=== PATIENT | female | born 1940 | race Caucasian/White ===

== ENCOUNTER 2019-02-01 09:09 | Day surgery (SDC) | payer MEDICARE, BC, SELFPAY ==
[2019-01-30 08:48] VITALS: BMI 28.7
[2019-02-01] VITALS (17 sets, daily range): BP systolic 138–174; BP diastolic 73–98; PULSE 65–100; RESP 14–25; TEMP 35.9–36.7; O2SAT 91–97; BMI 28.7
--- NOTE | 2019-02-01 | DI.RAD.S_ITS ---
PROCEDURE: XR CERVICAL SPINE 2V OR 3V INDICATIONS: C3-4, C4-5 ACDF TECHNIQUE: 2 view(s) of the cervical spine were acquired. COMPARISON: None. FINDINGS: Spot fluoroscopic intraoperative views demonstrating C3-C4 and C4-C5 interbody cage grafts with anterior retaining pins Expected intraoperative alignment Dictated by: Gil Meredith M.D. on 02/01/2019 at 12:54 Approved by: Gil Meredith M.D. on 02/01/2019 at 12:58
--- NOTE | 2019-02-01 10:26 | PM.PREOP ---
Pre-operative Note Interval Note History & Physical reviewed/Exam performed by Physician: Yes Changes to H&P: No
--- NOTE | 2019-02-01 10:26 | PM.OP.1 ---
Operative Date/Time/Diagnoses Date of procedure: 02/01/19 Time of procedure: 12:57 Pre-op diagnosis: Cervical stenosis with myelopathy Post-op diagnosis: same Procedure & Clinicians Procedure: C3-4, C4-5 anterior cervical diskectomy and fusion with cages Iliac crest bone graft aspirate Use of microscope Same procedure as scheduled: Yes Indications: [age] year old female with cervical myelopathy. They had failed conservative management and requested operative intervention. Risks and benefits of surgery were discussed and appropriate consents were obtained. Surgeon: Braxton Artis Still Runner: Raymundo Contreras Anesthesia Type: General Operative Notes Findings: None Closure Type: primary Specimen(s): none sent Prosthetic devices, grafts, tissues, transplants, or devices: Tod DELVIN-C Estimated Blood Loss (mL): 5 Blood products transfused: none Procedure in detail: Patient was brought to the operating room and intubated on the table. A time-out was performed. Preoperative antibiotics were given. The neck was prepped and draped in the standard sterile fashion. Using a skin fold, we made a 3 cm oblique incision on the left side. We used Bovie to go through the platysma and then did a standard anterolateral blunt dissection down to the precervical fascia. Fascia was nicked and elevated up. A marker was placed and x-ray was taken for localization. We then subperiosteally elevated up the longus colli muscles. Self-retaining retractors were placed. Highmore pins were placed. We then brought in the microscope. A scalpel used to perform an annulotomy. We then used a combination of pituitaries and curettes and Kerrison to perform a complete anterior diskectomy at C3-4. We used the bur to take down the posterior osteophytes. We took down the PLL and used Kerrison to remove any posterior disc material and osteophytes. At the end we could from the nerve hook cephalad caudally and out the foramen and everything was opened. A small stab incision was made over the left anterior iliac crest. A Jamshidi needle was advanced down the pedicle and 2 mL of bone marrow was aspirated. We then used the trials. We then packed a 14 x 17 x 6mm DELVIN-C cage with Primagen bone graft and the iliac crest harvest. The cage was placed under fluoroscopic guidance. We then placed our two locking plates. X-ray confirmed positioning. We then went down to C4-5. Again a complete anterior diskectomy was performed including taking down the PLL and removing the posterior osteophytes. At the end a nerve hook could be swept throughout and everything was open. We then used the trials. We then packed another 14 x 17 x6mm DELVIN-C cage with Primagen bone graft and the iliac crest harvest. The cage was placed under fluoroscopic guidance. We then placed our two locking plates. The self-retaining retractors and Highmore pins were removed and final x-rays taken. The wound was irrigated. The carotid was beating nicely. She was having some bony oozing. We used FloSeal which slow this down with the wrist a little bit of oozing left. I then placed a Mo drain in the neck to collect any further drainage. The platysma was closed. The superficial was closed. The skin was closed. A sterile dressing was placed. They were then extubated and brought to recovery room with no complications. Complications: none Post-operative Condition: stable Disposition: PACU Plan for aftercare: Inpatient. Up with therapy in the morning.
[2019-02-01] MEDS: LACTATED RINGERS 1,000 ML 42 ML IV ×2 (10:59→12:43)
[2019-02-01] MEDS: CEFAZOLIN 2 GM/100 ML FROZ.PIGGY IV ×2 (11:02→18:33)
--- NOTE | 2019-02-01 11:28 | SUR.OPER ---
Supine, head on gel donut. Arms padded with gel pads, tucked at sides, towel roll under shoulders. Safety belt at thigh. Legs uncrossed.
[2019-02-01] MEDS: SODIUM CHLORIDE 0.9% 1,000 ML, GENTAMICIN 80 MG IRR (11:40)
[2019-02-01] MEDS: THROMBIN (RECOMBINANT) 5,000 UNIT VIAL 5000 UNIT TOP (11:40)
[2019-02-01] MEDS: BUPIVACAINE 0.5% W/ EPI (PF) 10 ML VIAL INJ (11:42)
[2019-02-01] MEDS: fentaNYL 100 MCG/2 ML INJ IV ×2 (13:04→13:16)
[2019-02-01] MEDS: HYDROMORPHONE 2 MG INJ IV ×4 (13:05→13:41)
--- NOTE | 2019-02-01 14:32 | SUR.PHASEI ---
patient taken to floor in stable condition. Report given to receiving RN Irena. All belongings placed patient's room
--- NOTE | 2019-02-01 15:21 | PC.NURSE ---
Pt to floor at 1430. Dressing to anterior neck CDI. Soft collar in place. Pt states that she is having some pain but she is groggy at this time. RR are 14 but she is somulent. SAEED Yancey is floating and will be hanging pts ivf and doing her admission.. Pts spouse Hayley is in the room visiting now. Float RN to give patient some pain medication soon.
[2019-02-01] MEDS: LACTATED RINGERS 1,000 ML 125 ML IV (15:49)
[2019-02-01] MEDS: HYDROCODONE/ACET 5/325 TABLET 1 TAB PO ×2 (15:50→20:56)
[2019-02-01] MEDS: CELECOXIB 200 MG CAPSULE 400 MG PO (15:50)
--- NOTE | 2019-02-01 17:20 | PT-IP ANOTE ---
Attempt to eval pt with pt's spouse Hayley at bedside. Pt is very groggy but able to answer simple questions. She initially agreed to mobilize with PT but she then was not able to maintain conversation and alert. Pt's spouse answer questions for social hx. Will reattempt PT eval tomorrow morning.
[2019-02-01] MEDS: PANTOPRAZOLE 40 MG TABLET PO (20:56)
[2019-02-01] MEDS: GABAPENTIN 300 MG CAPSULE PO (20:56)
[2019-02-01] MEDS: CELECOXIB 200 MG CAPSULE PO (20:56)
[2019-02-01] MEDS: SENNOSIDES 8.6 MG TABLET 17.2 MG PO (20:57)
[2019-02-01] MEDS: DOCUSATE 100 MG CAPSULE PO (20:57)
[2019-02-01] MEDS: SERTRALINE 50 MG TABLET 150 MG PO (20:57)
[2019-02-01] MEDS: SIMVASTATIN 40 MG TABLET PO (20:57)
[2019-02-01] MEDS: BETAMETH DIP AUGM 0.05% OINT 15 GM 1 APPLIC TOP (20:58)
[2019-02-01] MEDS: BUSPIRONE 15 MG TABLET 30 MG PO (20:58)
[2019-02-02] MEDS: LACTATED RINGERS 1,000 ML 125 ML IV (00:05)
[2019-02-02] MEDS: CEFAZOLIN 2 GM/100 ML FROZ.PIGGY IV (03:33)
[2019-02-02] MEDS: HYDROCODONE/ACET 5/325 TABLET 1 TAB PO ×2 (03:38→08:49)
[2019-02-02 04:47] VITALS: BP 142/64; PULSE 65; RESP 16; TEMP 36.7; O2SAT 95
[2019-02-02] MEDS: LEVOTHYROXINE 88 MCG TABLET PO (06:06)
--- NOTE | 2019-02-02 07:11 | PM.PNPO.1 ---
Subjective Subjective Date Patient Seen: 02/02/19 Time Patient Seen: 07:11 Interval history: Pain under good control. She still wobbly with her balance but no different than she was coming into surgery. Exam Vital Signs (past 8 hours): - 02/01/19 23:50 02/02/19 04:47 Temperature 98.0 F 98.1 F Pulse Rate 95 H 65 Respiratory Rate 15 16 Blood Pressure 149/80 H 142/64 H Pulse Oximetry 95 95 Oxygen Delivery Method Nasal Cannula Oxygen Flow Rate 1 Const Orientation: alert and oriented x3 Back/Spine/Pelvis Other: CDI. 5/5 motor both upper extremities. Drain output 70/20 Assessment & Plan Post-op Postoperative Procedures: Procedures Operation Date: 02/01/19 11:15 Actual Procedures Side Surgeon p C34 & C45 anterior cervical discectomy and fusion w/ bone graft and hardware Not Applicable Braxton Artis MD She is doing well. I removed her drain. Plan to discharge her home today.
[2019-02-02 08:00] VITALS: BP 109/55; PULSE 64; RESP 16; TEMP 36.7; O2SAT 93
[2019-02-02] MEDS: DOCUSATE 100 MG CAPSULE PO (08:49)
[2019-02-02] MEDS: CELECOXIB 200 MG CAPSULE PO (08:49)
[2019-02-02] MEDS: BETAMETH DIP AUGM 0.05% OINT 15 GM 1 APPLIC TOP (08:50)
--- NOTE | 2019-02-02 09:02 | PT.IIE ---
Current Diagnoses Other spondylosis with myelopathy, cervical region (02/01/19) Spinal stenosis, cervical region (02/01/19) Cervicalgia (02/01/19) Surgery Performed Operation Date: 02/01/19 11:15 Actual Procedures p C34 & C45 anterior cervical discectomy and fusion w/ bone graft and hardware(Not Applicable) - Braxton Artis MD Surgical History (Last Updated 01/30/19 @ 09:45 by Sarah Duff RN) History of arthroplasty of right knee (Acute) History of carpal tunnel release (Acute) Hx of abdominal surgery (Acute) Hx of appendectomy (Acute) Hx of bilateral cataract extraction (Acute) Hx of hemorrhoidectomy (Acute) Hx of knee surgery (Acute) Hx of shoulder surgery (Acute) S/P left unicompartmental knee replacement (Acute 05/22/17) Medical History (Last Updated 01/30/19 @ 09:45 by Sarah Duff RN) ADHD (Acute) Anxiety (Acute) Asthma (Acute) BCC (basal cell carcinoma) (Acute) Bradycardia (Acute) Chronic back pain (Acute) Chronic neck pain (Acute) CKD (chronic kidney disease), stage III (Acute) Depression (Acute) Dermatitis (Acute) Ectopic beats (Acute) Fragile skin (Acute) GERD (gastroesophageal reflux disease) (Acute) Hearing loss (Acute) Hemorrhoids (Acute) Hepatitis C (Acute) HLD (hyperlipidemia) (Acute) Hypothyroidism (Acute) Osteoarthritis (Acute) Rheumatic fever (Acute ~194) RLS (restless legs syndrome) (Acute) SCC (squamous cell carcinoma) (Acute ~10/2018) Spinal stenosis (Acute) Vertigo (Acute) Physical Therapy Inpatient Evaluation/Re-Eval M1 PT/OT-IP Prior Functional Status Start: 02/01/19 16:34 Freq: NEEDED Status: Discharge Protocol: Document 02/02/19 09:02 AB (Rec: 02/02/19 13:32 AB [id number]) Medical Review Prior Functional Status Medical History Reviewed Yes Diet/Fluid Consistency Regular Communication Able to make needs known Mobility and Gait pt stated that she is modified independent with all mobilities and ambulation using SPC indoors but uses her ski poles for outdoor mobility. stated that she has dizziness for a while that is the reason why she had her cervical sx. Social History Household Members spouse Living Arrangements House Number of Floors (Floors) Two Floors Number of Stairs To Enter/Railing? 3 ELISE without rail. 13 steps to bottom floor (R rail down and L sided wall for support) Bathroom with walk in shower on the bottom floor bathroom with tub on the main floor. Home Environment Standard Height Toilet,Walk in Shower,Tub/Shower,Built-In Shower Seat Home Equipment Front Wheel Walker,Straight Cane,Shower Seat with Backrest Employment Status Retired M2 PT-IP Current Condition Start: 02/01/19 16:34 Freq: NEEDED Status: Discharge Protocol: Document 02/02/19 09:02 AB (Rec: 02/02/19 13:32 AB [id number]) Physical Therapy Current Condition Current Condition Evaluation Date 02/02/19 Treatment Diagnosis C3-4, C4-5 ACDF; difficulty in walking Onset Date 02/01/19 Precautions Cervical Spine Precautions Soft Collar for Comfort,No Heavy Lifting,Log Roll M3 PT-IP Subjective Start: 02/01/19 16:34 Freq: NEEDED Status: Discharge Protocol: Document 02/02/19 09:02 AB (Rec: 02/02/19 13:32 AB [id number]) Subjective Physical Therapy Visit Type Type Initial Evaluation Visit Start Time 09:02 Visit Stop Time 09:57 Total Visit Minutes 55 Number of SQL SERVER ARCHITECT Visits 0 Physical Therapy Visit Comments Patient Comments pt agreeable to do PT; [place] Therapy Pain Assessment Pain When Pain Assessed At Rest Pain Present Pain Present Pain Reported Location Neck Intensity 3 Scale Used Numeric (1 - 10) Pain Management Techniques Re-positioning,Timing of Activity with Medications M4 PT-IP Mobility and Gait Start: 02/01/19 16:34 Freq: NEEDED Status: Discharge Protocol: Document 02/02/19 09:02 AB (Rec: 02/02/19 13:32 AB [id number]) PT-Bed Mobility Assessment Supine to Sit Supine to Sit Standby Assistance Sit to Supine Sit to Supine Standby Assistance PT-Transfer Assessment Sit to and From Stand Sit to and from Stand Contact Guard Assistance Equipment Transfer Assistive Device Gait Belt,Front Wheeled Walker Orthotic/Prosthetic Devices or Brace: No Transfers Transfer Destination Chair Transfer Technique ambulated using FWW Transfer Ability Level of Assist Contact Guard Assistance Comments Mobility Comments bed mobility training x 3 sets : required initial cues but able to complete without cues on last set caregiver training conducted with spouse. educated on use of safety belt on how to assist pt. spouse was able to assist pt with transfers, ambulation using SPC safely. Gait Assessment Gait Gait Assistance Required: Contact Guard Assist,Minimum Assistance Distance (Feet) 40 Able to Maintain Weight Bearing Status Yes During Gait Assistive Devices Assistive Device Gait Belt,Straight Cane,Front Wheeled Walker Orthotic/Prosthetic Devices or Brace: No Gait Deviations General Gait Pattern Antalgic,Decreased Stride Length,Decreased Feet Clearance,Step-to Gait Factors Limiting Gait Function Factors Limiting Gait Function Decreased Activity Tolerance, Decreased Strength,Difficulty Following Directions,Limited Range of Motion,Pain,Poor Balance,Poor Safety Awareness Comments Gait Comments pt completed ambulation using FWW CGA ~ 30 ft. completed ambulation using SPC 40 ft CGA to min A and cues. educated pt on safety and use of FWW for safety. pt and spouse agreed. Stair Climbing Assessment Evaluation Level of Assist On Stairs Minimal Assistance,1 Person Assistance Devices Stair Climbing Assistive Devices Straight Cane Technique/Endurance Stair Climbing Direction Ascend and Descend Stair Climbing Technique Step to Step Number of Steps Climbed 1 Query Text: Stair Climbing Set # Repetitions (reps) 3 Comments Stair Climbing Comments completed up/down step stool using SPC and BASEBALL GLOVE SHAPER and pt completed with PT assisting initially min A. educated spouse on how to assist pt and completed up/down step with pt and spouse was able to assist pt safely. PT-Balance Assessment Sitting Balance and Reactions Static Sitting Balance Ability Normal Dynamic Sitting Balance Ability Good Standing Balance and Reactions Static Standing Balance Ability Fair Dynamic Standing Balance Ability Fair Device Used SPC M5 PT-IP Objective Assessments Start: 02/01/19 16:34 Freq: NEEDED Status: Discharge Protocol: Document 02/02/19 09:02 AB (Rec: 02/02/19 13:32 AB [id number]) Orientation Orientation/Cognition Level of Alertness Alert Orientation Name,Place,Situation Safety Awareness Decreased Safety Awareness Gross Range of Motion Lower Extremity ROM Assessment Within Functional Limits Strength Lower Extremity Strength Assessment Within Functional Limits Muscle Tone Muscle Tone WNL Yes M6 PT-IP Treatment Start: 02/01/19 16:34 Freq: NEEDED Status: Discharge Protocol: Document 02/02/19 09:02 AB (Rec: 02/02/19 13:32 AB [id number]) Physical Therapy Treatment Education Education Provided Precautions,Weight Bearing Status,Post-Op Packet,Safety M7 PT-IP Assessment and Plan Start: 02/01/19 16:34 Freq: NEEDED Status: Discharge Protocol: Document 02/02/19 09:02 AB (Rec: 02/02/19 13:32 AB [id number]) PT Summary Assessment and Plan Potential Rehabilitation Potential Good Status of Condition at Evaluation Stable Summary Impairments Pain,ROM,Strength,Balance, Coordination,Sensation,Bed Mobility,Transfers,Gait, Activity Tolerance Assessment Summary pt doing well with mobility but requires assistance for safety. caregiver training conducted and spouse was able to assist pt safely. pt plans to go home today. Goals Bed Mobility Goal Independent Transfer Goal Independent,Cane,Front Wheeled Walker Gait Goal Independent,Cane,Front Wheel Walker Gait Distance 200 Other Goals up/down 3 steps without rails SBA Days to Meet Goals 3 Frequency of Treatment Frequency Of Treatment Twice a Day Treatment Plan Physical Therapy Treatment Plan Bed Mobility Training,Transfer Training,Gait Training, Therapeutic Exercise,Balance Retraining,Post Op Education, Discharge Planning,Hot or Cold Pack,Neuromuscular Re-ed, Coordination Retraining,Manual Therapy Recommendations To Nursing Amount of Assist Needed 1 Person Assist Discharge Recommendations PT Discharge Recommendations Home with Assistance, Outpatient PT
--- NOTE | 2019-02-02 10:55 | OT.IP.EVAL ---
Current Diagnoses Other spondylosis with myelopathy, cervical region (02/01/19) Spinal stenosis, cervical region (02/01/19) Cervicalgia (02/01/19) Surgery Performed Operation Date: 02/01/19 11:15 Actual Procedures p C34 & C45 anterior cervical discectomy and fusion w/ bone graft and hardware(Not Applicable) - Braxton Artis MD Past Medical History (Last Updated 01/30/19 @ 09:45 by Sarah Duff RN) ADHD (Acute) Anxiety (Acute) Asthma (Acute) BCC (basal cell carcinoma) (Acute) Bradycardia (Acute) Chronic back pain (Acute) Chronic neck pain (Acute) CKD (chronic kidney disease), stage III (Acute) Depression (Acute) Dermatitis (Acute) Ectopic beats (Acute) Fragile skin (Acute) GERD (gastroesophageal reflux disease) (Acute) Hearing loss (Acute) Hemorrhoids (Acute) Hepatitis C (Acute) HLD (hyperlipidemia) (Acute) Hypothyroidism (Acute) Osteoarthritis (Acute) Rheumatic fever (Acute ~1943) RLS (restless legs syndrome) (Acute) SCC (squamous cell carcinoma) (Acute ~10/2018) Spinal stenosis (Acute) Vertigo (Acute) Surgical History (Last Updated 01/30/19 @ 09:45 by Sarah Duff RN) History of arthroplasty of right knee (Acute) History of carpal tunnel release (Acute) Hx of abdominal surgery (Acute) Hx of appendectomy (Acute) Hx of bilateral cataract extraction (Acute) Hx of hemorrhoidectomy (Acute) Hx of knee surgery (Acute) Hx of shoulder surgery (Acute) S/P left unicompartmental knee replacement (Acute 05/22/17) Occupational Therapy Inpatient Evaluation/Re-Eval M1 PT/OT-IP Prior Functional Status Start: 02/01/19 16:34 Freq: NEEDED Status: Active Protocol: Document 02/02/19 13:57 CGR (Rec: 02/02/19 14:10 CGR [id number]) Medical Review Prior Functional Status Medical History Reviewed Yes Diet/Fluid Consistency Regular Communication Able to make needs known Mobility and Gait pt stated that she is modified independent with all mobilities and ambulation using SPC indoors but uses her ski poles for outdoor mobility. stated that she has dizziness for a while that is the reason why she had her cervical sx. Activities of Daily Living and IADL's Pt was IND for all ADLs Social History Household Members spouse Living Arrangements House Number of Floors (Floors) Two Floors Number of Stairs To Enter/Railing? 3 ELISE without rail. 13 steps to bottom floor (R rail down and L sided wall for support) Bathroom with walk in shower on the bottom floor bathroom with tub on the main floor Pt states they typically stay on the main floor. 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 M2 OT-IP Current Condition Start: 02/02/19 13:57 Freq: Status: Active Protocol: Document 02/02/19 13:57 CGR (Rec: 02/02/19 14:10 CGR [id number]) Occupational Therapy Current Condition Current Condition Evaluation Date 02/02/19 Treatment Diagnosis c3-5 anterior cervical discectomy and fusion. Post Operative Precautions Cervical Spine Precautions Soft Collar for Comfort,No Heavy Lifting,Log Roll M3 OT- IP Subjective and Pain Start: 02/02/19 13:57 Freq: Status: Active Protocol: Document 02/02/19 13:57 CGR (Rec: 02/02/19 14:10 CGR [id number]) OT- Subjective Occupational Therapy Visit Type Type Initial Evaluation Visit Start Time 09:55 Visit Stop Time 10:55 Total Visit Minutes 60 Notes Pt provided with hip kit and educated on LB dressing using hip kit. OT Pain Assessment Pain When Pain Assessed At Rest Pain Present Pain Present Pain Reported Location Neck Intensity 2 Scale Used Numeric (1 - 10) Management Techniques Timing of Activity with Medications M4 OT- IP ADL's Start: 02/02/19 13:57 Freq: Status: Active Protocol: Document 02/02/19 13:57 CGR (Rec: 02/02/19 14:10 CGR [id number]) OT [id number] Comments OT Self-Feeding Comments not meal time OT ADL-Grooming General Evaluation Grooming Ability Independent Areas Needing Assistance Retrieving/Set-up of Grooming Items,Face Washing Comments OT Grooming Comments standing at sink OT ADL-Oral Care General Eval Oral Care Ability Independent Comments Oral Care Comments standing at sink OT ADL-Dressing General Eval Upper Body Dressing Ability Independent Lower Body Dressing Ability Standby Assistance Areas Needing Assistance Underpants/Brief,Socks,Shoes Assistive Devices Dressing Assistive Devices Traffic Operations Engineer,Sock Aid Comments OT Dressing Comments Pt educated on use of hip kit and provided with hip kit for home use. OT ADL-Toileting General Evaluation Toileting Ability Independent OT ADL-Bathing Comments OT Bathing Comments not performed in this session. M5 OT- IP IADL's Start: 02/02/19 13:57 Freq: Status: Active Protocol: Document 02/02/19 13:57 CGR (Rec: 02/02/19 14:10 CGR [id number]) OT-Instrumental Activities of Daily Living Deficits IADL Deficits Identified Deficits Home Safety Awareness Awareness of Need for Assistance at Home Good Awareness Ability to Problem Solve Emergency Able to Problem Solve Situations Medication Management Medication Management No Deficits Identified Money Management Money Management No Deficits Identified Meal Preparation Meal Preparation Caregiver Provides Assist Heel Packer Heel Packer Caregiver Provides Assist Driving Driving Caregiver Provides Assist M6 OT- IP Functional Cognition Start: 02/02/19 13:57 Freq: Status: Active Protocol: Document 02/02/19 13:57 CGR (Rec: 02/02/19 14:10 CGR [id number]) Cognitive Factors Limiting Selfcare Function Cognitive Ability Level of Alertness Alert Patient Orientation Name,Age,Birthday,Month,Date, Year,Day of Week,Place, Situation Attention Span Ability Capable of Focused Attention, Capable of Sustained Attention Ability to Follow Commands Able to Follow Multi-Step Commands Memory Description No Deficits Noted Safety Awareness No Deficits Noted Problem Solving Ability No deficits Noted Executive Function Ability No Deficits Noted Abstract Thinking Ability No Deficits Noted OT- Vision and Hearing OT- Hearing Assessment OT- Hearing Assessment Use of Hearing Aids OT- Vision Assessment Vision History Cataracts Visual Acuity WFL,Glasses For Reading Visual Attentiveness WFL Occular Pursuits WFL Visual Convergence WFL Visual Moore WFL Vision Assessment Comments Pt has a hx of cateract sx. M7 OT- IP Mobility and Balance Start: 02/02/19 13:57 Freq: Status: Active Protocol: Document 02/02/19 13:57 CGR (Rec: 02/02/19 14:10 CGR [id number]) OT-Transfer Assessment Sit to and From Stand Sit to and from Stand Contact Guard Assistance Transfers Transfer Ability Contact Guard Assistance Technique Transfer Destination Chair,Toilet Transfer Technique Stand Step Pivot Devices Transfer Assistive Devices Gait Belt,Front Wheeled Walker Comments Mobility Comments mobility around the room. OT- Gait Assessment Gait Gait Assistance Required: Contact Guard Assist Assistive Devices Assistive Device Gait Belt,Front Wheeled Walker Comments Gait Ability Comments mobility around the room. OT- Balance Assessment Sitting Balance and Reactions Static Sitting Balance Ability Good Dynamic Sitting Balance Ability Fair M8 OT- IP Objective Assessments Start: 02/02/19 13:57 Freq: Status: Active Protocol: Document 02/02/19 13:57 CGR (Rec: 02/02/19 14:10 CGR [id number]) OT Gross Range of Motion Upper Extremity Range of Motion Assessment Within Functional Limits OT Strength Upper Extremity Strength Assessment Within Functional Limits Comments Strength Comments noted weakness to the R hand which pt states was there prior to sx. Pt is right handed. OT- Coordination Assessment Upper Extremity Finger to Nose Test Within Functional Limits Finger Tapping Test Within Functional Limits OT-Muscle Tone Assessment Muscle Tone WNL Yes OT Sensation Assessment Edema Edema Absent M9 OT- IP Assessment and Plan Start: 02/02/19 13:57 Freq: Status: Active Protocol: Document 02/02/19 13:57 CGR (Rec: 02/02/19 14:10 CGR [id number]) OT Summary Assessment and Plan Potential Rehabilitation Potential Excellent Analytic Complexity at Evaluation Low Summary OT Impairments Pain,Strength,Balance,Grooming ,Dressing,Toileting,Bathing, Toilet Transfers,Shower Transfers Progress Towards Goals Progressing Toward Goals Assessment Summary Pt presents as a low complexity evaluation. Pt is s /p C3-5 anterior discectomy and fusion and is reporting some pain with activity. Pt is progressing well and likely is ready for discharge home with spouse who appears very supportive. Pt educated on cervical precautions and home safety. Pt demonstrated ability to use hip kit for LB dressing. No further OT needs at this time. Frequency of Treatment Frequency Of Treatment Discharge Discharge Recommendations OT Discharge Recommendations Home with Assistance
--- NOTE | 2019-02-02 11:14 | PC.NURSE ---
Pts dressing to anterior neck changed by Dr. Artis this morning. JOYCELYN drain taken out.. Soft collar in place. Pt worked with physical therapy and occupational therapy and is now going to be discharged. She does have some balance issues but her significant other is home with patient and attentive to needs.
== END 2019-02-02 11:35 | disposition home or self-care (01) ==
LOC: AC 02-02 11:16 → OR 02-03 11:09
PROVIDERS: PCP Family Medicine; Visit Provider Orthopaedic Surgery
PROC: (CPT 22551; principal; 2019-02-01 11:15)
DX: M48.02 Spinal stenosis, cervical region (principal); M47.12 Other spondylosis with myelopathy, cervical region; M25.78 Osteophyte, vertebrae
CPT/HCPCS: 22551; 22552; 22853 ×2; 20939; 72040; 76000; 97161; 97165; 97530; 97535; C1776; J0330; J0690; J1100; J1170; J2405; J2704; J3010

== ENCOUNTER → 2020-01-21 12:44 | Outpatient (CLI) | payer MEDICARE, BC, SELFPAY ==
[2019-02-01 15:59] VITALS: BMI 28.7
--- NOTE | 2020-01-21 | DI.MRI.S_ITS ---
PROCEDURE: MR LUMBAR SPINE WO CON INDICATIONS: Low back pain TECHNIQUE: Noncontrast sagittal T1 spin echo and T2 fast echo, sagittal STIR, axial T1 and T2 fast spin echo through the lumbar spine. In cases with scoliosis, additional coronal T2 fast spin echo may be performed. COMPARISON: [facility], MR, MR LUMBAR SPINE WITHOUT CONTRAST, 12/24/2018, 18:50. [facility] [place], CR, XR LUMBAR SPINE 2 OR 3 VIEWS, 01/13/2020, 10:21. FINDINGS: Image quality: Excellent. Alignment and Curvature: There is trace retrolisthesis of L1 on L2, L2 on L3, L3 on L4, trace anterolisthesis of L4 on L5. Bone Marrow: Marrow is of normal overall signal. However, there is increased signal identified along the superior endplate of L3 with linear hypointensity on T1 sequence. Prominent Schmorl's nodes are noted along superior endplates of L2, L4 and L5 as well as inferior endplates of L1, L2, L3 and L4. No acute vertebral body compression fractures. Spinal Cord: Conus medullaris terminates at the L1-L2 level. Visualized cord demonstrates normal signal and size. Paraspinous Soft Tissues: No paravertebral masses. Discs: Moderate to severe desiccation is present throughout the lumbar spine. L1-L2: Mild disc bulge with mild spinal stenosis. Moderate to severe left and mild right foraminal narrowing with facet and ligamentum flavum hypertrophy. Slight interval progression on the left is noted. L2-L3: Mild disc bulge with moderate spinal stenosis. Mild right and ngwc-ee-cznywpay left foraminal narrowing with facet and ligamentum flavum hypertrophy. No interval change. L3-L4: Mild disc bulge with moderate spinal stenosis. Dtio-pu-nkdwfjuz bilateral foraminal narrowing with slight interval progression on the right compared to prior exam. Facet and ligamentum flavum hypertrophy are present. L4-L5: Mild disc bulge with moderate to severe spinal stenosis with slight flattening of the anterior canal. Severe right and moderate left foraminal narrowing with facet and ligamentum flavum hypertrophy. There is slight compression of the exiting L4 nerve root, unchanged. L5-S1: Mild disc bulge with mild spinal stenosis. Moderate to severe bilateral foraminal narrowing with facet hypertrophy, minimally progressive. IMPRESSION: 1. Multilevel degenerative changes with areas of slight interval progression as noted above. 2. Multilevel foraminal narrowing most severe at L4-5 secondary to facet arthropathy. 3. Increased marrow signal at L3 with linear hypointensity along the superior endplate suggestive of subacute fracture. Dictated by: Gerri Carlson M.D. on 01/21/2020 at 16:47 Approved by: Gerri Carlson M.D. on 01/21/2020 at 16:55
== END ==
PROVIDERS: PCP Family Medicine; Referring Provider Family Medicine; Visit Provider Orthopaedic Surgery
DX: M54.5 Low back pain (principal); M47.816 Spondylosis without myelopathy or radiculopathy, lumbar region; M48.061 Spinal stenosis, lumbar region without neurogenic claudication
CPT/HCPCS: 72148

== ENCOUNTER → 2020-01-27 14:00 | Outpatient (CLI) | payer MEDICARE, BC, SELFPAY ==
[2019-02-01 15:59] VITALS: BMI 28.7
[2020-01-27 15:49] LABS: COVID19 -Nasal RAPID Negative (Negative)
== END ==
PROVIDERS: PCP Family Medicine; Visit Provider Physician Assistant
DX: Z11.59 Encounter for screening for other viral diseases (principal)
CPT/HCPCS: 87635

== ENCOUNTER → 2020-01-29 11:45 | Outpatient (CLI) | payer MEDICARE, BC, SELFPAY ==
[2019-02-01 15:59] VITALS: BMI 28.7
[2020-01-29 12:31] LABS: Add Manual Diff / Slide Review NO; Basophils Absolute Auto 100 /uL (0-100); Basophils Percent Auto 0.7 % (0-2); Eosinophils Absolute Auto 200 /uL (0-450); Eosinophils Percent Auto 2.3 % (2-4); Hematocrit 35.7 % (36-46); Lymphocytes Absolute Auto 1500 /uL (1100-4500); Lymphocytes Percent Auto 18.5 % (25-40); Mean Corpuscular HGB Conc 33.7 % (30-36); Mean Corpuscular Hemoglobin 33.1 PG (26-34); Mean Corpuscular Volume 98.2 fL (80-100); Monocytes Absolute Auto 300 /uL (0-900); Monocytes Percent Auto 4.2 % (3-14); Neutrophils Absolute Auto 5900 /uL (1500-7000); Neutrophils Percent Auto 74.3 % (50-75); Platelet Count 199 X10^3/uL (150-400); Red Blood Cell Count 3.64 X10^6/uL (4.0-5.2); Red Cell Distribution Width 13.6 % (11.6-14.8); White Blood Cell Count 7.9 X10^3/uL (4.5-11.0)
== END ==
PROVIDERS: PCP Family Medicine; Referring Provider Orthopaedic Surgery; Visit Provider Orthopaedic Surgery
DX: Z01.812 Encounter for preprocedural laboratory examination (principal); Z01.818 Encounter for other preprocedural examination
CPT/HCPCS: 36415; 85025; 93005

== ENCOUNTER 2020-01-29 12:28 | Day surgery (SDC) | payer MEDICARE, BC, SELFPAY ==
[2019-02-01 15:59] VITALS: BMI 28.7
[2020-01-27 12:05] VITALS: BMI 29.8
[2020-01-29] VITALS (27 sets, daily range): BP systolic 104–163; BP diastolic 60–91; PULSE 64–129; RESP 12–16; TEMP 36.2–36.9; O2SAT 91–99; BMI 29.8
--- NOTE | 2020-01-29 | DI.RAD.S_ITS ---
PROCEDURE: XR LUMBAR SPINE MIN 4V INDICATIONS: KYPHOPLASTY L3 TECHNIQUE: To views of the lumbar spine acquired. COMPARISON: None. FINDINGS: Postprocedural changes compatible with L3 kyphoplasty. Contrasted methylmethacrylate contained within the L3 vertebral body. IMPRESSION: Expected postprocedural change for L3 kyphoplasty. Dictated by: Barbara Ribeiro MD, PhD on 01/29/2020 at 17:36 Approved by: Barbara Ribeiro MD, PhD on 01/29/2020 at 17:37
--- NOTE | 2020-01-29 | PATH_ITS ---
[facility] Accession Number: [id number] . 01 Material submitted: . back - BONE LUMBAR SPINE, L-3 . 01 Clinical history: . SDC . 01 Diagnosis: Bone, Lumbar Spine, Biopsy: Fragments of marrow with trilineage hematopoiesis and focal fibrosis and minimal fragments of bone. No evidence of malignancy identified in sections examined. MRV 01/31/2020 1651 Local . 01 Electronically signed: . Jayden Lee MD, Dermatopathologist NPI- [id number] . 01 Gross description: . BONE LUMBAR SPINE, L-3: Received in formalin are minute fragments of bone and hemorrhagic material measuring 1.7 x 0.7 x 0.2 cm in aggregate. Submitted in toto in 1 cassette. /QBJ 01/30/2020 0936 Local . 01 Pathologist provided ICD-10: S32.030A . 01 CPT . 904306 Performed at: [address] [facility] [address], [place], [place] [id number] MD Benitez Jacobs MD Phone: [phone]
[2020-01-29] MEDS: LACTATED RINGERS 1,000 ML 42 ML IV (13:46)
--- NOTE | 2020-01-29 15:32 | PM.HP.1 ---
History of Present Illness History of Present Illness Date Patient Seen: 01/29/20 Time Patient Seen: 15:32 Chief complaint: SDC Narrative: 79-year-old female with back pain. She fell down going down the stairs a few weeks ago and has had severe increasing pain since. She denies pain numbness or weakness in the legs although they feel wobbly. She has been basically bedridden. Vicodin as help with pain but it still severe. Patient History Medical History ADHD Anxiety Asthma BCC (basal cell carcinoma) Bradycardia Chronic back pain Chronic neck pain CKD (chronic kidney disease), stage III Depression Dermatitis Ectopic beats Fragile skin GERD (gastroesophageal reflux disease) Hearing loss Hemorrhoids Hepatitis C HLD (hyperlipidemia) Hypothyroidism Osteoarthritis Rheumatic fever (~194) RLS (restless legs syndrome) SCC (squamous cell carcinoma) (~10/2018) Spinal stenosis Vertigo Surgical History History of arthroplasty of right knee History of carpal tunnel release Hx of abdominal surgery Hx of appendectomy Hx of bilateral cataract extraction Hx of fusion of cervical spine (02/01/19) Hx of hemorrhoidectomy Hx of knee surgery Hx of shoulder surgery 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) Family & Social History Social History: household members spouse Prior Living Arrangements House Safety & Behavioral: Feels Safe in Current Yes Environment Been Physically Hurt or No Threatened By a Person Suicidal Ideation Description None Suicide Plan Description No Plan Tobacco & Substance use: Smoking Status Never smoker alcohol intake current alcohol intake frequency holiday/special occasion Substance Use Type does not use Meds Home Medications and Allergies Home Medications Medication Instructions Recorded Confirmed Type levothyroxine 0.088 mg PO QAM #90 tab 08/02/16 01/29/20 Rx albuterol sulfate 90 mcg/actuation 2 puff INHALATION Q4-6H PRN 09/17/18 01/27/20 History aerosol inhaler lorazepam 0.5 mg tablet 0.25 mg PO BID-TID PRN #30 tab 09/17/18 01/29/20 Rx simvastatin 40 mg tablet 40 mg PO BEDTIME 09/17/18 01/29/20 History betamethasone valerate 1 applic TOPICAL BID 01/30/19 01/27/20 History esomeprazole magnesium [Nexium] 40 mg PO BEDTIME 01/30/19 01/29/20 History hydrocodone-acetaminophen 1 tab PO Q4HR PRN #20 tab 02/02/19 01/29/20 Rx sertraline 100 mg tablet 150 mg PO BEDTIME #45 tab 06/07/19 01/29/20 Rx buspirone 30 mg tablet 30 mg PO BEDTIME tab 07/22/19 01/29/20 History Allergies Allergy/AdvReac Type Severity Reaction Status Date / Time atorvastatin [ATORVASTATIN] AdvReac Intermediate stomach Verified 07/22/19 15:08 cramps GENERAL ANESTHESIA AdvReac Severe SOMNOLENCE Uncoded 07/22/19 15:08 Exam Vital Signs (past 8 hours): - 01/29/20 13:11 Temperature 98.4 F Pulse Rate 64 Respiratory Rate 16 Blood Pressure 141/69 H Pulse Oximetry 99 Oxygen Delivery Method Room Air Const Orientation: alert and oriented x3 Resp Auscultation: clear to auscultation bilaterally Cardio Rate: regular rate Rhythm: regular rhythm Back/Spine/Pelvis Other: Tender in the midline across the mid lumbar spine as well as the lower bilateral paraspinals. 5/5 motor negative straight leg raising both lower extremities. Objective Imaging Lumbar MRI: My impression: From 01/21/2020 shows an acute L3 compression fracture. No retropulsion. Moderate stenosis at L3-4 moderate to severe central stenosis at L4-5. Assessment & Plan Assessment & Plan narrative: Acute L3 compression fracture with intractable back pain. She has failed conservative management and the pain is intractable. We are planning to go ahead with an L3 kyphoplasty for this. We may need to address the stenosis in the future before now we need to stabilize the compression fracture. COVID-19 COVID-19 status: Negative Result date/Date tested (Pos, Neg/Pending): 01/27/20
--- NOTE | 2020-01-29 15:37 | P.OP_ITS ---
Operative Date/Time/Diagnoses Date of procedure: 01/29/20 Time of procedure: 17:00 Pre-op diagnosis: Acute L3 compression fracture Osteoporosis with current pathologic fracture Back pain Post-op diagnosis: same Procedure & Clinicians Procedure: L3 kyphoplasty Same procedure as scheduled: Yes Indications: [age] year old female with intractable pain from an acute L3 compression fracture. They had failed conservative management and requested operative intervention. Risks and benefits of surgery were discussed and appropriate consents were obtained. Surgeon: Braxton Artis Click Yes if Unassisted: Yes Operative Notes Findings: None Closure Type: primary Specimen(s): other (L3 vertebral biopsy) Estimated Blood Loss (mL): 2 Procedure in detail: The patient was brought to the operating room and intubated on the table. They were then rolled over to the well-padded prone position. Time -out was performed. We confirmed positioning with two fluoroscopy views. The back was prepped and draped in the standard sterile fashion. Preoperative antibiotics were given. Using fluoroscopic guidance, the planned incision site was infiltrated with Marcaine with epinephrine and injected down to the entry site of the left pedicle of L3. A small stab incision was made and we advanced a Jamshiedi needle down to the the left pedicle. However, due to the angle I had need to make a 2nd incision lower to be able to adequately cannulate the pedicle and we went down the left pedicle of L3 into the vertebral body. We made multiple passes and attempts to get bone biopsy material from the L3 vertebral body. We had several small pieces that were sent off to pathology. We then passed the DFine osteotome and opened it up to create a void inside the vertebral body. We then began injecting the cement. This was done with frequent fluoroscopy imaging. There was no extravasation. Once we had good fill of the L3 vertebral body the injection was stopped and the trocars were removed. Final x-rays were taken. The wound was cleaned. Steri-Strips and sterile dressing were placed. Patient was rolled over, extubated, and brought to recovery without complications. Complications: none Post-operative Condition: stable Disposition: PACU Plan for aftercare: Outpatient. Activity as tolerated.
[2020-01-29] MEDS: CEFAZOLIN 2 GM/100 ML FROZ.PIGGY IV (16:25)
--- NOTE | 2020-01-29 16:36 | SUR.OPER ---
Prone on spine table, head in foam head support, padded chest and pelvic supports, gel pad at knees, lower legs supported by pillows; nipples, genitalia and toes free of pressure, arms secured on foam padded arm boards at <90 degrees abduction. Tape over blanket at thigh secured to table.
[2020-01-29] MEDS: BUPIVACAINE 0.25% W/ EPI (PF) 10 ML VIAL 20 ML INJ (16:43)
[2020-01-29] MEDS: fentaNYL 100 MCG/2 ML INJ IV ×2 (17:15→17:20)
[2020-01-29] MEDS: HYDROMORPHONE 2 MG INJ IV ×4 (17:26→17:50)
[2020-01-29] MEDS: OXYCODONE/ACETAMINOPHEN 5/325 TABLET 1 TAB PO ×2 (17:34→18:04)
--- NOTE | 2020-01-29 18:29 | SUR.PHASEI ---
Report to [facility], pt in stable condition pain tolerable at 6/10 attempted to wean off 2L oxygen but dips down to 89 when she falls asleep. 2L O2 kept on.
--- NOTE | 2020-01-29 18:49 | SUR.PHASEI ---
pt. is not able to sit up without having a lot of px, is unable to verbalizes px number but just whispers moderate, however she doesn't want to move. wanted ice chips but is just holding the cup and not taking them. she appears very tired and unable tolerate the back px. she states she feels very weak and now dizzy. ongoing monitoring. dr. valle texted to have pt. admitted and he stated he will work on it. currently holding o2 sats at 92% on ra.
--- NOTE | 2020-01-29 19:00 | SUR.PHASEI ---
raman bergeron'anabel S.O at beside.
[2020-01-29] MEDS: ONDANSETRON 4 MG/2 ML INJ IV (19:09)
[2020-01-29] MEDS: LACTATED RINGERS 1,000 ML 125 ML IV (19:20)
--- NOTE | 2020-01-29 19:25 | PC.NURSE ---
[facility]drowsey IVF LR@ 125cc/hr infusing via pump into RFA Small dsg on back w/ shadow drainage noted. Pt oriented to room & call system. Call light w/in reach, bed alarm on for pt safety.
[2020-01-29] MEDS: DOCUSATE 100 MG CAPSULE PO (20:45)
[2020-01-29] MEDS: SIMVASTATIN 40 MG TABLET PO (20:45)
[2020-01-29] MEDS: SENNOSIDES 8.6 MG TABLET 17.2 MG PO (20:45)
[2020-01-29] MEDS: PANTOPRAZOLE 40 MG TABLET PO (20:45)
[2020-01-29] MEDS: SERTRALINE 50 MG TABLET 150 MG PO (20:45)
[2020-01-29] MEDS: BUSPIRONE 15 MG TABLET 30 MG PO (20:45)
--- NOTE | 2020-01-29 22:49 | PC.NURSE ---
no complaints of pain. pt has been sleepy most of the night. pt will call for pain meds. IVF. CMS+. not oob.
[2020-01-30 00:20] VITALS: BP 118/73; PULSE 82; RESP 14; TEMP 36.4; O2SAT 96
[2020-01-30] MEDS: LACTATED RINGERS 1,000 ML 125 ML IV (03:08)
[2020-01-30] MEDS: HYDROCODONE/ACET 5/325 TABLET 2 TAB PO (03:33)
[2020-01-30 03:40] VITALS: BP 103/72; PULSE 72; RESP 18; TEMP 36.6; O2SAT 94
[2020-01-30] MEDS: LEVOTHYROXINE 88 MCG TABLET PO (06:00)
[2020-01-30 06:45] LABS: Hematocrit 32.5 % (36-46)
[2020-01-30 07:00] VITALS: BP 112/71; PULSE 75; RESP 16; TEMP 37.1; O2SAT 90
--- NOTE | 2020-01-30 07:32 | PM.PNPO.1 ---
Subjective Subjective Date Patient Seen: 01/30/20 Time Patient Seen: 07:32 Interval history: She was admitted last night as we were unable to maintain her oxygen saturation in the recovery room. She is doing much better today. Good pain control. Exam Vital Signs (past 8 hours): - 01/30/20 00:20 01/30/20 03:40 Temperature 97.5 F L 97.9 F Pulse Rate 82 72 Respiratory Rate 14 18 Blood Pressure 118/73 103/72 Pulse Oximetry 96 94 Oxygen Delivery Method Room Air Oxygen Flow Rate 2 Const Orientation: alert and oriented x3 Back/Spine/Pelvis Other: Moderate dry drainage. 5/5 motor both lower extremities. Objective Labs Result Diagrams: 01/30/20 06:15 Labs: Laboratory Results - last 24 hr 01/30/20 06:15 Hgb 11.0 L Hct 32.5 L PFSH Medical History ADHD Anxiety Asthma BCC (basal cell carcinoma) Bradycardia Chronic back pain Chronic neck pain CKD (chronic kidney disease), stage III Depression Dermatitis Ectopic beats Fragile skin GERD (gastroesophageal reflux disease) Hearing loss Hemorrhoids Hepatitis C HLD (hyperlipidemia) Hypothyroidism Osteoarthritis Rheumatic fever (~194) RLS (restless legs syndrome) SCC (squamous cell carcinoma) (~10/2018) Spinal stenosis Vertigo Surgical History History of arthroplasty of right knee History of carpal tunnel release Hx of abdominal surgery Hx of appendectomy Hx of bilateral cataract extraction Hx of fusion of cervical spine (02/01/19) Hx of hemorrhoidectomy Hx of knee surgery Hx of shoulder surgery 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) Social History household members: spouse Smoking Status: Never smoker alcohol intake: current Assessment & Plan Post-op Postoperative Procedures: Procedures Operation Date: 01/29/20 16:00 Actual Procedures Side Surgeon p L3 Kyphoplasty Braxton Artis MD She is doing well. Plan to discharge home today.
[2020-01-30] MEDS: DOCUSATE 100 MG CAPSULE PO (09:17)
[2020-01-30] MEDS: HYDROCODONE/ACET 5/325 TABLET 1 TAB PO (09:17)
--- NOTE | 2020-01-30 09:20 | PT.IIE ---
Current Diagnoses Low back pain (01/29/20) Age-related osteoporosis with current pathological fracture, unspecified site, initial encounter for fracture (01/29/20) Wedge compression fracture of third lumbar vertebra, initial encounter for closed fracture (01/29/20) Surgery Performed Operation Date: 01/29/20 16:00 Actual Procedures p L3 Kyphoplasty - Braxton Artis MD Surgical History (Last Reviewed 01/29/20 @ 15:33 by Braxton Artis MD) History of arthroplasty of right knee History of carpal tunnel release Hx of abdominal surgery Hx of appendectomy Hx of bilateral cataract extraction Hx of fusion of cervical spine (02/01/19) Hx of hemorrhoidectomy Hx of knee surgery Hx of shoulder surgery 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) Medical History (Last Reviewed 01/29/20 @ 15:33 by Braxton Artis MD) ADHD Anxiety Asthma BCC (basal cell carcinoma) Bradycardia Chronic back pain Chronic neck pain CKD (chronic kidney disease), stage III Depression Dermatitis Ectopic beats Fragile skin GERD (gastroesophageal reflux disease) Hearing loss Hemorrhoids Hepatitis C HLD (hyperlipidemia) Hypothyroidism Osteoarthritis Rheumatic fever (~194) RLS (restless legs syndrome) SCC (squamous cell carcinoma) (~10/2018) Spinal stenosis Vertigo Physical Therapy Inpatient Evaluation/Re-Eval M1 PT/OT-IP Prior Functional Status Start: 01/30/20 12:19 Freq: NEEDED Status: Active Protocol: Document 01/30/20 09:20 AB (Rec: 01/30/20 12:32 AB [id number]) Medical Review Prior Functional Status Medical History Reviewed Yes Communication able to make needs known Mobility and Gait spouse stated that pt is independent with all mobilities and ambulation without AD but occasionally uses a SPC indoors; uses SPC for outdoor mobility Social History Household Members spouse Living Arrangements House Number of Floors (Floors) Two Floors Number of Stairs To Enter/Railing? pt stays on main level of the house has 3 steps with R rail to enter the house Home Environment Standard Height Toilet,Tub/ Shower Home Equipment Front Wheel Walker,Straight Cane,Shower Seat with Backrest ,Hand Held Shower,Grab Bars In Shower Additional Social History Comment has safety frame around th toilet has a transport w/c M2 PT-IP Current Condition Start: 01/30/20 12:19 Freq: NEEDED Status: Active Protocol: Document 01/30/20 09:20 AB (Rec: 01/30/20 12:32 AB [email or web address]) Physical Therapy Current Condition Current Condition Evaluation Date 01/30/20 Treatment Diagnosis s/p L3 kyphoplasty; difficulty in walking Onset Date 01/29/20 Precautions Lumbar Precautions Log Roll,No Twisting,Limit Bending,Lifting Restriction of 10 lbs,Gait Belt above Incisional Area M3 PT-IP Subjective Start: 01/30/20 12:19 Freq: NEEDED Status: Active Protocol: Document 01/30/20 09:20 AB (Rec: 01/30/20 12:32 AB [email or web address]) Subjective Physical Therapy Visit Type Type Initial Evaluation Visit Start Time 09:20 Visit Stop Time 09:52 Notes 32 Number of TREATING AND PUMPING SUPERVISOR Visits 0 Physical Therapy Visit Comments Patient Comments pt is agreeable to do PT; wants to catch the ferry back to home Therapy Pain Assessment Pain When Pain Assessed At Rest Pain Present Pain Present Pain Reported Location back Intensity 5 Scale Used Numeric (0 - 10) Pain Management Techniques Distraction,Modification of Treatment,Re-positioning, Timing of Activity with Medications M4 PT-IP Mobility and Gait Start: 01/30/20 12:19 Freq: NEEDED Status: Active Protocol: Document 01/30/20 09:20 AB (Rec: 01/30/20 12:32 AB [email or web address]) PT-Bed Mobility Assessment Rolling Type of Rolling Log Rolling Level of Assist Moderate Assistance Supine to Sit Supine to Sit Maximum Assistance Sit to Supine Sit to Supine Moderate Assistance PT-Transfer Assessment Sit to and From Stand Sit to and from Stand Contact Guard Assistance Equipment Transfer Assistive Device Gait Belt,Front Wheeled Walker Orthotic/Prosthetic Devices or Brace: No Transfers Transfer Destination Bed,Chair Transfer Technique Stand Step Pivot Transfer Ability Level of Assist Contact Guard Assistance Comments Mobility Comments pt sitting on the chair. educated on back precautions and log roll bed mobility. completed sit to stand CGA and completed step transfer to bed using FWW with cues provided for safety. completed sit to supine mod A for LE elevation. spouse stated that she has been helping pt with bed mobility at home. completed supine to sit max A and max cues. Caregiver nacho conducted. spouse was able to put safety belt on pt. assisted pt with ambulation to the hallway using FWW CGA ~ 100 ft. completed up/down steps using R rail CGA. pt assisted back to her room. ambulated from w/ c to chair ~ 15 ft CGA using FWW. positioned on chair. call light and table within reach. left pt with spouse. informed nurse that pt is cleared to d/c. Gait Assessment Gait Gait Assistance Required: Contact Guard Assist Distance (Feet) 100 Able to Maintain Weight Bearing Status Yes During Gait Assistive Devices Assistive Device Gait Belt,Front Wheeled Walker Orthotic/Prosthetic Devices or Brace: No Gait Deviations General Gait Pattern Antalgic,Decreased Stride Length,Decreased Feet Clearance,Flexed Trunk,Step-to Gait Factors Limiting Gait Function Factors Limiting Gait Function Decreased Activity Tolerance, Decreased Strength,Difficulty Following Directions,Limited Range of Motion,Pain,Poor Balance,Poor Safety Awareness Stair Climbing Assessment Evaluation Level of Assist On Stairs Contact Guard Assistance,1 Person Assistance Devices Stair Climbing Assistive Devices Right Railing Technique/Endurance Stair Climbing Direction Ascend and Descend Stair Climbing Technique Step Over Step Number of Steps Climbed 3 Query Text: Stair Climbing Set # Repetitions (reps) 1 Comments Stair Climbing Comments pt completed using B hands holding on to R rail to assist with stair climbing CGA and cues. PT-Balance Assessment Sitting Balance and Reactions Static Sitting Balance Ability Good Dynamic Sitting Balance Ability Good Standing Balance and Reactions Static Standing Balance Ability Fair Dynamic Standing Balance Ability Fair Device Used FWW M5 PT-IP Objective Assessments Start: 01/30/20 12:19 Freq: NEEDED Status: Active Protocol: Document 01/30/20 09:20 AB (Rec: 01/30/20 12:32 AB [email or web address]) Orientation Orientation/Cognition Orientation Name,Situation Safety Awareness Decreased Safety Awareness Memory Description Short Term Impaired Gross Range of Motion Lower Extremity ROM Assessment Within Functional Limits Strength Lower Extremity Strength Knee 4-/5 M6 PT-IP Treatment Start: 01/30/20 12:19 Freq: NEEDED Status: Active Protocol: Document 01/30/20 09:20 AB (Rec: 01/30/20 12:32 AB [email or web address]) Physical Therapy Treatment Education Education Provided Precautions,Weight Bearing Status,Post-Op Packet,Safety M7 PT-IP Assessment and Plan Start: 01/30/20 12:19 Freq: NEEDED Status: Active Protocol: Document 01/30/20 09:20 AB (Rec: 01/30/20 12:32 AB [email or web address]) PT Summary Assessment and Plan Potential Rehabilitation Potential Good Status of Condition at Evaluation Stable Summary Impairments Pain,ROM,Strength,Balance, Coordination,Sensation,Tone, Cognition,Bed Mobility, Transfers,Gait,Activity Tolerance Assessment Summary pt requiring CGA to max A with mobility but spouse was able to assist pt. spouse stated that she has been assisting pt at home when needed. pt plans to go home today. Goals Bed Mobility Goal Independent Transfer Goal Independent,Front Wheeled Walker Gait Goal Independent,Front Wheel Walker Gait Distance 200 Other Goals up/down 3 steps R rail SBA Days to Meet Goals 3 Frequency of Treatment Frequency Of Treatment Twice a Day Treatment Plan Physical Therapy Treatment Plan Bed Mobility Training,Transfer Training,Gait Training, Therapeutic Exercise,Balance Retraining,Post Op Education, Discharge Planning,Hot or Cold Pack,Neuromuscular Re-ed, Coordination Retraining,Manual Therapy Recommendations To Nursing Amount of Assist Needed 1 Person Assist Discharge Recommendations PT Discharge Recommendations Home with Assistance Transportation Needs at Discharge Private Vehicle
--- NOTE | 2020-01-30 11:15 | PC.NURSE ---
(late entry) from discharge 01/29 left at 955 this morning. Patient cleared by PT, and eager to catch ferry [place] on [address]. Discharge instructions reviewed again with patient and her family. They state understanding and have no new questions or concerns. IV dc'd intact. Dressing remains in place to back. Patient has follow up appointment scheduled and prescription to fill at pharmacy of choice. Patient escorted out via wheelchair with all her belongings by E LEARNING MANAGER to be discharged to home.
--- NOTE | 2020-01-30 12:21 | CM.DANOTE ---
DCP: Case received, EMR reviewed and met with patient. Life partner, Hayley Escobedo, was also at bedside. Was able to obtain information from patient and significant other regarding her baseline activity status at home prior to having surgery. DCP assessment completed with information currently available. Patient is a 79 year old female who admitted yesterday afternoon to the care of the orthopedic team.. PCP: Dr. Rao. Payer: confirmed: Medicare/BSBS Out of [facility]. Patient came to the hospital via private vehicle for a surgical procedure. She had lumber surgery, secondary to a recent fall on the stairs at home resulting an a acute L3 compression fracture. Met with patient and significant other in the room. Patient uses a walker at baseline, since the fall, had been hard to get around. Patient is alert and oriented, she stated that she still drives, as long as she is not on her pain medication. Patient will be working with P.T. Hayley is hoping that patient can get discharged soon, so they can take the ferry. P: Patient is to be discharged home today. She will be working with P.T. before she is discharged. Renetta Jensen RN/Machine Spreader
== END 2020-01-30 09:55 | disposition home or self-care (01) ==
LOC: OR 17:03 → AC 01-30 08:03 → OR 01-30 13:30
PROVIDERS: PCP Family Medicine; Referring Provider Family Medicine; Visit Provider Orthopaedic Surgery
PROC: (CPT 22514; principal; 2020-01-29 16:00)
DX: M80.08XA Age-related osteoporosis with current pathological fracture, vertebra(e), initial encounter for fracture (principal); M54.5 Low back pain; W10.9XXA Fall (on) (from) unspecified stairs and steps, initial encounter; J45.909 Unspecified asthma, uncomplicated; F32.9 Major depressive disorder, single episode, unspecified; Z01.818 Encounter for other preprocedural examination; Z01.812 Encounter for preprocedural laboratory examination
CPT/HCPCS: 22514; 36415; 72110; 76000; 82962; 85014; 85018; 85025; 93005; 93010; 97161; C1776; G0378; A9270; J0690; J1170; J2405; J2704; J3010

== ENCOUNTER → 2020-03-18 12:12 | Outpatient (CLI) | payer MEDICARE, BC, SELFPAY ==
[2020-01-29 19:54] VITALS: BMI 29.8
--- NOTE | 2020-03-18 | DI.MRI.S_ITS ---
PROCEDURE: MR LUMBAR SPINE WO CON INDICATIONS: low back pain TECHNIQUE: Noncontrast sagittal T1 spin echo and T2 fast echo, sagittal STIR, axial T1 and T2 fast spin echo through the lumbar spine. In cases with scoliosis, additional coronal T2 fast spin echo may be performed. COMPARISON: [facility], CR, XR THORACOLUMBAR SPINE 2 VIEWS, 03/13/2020, 14:30. [facility], , MR LUMBAR SPINE WO CON, 01/21/2020, 13:20. FINDINGS: Image quality: Excellent. Alignment and Curvature: Trace retrolisthesis of L1 on L2 and L2 on L3. Trace anterolisthesis of L4 on L5. Bone Marrow: Postsurgical changes related to L3 vertebroplasty. No acute fracture identified. Spinal Cord: Conus medullaris terminates at the L2 level. Visualized cord demonstrates normal signal and size. Paraspinous Soft Tissues: There is nonspecific, dependent posterior subcutaneous soft tissue edema from level of L2-sacrum T12-L1: No canal or foraminal stenosis. L1-L2: Mild canal narrowing. Partial effacement of both lateral recesses with bilaterally symmetric appearance. Mild right foraminal stenosis. Moderate left foraminal narrowing. No interval change L2-L3: Mild canal narrowing which is slightly progressed. Partial effacement of both lateral recesses with bilaterally symmetric appearance. Mild bilateral foraminal stenoses. No interval change. L3-L4: Mild canal narrowing. Lateral recesses appear grossly patent. Mild left foraminal stenosis. No definite right foraminal narrowing. No interval change L4-L5: Moderate canal stenosis. Partial effacement of both lateral recesses with bilaterally symmetric appearance. Mild left foraminal narrowing. Mild right foraminal stenosis with slight nerve root compression image 5/3. Overall, grossly unchanged appearance. L5-S1: No canal or lateral recess narrowing. Mild bilateral foraminal narrowing. No interval change IMPRESSION: Status post L3 vertebroplasty otherwise, no interval change since 01/21/20, as detailed above by spinal level. Multilevel spondylolisthesis as above. Dictated by: Gil Meredith M.D. on 03/18/2020 at 14:38 Approved by: Gil Meredith M.D. on 03/18/2020 at 14:46
--- NOTE | 2020-03-18 | DI.MRI.S_ITS ---
PROCEDURE: MR THORACIC SPINE WO CON INDICATIONS: mid back pain TECHNIQUE: Noncontrast sagittal T1 spine echo and T2 fast spin echo, sagittal STIR, axial T1 and T2 fast spin echo through the thoracic spine. COMPARISON: None. FINDINGS: Image quality: Excellent. Alignment and Curvature: There is normal bony alignment. Bone Marrow: No fracture. Multilevel degenerative endplate sclerosis and spurring. Diffuse facet arthropathy. Scattered small Schmorl's nodes. Spinal Cord: Visualized spinal cord is normal in size and signal. Paraspinous Soft Tissues: No paravertebral masses. Miscellaneous: On axial images, central canal and foramina appear widely patent at all scanned levels. IMPRESSION: Diffuse spondylitic and degenerative changes. Facet arthropathy No fracture. Dictated by: Gil Meredith M.D. on 03/18/2020 at 14:30 Approved by: Gil Meredith M.D. on 03/18/2020 at 14:38
== END ==
PROVIDERS: PCP Family Medicine; Referring Provider Orthopaedic Surgery; Visit Provider Orthopaedic Surgery
DX: M54.5 Low back pain (principal); M54.6 Pain in thoracic spine; M47.814 Spondylosis without myelopathy or radiculopathy, thoracic region; M43.16 Spondylolisthesis, lumbar region
CPT/HCPCS: 72146; 72148

== ENCOUNTER → 2020-12-28 14:47 | Outpatient (CLI) | payer MEDICARE, BC, SELFPAY ==
[2020-01-29 19:54] VITALS: BMI 29.8
[2020-12-28 15:18] LABS: Add Manual Diff / Slide Review NO; Basophils Absolute Auto 100 /uL (0-100); Eosinophils Absolute Auto 200 /uL (0-450); Eosinophils Percent Auto 3.7 % (2-4); Hematocrit 35.7 % (36-46); Hemoglobin 12.3 g/dL (12.0-16.0); Lymphocytes Absolute Auto 1500 /uL (1100-4500); Lymphocytes Percent Auto 26.1 % (25-40); Mean Corpuscular HGB Conc 34.4 % (30-36); Mean Corpuscular Hemoglobin 33.3 PG (26-34); Mean Corpuscular Volume 96.9 fL (80-100); Monocytes Absolute Auto 300 /uL (0-900); Monocytes Percent Auto 4.8 % (3-14); Neutrophils Absolute Auto 3800 /uL (1500-7000); Neutrophils Percent Auto 64.4 % (50-75); Platelet Count 180 X10^3/uL (150-400); Red Blood Cell Count 3.68 X10^6/uL (4.0-5.2); Red Cell Distribution Width 13.3 % (11.6-14.8); White Blood Cell Count 5.9 X10^3/uL (4.5-11.0)
[2020-12-28 15:23] LABS: Hemoglobin A1C% w Est Avg Glu 5.1 % (4.0-6.0)
[2020-12-28 15:32] LABS: BUN Creatinine Ratio 16.7 (6-22); Blood Urea Nitrogen 22 mg/dL (7-17); Calcium 9.2 mg/dL (8.4-10.2); Carbon Dioxide 27 mmol/L (22-32); Chloride 108 mmol/L (98-107); Estimated Glomerular Filt Rate 38.7 mL/min (>60); Glucose 126 mg/dL (80-110); HEMOLYSIS < 15 (0-50); Potassium 3.7 mmol/L (3.4-5.1); Sodium 142 mmol/L (137-145)
== END ==
PROVIDERS: PCP Family Medicine; Referring Provider Orthopaedic Surgery Orthopaedic Surgery of the Spine; Visit Provider Orthopaedic Surgery Orthopaedic Surgery of the Spine
DX: Z01.818 Encounter for other preprocedural examination (principal); R73.9 Hyperglycemia, unspecified; Z01.812 Encounter for preprocedural laboratory examination
CPT/HCPCS: 36415; 80048; 83036; 85025; 93005; 93010

== ENCOUNTER → 2021-01-11 13:09 | Outpatient (CLI) | payer MEDICARE, BC, SELFPAY ==
[2020-01-29 19:54] VITALS: BMI 29.8
[2021-01-11 16:30] LABS: COVID19 -Nasal RAPID Negative (Negative)
== END ==
PROVIDERS: PCP Family Medicine; Visit Provider Nurse Practitioner Family
DX: Z20.822 Contact with and (suspected) exposure to COVID-19 (principal)
CPT/HCPCS: 87635; C9803

== ENCOUNTER 2021-01-13 06:10 | Inpatient (IN) | payer MEDICARE, BC, SELFPAY ==
[2020-01-29 19:54] VITALS: BMI 29.8
[2021-01-04 13:00] VITALS: BMI 30.2
[2021-01-13] VITALS (22 sets, daily range): BP systolic 114–157; BP diastolic 52–79; PULSE 64–89; RESP 12–20; TEMP 36.3–37.1; O2SAT 91–98; BMI 29.6
--- NOTE | 2021-01-13 | DI.RAD.S_ITS ---
PROCEDURE: XR LUMBAR SPINE 2-3V INDICATIONS: L4-5 TLIF TECHNIQUE: 2 spot fluoroscopic intraoperative views of the lumbar spine were acquired. COMPARISON: [facility], , XR LUMBAR SPINE MIN 4V, 01/29/2020, 16:45. FINDINGS: Spot fluoroscopic images demonstrating L4-L5 posterior spinal fixation and interbody cage graft. There is also L3 vertebroplasty. Dictated by: Gil Meredith M.D. on 01/13/2021 at 10:57 Approved by: Gil Meredith M.D. on 01/13/2021 at 10:58
[2021-01-13] MEDS: LACTATED RINGERS 1,000 ML 42 ML IV ×2 (07:06→10:08)
[2021-01-13] MEDS: ACETAMINOPHEN 325 MG TABLET 975 MG PO (07:07)
[2021-01-13] MEDS: GABAPENTIN 300 MG CAPSULE PO (07:07)
--- NOTE | 2021-01-13 07:40 | PM.PREOP ---
Pre-operative Note COVID-19 COVID-19 status: Negative Result date/Date tested (Pos, Neg/Pending): 01/11/21 Interval Note History & Physical reviewed/Exam performed by Physician: Yes Changes to H&P: No
[2021-01-13] MEDS: CEFAZOLIN 2 GM/20 ML SYRINGE IV ×2 (08:00→08:34)
[2021-01-13] MEDS: BUPIVACAINE 0.25% (PF) 30 ML, EPINEPHrine 0.3 MG INJ (08:35)
[2021-01-13] MEDS: BUPIVACAINE LIPOSOME 266 MG/20 ML VIAL INJ (08:35)
--- NOTE | 2021-01-13 10:36 | PM.OP.1 ---
Operative Date/Time/Diagnoses Date of procedure: 01/13/21 Time of procedure: 07:45 Pre-op diagnosis: 1. L4-5 spinal stenosis with neurogenic claudication 2. L4-5 spondylolisthesis Post-op diagnosis: same Procedure & Clinicians Procedure: 1. L4-5 Postero-lateral and posterior interbody fusion 2. L4-5 interbody cage placement. 3. L4-5 decompressive laminectomy with bilateral facetecomies 4. L4-5 Posterior non-segmental instrumentation 5. Crosby of bone marrow from iliac crest 6. Utilization of microsurgical technique and operating microscope Same procedure as scheduled: Yes Indications: Patient has been having chronic back pain and worsening lumbar radiculopathy. Patient failed multiple conservative management with worsening pain weakness and numbness in her lower extremity. Patient has been having difficulty performing activity of daily living. After discussing risks benefits of treatment options, patient elected proceed with surgery. Surgeon: Jeff Honr Surgical Manager: Cash Hogue Click Yes if Unassisted: No Anesthesia Type: General Operative Notes Closure Type: primary Specimen(s): none sent Prosthetic devices, grafts, tissues, transplants, or devices: Globus revolve screws, Rise cage Estimated Blood Loss (mL): 50 Blood products transfused: none Procedure in detail: Patient was seen in the preoperative area. Risks and benefits of the surgery was discussed with the patient. Informed consent was obtained from the patient and placed in the chart. Surgical site was marked. Patient was taken to the operative room. General anesthesia was administered. Prophylactic antibiotic was given to the patient less than 30 min before the incision was made. Patient was placed into a prone position on the Dawson table. Patient's back was then prepped and draped in the sterile fashion. Time-out was performed at this time. Using AP and lateral C-arm imaging the interval between L4-5 was identified and marked on patient's back. A 2 inch incision 2 in from midline was made on the left side first. The fascia was incised in line with skin incision. Globus MARS retractors was placed inside the incision and docked onto the L4 lamina. Using microsurgical technique and operating microscope, a L4 laminectomy and L4-5 facetectomy was performed using a Kerrison rongeur. Patient was found have severe central and neural foramen stenosis at the L4-5 level. The stenosis was fully decompressed after the laminectomy and facetectomy was completed. The disc space at L4-5 was identified. And a total diskectomy was performed at L4-5 level. The endplates were decorticated using a rasp and shaver. The total diskectomy and decortication was performed at L4-5 level in order to to accomplish a L4-5 fusion. The local bone from the laminectomy and facetectomy was saved for local bone grafting. After the total diskectomy and decortication was completed, Trifecta bone graft material was combined with local bone that was harvested earlier. At this time, a separate skin is incision was made over the iliac crest. A Jamshidi needle was inserted into the iliac crest through a separate skin incision. 5 cc of bone marrow aspiration was obtained through the separate skin incision using a Jamshidi needle from the iliac crest. The bone marrow aspiration was combined with local bone and the Trifecta bone grafting material. The bone grafting material was placed into the L4-5 interbody space along with a expandable cage. The cage was expanded to its maximum height using the torque limiting screwdriver. At this time a mirror image incision was made on the right side. The fascia was incised in line with the skin incision. Globus MARS retractor was inserted and docked onto the L4-5 posterolateral gutter. Using the power drill, posterior-lateral decortication was performed at L4-5 level until bleeding cortical bone was identified. The remaining bone grafting material was placed into the L4-5 posterior lateral gutter he order to accomplish posterolateral fusion at the L4-5 level. Using the double C-arm technique, pedicle screws were placed into the L4-5 pedicles bilaterally. This was done by placing the Jamshidi needle into the pedicles, then placing the guidewires over the Jamshidi needle, and finally placing the cannulated screws over the guidewires bilaterally. After the pedicle screws were placed, 2 titanium rods was locked into the heads of the pedicle screws using locking caps and torque limiting screwdriver. After all the hardware was placed, and confirmed with AP and lateral C-arm imaging, the wound was then irrigated with sterile normal saline and packed with Ray-Chio gauze for 3 min to accomplish hemostasis. After the gauze was removed the deep fascia was closed with #1 Vicryl suture. The subcutaneous layer was closed with 2-0 Vicryl. The skin was closed with skin jorge. Patient tolerated the procedure well. There were no complications. Complications: none Post-operative Condition: stable Disposition: PACU Plan for aftercare: Admit to inpatient hospital
--- NOTE | 2021-01-13 11:22 | SUR.PHASEI ---
1120 hrs: Pt Awakens to voice, falls quickly back to sleep. Has a history of somnolence following anesthesia. Neuro checks withheld until patient more responsive.
--- NOTE | 2021-01-13 12:03 | SUR.PHASEI ---
Assumed care for lunch break, pt turned to left side with assistance. Dressing to back remains c/d/i.
--- NOTE | 2021-01-13 12:45 | SUR.PHASEI ---
Pt transported to room 212 by RN's. Bedside report to SAEED Beatty.
[2021-01-13] MEDS: SODIUM CHLORIDE 0.9% 1,000 ML 100 ML IV (13:59)
--- NOTE | 2021-01-13 14:39 | PC.NURSE ---
Dayshift admit: Received patient to room 212 from PACU accompanied by Karl TIPTON. Coversite dressing to mid lower back, CDI. IVF and SCDs initiated on arrival. Received on O2 at 2L via NC, sats 94 - 96%. VSS and afebrile. Alert and oriented, drowsiness noted, however arouses easily to voice. Hoarseness noted, improving. No difficulty with sips of water. Oriented to room, environment, and plan of care. Hayley (spouse) providing supportive care. High fall risk precautions maintained, call light within reach.
--- NOTE | 2021-01-13 15:57 | PT-IP ANOTE ---
PT tremaineal received and pt just had back surgery this morning. checked with [facility] and stated that pt is very lethargic to do PT. stated that pt cannot stay awake when she asked her questions. will f/u tomorrow.
[2021-01-13] MEDS: CEFAZOLIN 1 GM VIAL IV ×2 (16:42→23:17)
[2021-01-13] MEDS: OXYCODONE IR 5 MG TABLET PO ×2 (18:14→21:03)
[2021-01-13] MEDS: SERTRALINE 50 MG TABLET 150 MG PO (21:02)
[2021-01-13] MEDS: PANTOPRAZOLE DR 40 MG TABLET PO (21:02)
[2021-01-13] MEDS: ATORVASTATIN 20 MG TABLET PO (21:02)
[2021-01-13] MEDS: BUSPIRONE 5 MG TABLET 30 MG PO (21:02)
[2021-01-13] MEDS: hydrOXYzine pamoate 25 MG CAPSULE PO (21:03)
[2021-01-13] MEDS: DOCUSATE 100 MG CAPSULE PO (21:03)
[2021-01-13] MEDS: SENNOSIDES 8.6 MG TABLET 17.2 MG PO (21:03)
[2021-01-14 00:04] VITALS: BP 119/49; PULSE 76; RESP 18; TEMP 36.9; O2SAT 95
[2021-01-14] MEDS: LORazepam 0.5 MG TABLET 0.25 MG PO (00:22)
--- NOTE | 2021-01-14 00:40 | PC.NURSE ---
Pt resting on her right side with ice pack to back. Stated she needed to get up to void. Pt logrolled up to side of bed and was assisted to the br using fww. Pt incontinent of urine. Cleaned up urine and Pt and changed socks, applied brief. Pt back dsg was partially dislodged so replaced that as well. Rahul intact with bruising around incision site. Pt very weak when returning to bed from the bathroom to the chair and then in bed. Pt now resting in bed with bed alarm on. Denies needs at this time.
[2021-01-14 05:48] LABS: Hematocrit 30.3 % (36-46); Hemoglobin 10.3 g/dL (12.0-16.0)
[2021-01-14 06:00] VITALS: BP 139/64; PULSE 73; RESP 16; TEMP 36.8; O2SAT 94
[2021-01-14] MEDS: LEVOTHYROXINE 88 MCG TABLET PO (06:01)
[2021-01-14] MEDS: hydrOXYzine pamoate 25 MG CAPSULE PO (07:45)
[2021-01-14] MEDS: OXYCODONE IR 5 MG TABLET PO (07:45)
[2021-01-14] MEDS: ACETAMINOPHEN 325 MG TABLET 650 MG PO ×3 (07:45→21:27)
[2021-01-14 08:05] VITALS: BP 129/50; PULSE 75; RESP 20; TEMP 36.7; O2SAT 92
[2021-01-14] MEDS: DOCUSATE 100 MG CAPSULE PO ×2 (09:27→21:25)
--- NOTE | 2021-01-14 10:34 | PT.IIE ---
Current Diagnoses Spondylolisthesis, lumbar region (01/13/21) Spinal stenosis, lumbar region with neurogenic claudication (01/13/21) Surgery Performed Operation Date: 01/13/21 07:45 Actual Procedures p L2-3 hemilaminectomy, L4-5 TLIF with posterior instrumentation, Transforminal Interbody Fusion(Not Applicable) - Jeff Horn MD Medical History (Last Reviewed 01/29/20 @ 15:33 by Braxton Artis MD) ADHD Anxiety Asthma BCC (basal cell carcinoma) Bradycardia Chronic back pain Chronic neck pain CKD (chronic kidney disease), stage III Depression Dermatitis Ectopic beats Fragile skin GERD (gastroesophageal reflux disease) Hearing loss Hemorrhoids Hepatitis C HLD (hyperlipidemia) Hypothyroidism Osteoarthritis Rheumatic fever (~194) RLS (restless legs syndrome) SCC (squamous cell carcinoma) (~10/2018) Spinal stenosis Vertigo Physical Therapy Inpatient Evaluation/Re-Eval M1 PT/OT-IP Prior Functional Status Start: 01/14/21 08:31 Freq: Status: Active Protocol: Document 01/14/21 09:40 MB (Rec: 01/14/21 10:34 MB [id number]) Medical Review Prior Functional Status Medical History Reviewed Yes Diet/Fluid Consistency Regular Communication WNLs Mobility and Gait Gait trains mostly with SPC, has a RW Activities of Daily Living and IADL's Mostly I, helps as needed Prior Functional Level (Other details) Mostly I, helps as needed Social History Household Members spouse Living Arrangements House Number of Floors (Floors) One Floor Number of Stairs To Enter/Railing? 2 steps to enter and no rail, , Hayley, usually holds onto patient Home Environment Standard Height Toilet Home Equipment Front Wheel Walker,Straight Cane,Manual Wheelchair Employment Status Retired Additional Social History Comment Hayley, assists patient and states that she can hire more help for pt as needed at home M2 PT-IP Current Condition Start: 01/14/21 08:31 Freq: Status: Active Protocol: Document 01/14/21 09:40 MB (Rec: 01/14/21 10:34 MB [id number]) Physical Therapy Current Condition Current Condition Evaluation Date 01/14/21 Treatment Diagnosis Decreased mobility s/p TLIF Onset Date 01/13/2021 M3 PT-IP Subjective Start: 01/14/21 08:31 Freq: Status: Active Protocol: Document 01/14/21 09:40 MB (Rec: 01/14/21 10:34 MB [id number]) Subjective Physical Therapy Visit Type Type Initial Evaluation Visit Start Time 09:40 Visit Stop Time 10:14 Total Visit Minutes 34 Number of SPOOLER Visits 0 Physical Therapy Visit Comments Patient Comments Pt is very lethargic, answers occasional questions, no spontaneous conversation or requests Patient Goals , Hayley, would like for pt to be able to go home if she is mobile enough at time of d/c Therapy Pain Assessment Pain When Pain Assessed At Rest Pain Present Pain Present Pain Reported Location back Intensity 1 Scale Used Meredith-Bobo (Faces) Pain Management Techniques Modification of Treatment,Re- positioning M4 PT-IP Mobility and Gait Start: 01/14/21 08:31 Freq: Status: Active Protocol: Document 01/14/21 09:40 MB (Rec: 01/14/21 10:34 MB [id number]) PT-Bed Mobility Assessment Rolling Type of Rolling Log Rolling,Roll to Left Level of Assist Moderate Assistance,1 Person Assistance Supine to Sit Supine to Sit Maximum Assistance,1 Person Assistance,Head of Bed Elevated,Bedrails Scooting Scooting to Edge of Bed Maximum Assistance PT-Transfer Assessment Sit to and From Stand Sit to and from Stand Moderate Assistance,1 Person Assistance,Use of Upper Extremities Equipment Transfer Assistive Device Gait Belt Orthotic/Prosthetic Devices or Brace: No Transfers Transfer Destination Bedside Commode Transfer Technique Stand Step Pivot Transfer Ability Level of Assist Minimal Assistance,2 Person Assistance Comments Mobility Comments First sit to stand and transfer from bed to BSC on the right: PT in front and providing cues and light assist at gait belt and cues for pt's hand placement and reaching for the commode: she tends to reach for bed and then chair to left with left hand rather than to BSC with both hands. She does reach right hand back. Very slow movement to sitting on commode and pt hovers with UE support for several seconds before sitting. Commode is high for pt. She is lethargic, has trouble keeping eyes open and looking up. Forward, flexed, posture. behind holding commode as PT assists with the transfer. PT manages adult diaper. Manual assist is min to mod and pt most requiring cues for transfer with lethargy being the biggest barrier. For transfer from BSC to chair to the right: YARD SPOTTER assists with hygiene after max assist to don adult diaper around feet. PT assist with standing: PT in front of pt and pt holding onto commode and PT supporting at gait belt. Cues for pt to look up and then to hold onto PT's forearm and this assists with standing upright. Pt is then able to take several steps to the right to quarter turn to chair with cues to back up to chair and she naturally does this and reaches back for the chair with right hand. Left up in chair with YARD SPOTTER and nearby , call reyes nearby. Gait Assessment Gait Gait Assistance Required: Minimum Assistance,2 Person Assist Distance (Feet) 1 Able to Maintain Weight Bearing Status Yes During Gait Assistive Devices Assistive Device Gait Belt Orthotic/Prosthetic Devices or Brace: No Gait Deviations General Gait Pattern Antalgic,Decreased Stride Length,Decreased Feet Clearance,Flexed Trunk,Wide Based Gait Factors Limiting Gait Function Factors Limiting Gait Function Decreased Activity Tolerance, Decreased Strength,Difficulty Following Directions,Limited Range of Motion,Pain,Poor Balance,Poor Safety Awareness Comments Gait Comments 6 small steps to the right from BSC to chair with description above: PT in front and pt holding gently onto PT 's forearms and YARD SPOTTER behind and gently giving verbal cues and light cue for hips PT-Balance Assessment Sitting Balance and Reactions Static Sitting Balance Ability Fair Dynamic Sitting Balance Ability Fair Standing Balance and Reactions Static Standing Balance Ability Poor Dynamic Standing Balance Ability Poor M5 PT-IP Objective Assessments Start: 01/14/21 08:31 Freq: Status: Active Protocol: Document 01/14/21 09:40 MB (Rec: 01/14/21 10:34 MB [id number]) Orientation Orientation/Cognition Level of Alertness Lethargic Orientation Name,Birthday Safety Awareness Decreased Safety Awareness Memory Description Short Term Impaired Comments Pt is very lethargic after pain medication this morning. Gross Range of Motion Upper Extremity ROM Impairments All range and MMT limited d/t lethargy Strength Comments Strength Comments Pt is able to perform full range LAQ B sitting as well as full DF and great toe extension. With PT pushing for MMT, right knee extension and DF is weaker than the left Sensation Assessment Comments Sensation Comments Cannot test d/t lethargy this a.m. M6 PT-IP Treatment Start: 01/14/21 08:31 Freq: Status: Active Protocol: Document 01/14/21 09:40 MB (Rec: 01/14/21 10:34 MB [id number]) Physical Therapy Treatment Education Education Provided Precautions,Post-Op Packet, Safety Brace Education Patient,Caregiver Other Treatments Other Treatment Performed Provided back booklet, posted precautions over board, ed spouse in back precautions and log roll and PT does talk pt through this with bed mobility today. M7 PT-IP Assessment and Plan Start: 01/14/21 08:31 Freq: Status: Active Protocol: Document 01/14/21 09:40 MB (Rec: 01/14/21 10:34 MB [id number]) PT Summary Assessment and Plan Potential Rehabilitation Potential Fair Status of Condition at Evaluation Evolving Summary Impairments Pain,ROM,Strength,Balance, Cognition,Bed Mobility, Transfers,Gait,Activity Tolerance Assessment Summary Pt is an 80 y/o female who is 1 day post-op TLIF. She has a history of cervical fusion and B TKRs and her states that she did not respond well to anesthesia after previous surgeries either. She is lethargic and confused today and this limits mobility on assessment. PT is hopeful that she will mobilize better when her medication is better managed. Pain does not limit PT this morning. She currently requires +1-2 manual assist for mobility and this is too much for her spouse to manage at home. Will initially recommend SNF for skilled rehab and 24 hour assist with hopes that she will improve with mobility during acute care stay. Goals Bed Mobility Goal Independent Transfer Goal Standby Assistance Gait Goal Standby Assistance Gait Distance 100 Other Goals Pt will ascend and descend 2 steps with RW and CGA to allow safe home entry at d/c. Frequency of Treatment Frequency Of Treatment Twice a Day Treatment Plan Physical Therapy Treatment Plan Bed Mobility Training,Transfer Training,Gait Training, Therapeutic Exercise,Balance Retraining,Post Op Education, Discharge Planning,Hot or Cold Pack,Neuromuscular Re-ed, Coordination Retraining,Manual Therapy Precautions Lumbar Precautions Log Roll,No Twisting,Limit Bending,Lifting Restriction of 10 lbs,Gait Belt above Incisional Area Recommendations To Nursing Amount of Assist Needed 2 Person Assist Discharge Recommendations PT Discharge Recommendations SNF Rehab Transportation Needs at Discharge Wheelchair/Cabulance
--- NOTE | 2021-01-14 10:49 | PM.PNPO.1 ---
Subjective Subjective Date Patient Seen: 01/14/21 Time Patient Seen: 10:49 Interval history: Postop day [address] L4-[address] Horn. Patient is quite lethargic this morning. Over narcotized. Seems very sensitive to pain medication. Family Member and therapy in the room. Apparently patient had poor controlled pain last night and is now having residual affects from over medication in the morning Exam Vital Signs (past 8 hours): - 01/14/21 06:00 01/14/21 08:05 Temperature 98.2 F 98.1 F Pulse Rate 73 75 Respiratory Rate 16 20 Blood Pressure 139/64 129/50 L Pulse Oximetry 94 92 Oxygen Delivery Method Nasal Cannula Oxygen Flow Rate 0 Narrative Exam Narrative: Lying in bed lethargic this morning. Does demonstrate dorsiflexion plantar flexion of bilateral lower extremities. No pain complaint but not able to affectively work with therapy this morning Objective Labs Result Diagrams: 01/14/21 05:30 Labs: Laboratory Results - last 24 hr 01/14/21 05:30 Hgb 10.3 L Hct 30.3 L PFSH Medical History (Updated 03/26/20 @ 07:24 by [employer] Id) ADHD Anxiety Asthma BCC (basal cell carcinoma) Bradycardia Chronic back pain Chronic neck pain CKD (chronic kidney disease), stage III Depression Dermatitis Ectopic beats Fragile skin GERD (gastroesophageal reflux disease) Hearing loss Hemorrhoids Hepatitis C HLD (hyperlipidemia) Hypothyroidism Osteoarthritis Rheumatic fever (~194) RLS (restless legs syndrome) SCC (squamous cell carcinoma) (~10/2018) Spinal stenosis Vertigo Surgical History (Updated 01/04/21 @ 13:24 by Sarah Duff RN) History of arthroplasty of right knee History of carpal tunnel release Hx of abdominal surgery Hx of appendectomy Hx of bilateral cataract extraction Hx of fusion of cervical spine (02/01/19) Hx of hemorrhoidectomy Hx of knee surgery Hx of kyphoplasty (01/29/20) Hx of shoulder surgery 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) Social History household members: spouse Smoking Status: Never smoker alcohol intake: current Assessment & Plan Post-op Postoperative Procedures: Procedures Operation Date: 01/13/21 07:45 Actual Procedure Side Surgeon p L2-3 hemilaminectomy, L4-5 TLIF with posterior instrumentation, Transforminal Interbody Fusion Not Applicable Jeff Horn MD Postoperative day: 1 Postoperative status narrative: Lethargic overmedicated this morning had poor pain control last night. Vital signs stable Postoperative plan narrative: Change pain medications. Will go down to 2.5 mg of oxycodone and then focus on Tylenol as the primary pain medication. Will need to work on therapy later when more alert Time Spent With Patient Time with patient: less than 15 minutes Quality VTE Deep Vein Thrombosis/Pulmonary Embolism Present on Admission: No
[2021-01-14 12:55] VITALS: BP 133/42; PULSE 80; RESP 18; TEMP 37.1; O2SAT 92
--- NOTE | 2021-01-14 13:47 | CM.IDA ---
Initial DCP Assessment Note Patient is an 80 yo female, resident of [place]. POD#1 from TLIF w/ Dr Horn PCP: Gabriele Rao payer: MARY/ZULEYMA Sepulveda Reviewed chart. Attempted assessment and patient working w/physical therapy. Patient lives at home w/spouse Hayley who assists as needed, patient mostly indp. at baseline. Initial PT eval indicates patient is quite lethargic today, unable to participate in eval today; currently SNF is recommended. Patient and spouse are hopeful patient can return to their [place] home before return to their home on [place]. PT eval note indicates spouse able to pay privately for assist as needed. CM team will follow closely; will attempt bedside assessment of need POD#2 after additional therapy eval NAOMI Rodriguez Discharge Planning/Care Management Advanced directive, confirm from FAMILY Start: 01/13/21 13:10 Freq: Q24H Status: Active Protocol: Document 01/13/21 13:10 EM (Rec: 01/13/21 13:11 EM [id number]) Advance Directive, confirm on record Time 13:11 Person contacted Hayley Copy received No CM Discharge Assessment Start: 01/14/21 13:41 Freq: Status: Active Protocol: Document 01/14/21 13:41 JW (Rec: 01/14/21 13:46 JW [id number]) Discharge Planning Assessment Assigned Crm System Administrator NAOMI Clark DPOA/Assigned Designee Name Hayley Escobedo, spouse Contact Information [phone] Advance Directives? Yes Advance Directives on File No History Provided By Medical Record Prior Living Arrangements House Household Members spouse Type of transporation used prior to Relies on Others admit Independent with ADL's Yes: Mostly, assists as needed Is patient alert and oriented? Yes: Mostly, some [place] Needs Assistance With Meal Prep,Managing Medications ,Home Chores / Shopping Barriers to Discharge Yes Comment See Narrative
[2021-01-14] MEDS: OXYCODONE IR 5 MG TABLET 2.5 MG PO (14:14)
--- NOTE | 2021-01-14 16:42 | PT.IPTN ---
Current Diagnoses Spondylolisthesis, lumbar region (01/13/21) Spinal stenosis, lumbar region with neurogenic claudication (01/13/21) Surgery Performed Operation Date: 01/13/21 07:45 Actual Procedures p L2-3 hemilaminectomy, L4-5 TLIF with posterior instrumentation, Transforminal Interbody Fusion(Not Applicable) - Jeff Horn MD Physical Therapy Treatment Note M2 PT-IP Current Condition Start: 01/14/21 08:31 Freq: Status: Active Protocol: Document 01/14/21 09:40 MB (Rec: 01/14/21 10:34 MB [id number]) Physical Therapy Current Condition Current Condition Evaluation Date 01/14/21 Treatment Diagnosis Decreased mobility s/p TLIF Onset Date 01/13/2021 M3 PT-IP Subjective Start: 01/14/21 08:31 Freq: Status: Active Protocol: Document 01/14/21 15:15 ER (Rec: 01/14/21 16:32 ER [id number]) Subjective Physical Therapy Visit Type Type Treatment Note Visit Start Time 15:15 Visit Stop Time 15:54 Total Visit Minutes 39 Notes BENNIE Keita lead treatment and provided education under direct supervision and instruction of CONDUCTOR/ENGINEER Beth. Number of CONDUCTOR/ENGINEER Visits 1 Physical Therapy Visit Comments Patient Comments Pt remains very lethargic, answers occasional questions, no spontaneous conversation or requests Patient Goals , Hayley, would like for pt to be able to go home if she is mobile enough at time of d/c Therapy Pain Assessment Pain When Pain Assessed During Mobility Pain Present Pain Present Pain Reported Location back Pain Behaviors Facial Grimacing,Restlessness, Wincing Pain Management Techniques Modification of Treatment,Re- positioning,Timing of Activity with Medications M4 PT-IP Mobility and Gait Start: 01/14/21 08:31 Freq: Status: Active Protocol: Document 01/14/21 15:15 ER (Rec: 01/14/21 16:32 ER [id number]) PT-Bed Mobility Assessment Rolling Type of Rolling Roll to Left Level of Assist Maximal Assistance,2 Person Assistance Sit to Supine Sit to Supine Maximum Assistance,2 Person Assistance Scooting Scooting to Edge of Bed Dependent PT-Transfer Assessment Sit to and From Stand Sit to and from Stand Maximum Assistance,2 Person Assistance,Use of Upper Extremities Equipment Transfer Assistive Device Gait Belt Orthotic/Prosthetic Devices or Brace: No Transfers Transfer Destination Bed,Bedside Commode Transfer Technique Stand Step Pivot Transfer Ability Level of Assist Maximum Assistance,2 Person Assistance Comments Mobility Comments Pt sitting in chair upon arrival and very lethargic. Vitals: Sitting: BP 130/62, HR 78, SaO2 93%. Pt sit>stand using FWW and UE support with maxA+2 and verbal and tactile cues for hand placement, forward scoot, foot placement under COG, erect posture upon standing. Pt step pivot transferred [place] [facility] [place] FWW with MaxA+2 with repeated tactile and verbal cues for foot placement, stepping. Pt voided during transfer, wetting gown, floor, and socks . Pt stand>sit using FWW with maxA+2, plus MESA GRANDE and verbal cues for hand placement, cues for slow descent. Therapists performed initial clean of floor and change of garments with Pt on [facility] [place] CGA to maintain position. Nursing called to assist with pericare . Pt sit>stand using FWW, UE support, with maxA+2 and MESA GRANDE and verbal cues for hand placement, foot placement, and coming to erect posture. Pt remained in standing using FWW with maxA+2 from therapists while nursing performed pericare and put pull-up brief on Pt. Pt stand pivot transfer to bed using FWW with maxA+2 plus continual tactile and verbal cues for lateral stepping, then backing toward EOB. Pt stand>sit using FWW and UE support with maxA+2 plus cues for hand placement, bending knees, and sitting. Pt dependent scooted back on bed with therapists using bed pad . Pt sit>sidelying with UE support and maxA+2 with MESA GRANDE and verbal cues for leaning over onto elbow, and arm placement. Pt logroll to R with maxA+2 and cues for non- segmental movement. Pt expressed significant pain positioning in bed. Pt left in bed with knees supported and HOB elevated to ~15 degrees. Call light left in hand, bed alarmed and personal needs within arms reach. , Hayley present throughout treatment. Gait Assessment Comments Gait Comments No gait at this time, tranfers only. PT-Balance Assessment Sitting Balance and Reactions Static Sitting Balance Ability Poor Dynamic Sitting Balance Ability Poor Standing Balance and Reactions Static Standing Balance Ability Poor Dynamic Standing Balance Ability Poor Device Used FWW M5 PT-IP Objective Assessments Start: 01/14/21 08:31 Freq: Status: Active Protocol: Document 01/14/21 09:40 MB (Rec: 01/14/21 10:34 MB [id number]) Orientation Orientation/Cognition Level of Alertness Lethargic Orientation Name,Birthday Safety Awareness Decreased Safety Awareness Memory Description Short Term Impaired Comments Pt is very lethargic after pain medication this morning. Gross Range of Motion Upper Extremity ROM Impairments All range and MMT limited d/t lethargy Strength Comments Strength Comments Pt is able to perform full range LAQ B sitting as well as full DF and great toe extension. With PT pushing for MMT, right knee extension and DF is weaker than the left Sensation Assessment Comments Sensation Comments Cannot test d/t lethargy this a.m. M6 PT-IP Treatment Start: 01/14/21 08:31 Freq: Status: Active Protocol: Document 01/14/21 15:15 ER (Rec: 01/14/21 16:32 ER [id number]) Physical Therapy Treatment Education Education Provided Precautions,Post-Op Packet, Safety Brace Education Patient,Caregiver M7 PT-IP Assessment and Plan Start: 01/14/21 08:31 Freq: Status: Active Protocol: Document 01/14/21 15:15 ER (Rec: 01/14/21 16:32 ER [id number]) PT Summary Assessment and Plan Potential Rehabilitation Potential Fair Status of Condition at Evaluation Evolving Summary Impairments Pain,ROM,Strength,Balance, Cognition,Bed Mobility, Transfers,Gait,Activity Tolerance Progress Towards Goals Progressing Toward Goals,Slow Progress due to Activity Tolerance,Slow Progress - Other Assessment Summary Pt is maxA+2 for most mobility w/ FWW at this time due to poor strength, safety awareness, ability to follow directions, and pain. , Hayley, stated that Pt has had several surgeries and has a hard time coming out of anesthesia, resulting in lethargy and poor cognition. Management of medication will need to be balanced against ability to participate in PT for best functional results. Recommend SNF or rehab due to poor strength, coordination, endurance, balance, and functional mobility once medically cleared, before returning home. Goals Bed Mobility Goal Independent Transfer Goal Standby Assistance Gait Goal Standby Assistance Gait Distance 100 Other Goals Pt will ascend and descend 2 steps with RW and CGA to allow safe home entry at d/c. Days to Meet Goals 5 Frequency of Treatment Frequency Of Treatment Twice a Day Treatment Plan Physical Therapy Treatment Plan Bed Mobility Training,Transfer Training,Gait Training, Therapeutic Exercise,Balance Retraining,Post Op Education, Discharge Planning,Hot or Cold Pack,Neuromuscular Re-ed, Coordination Retraining,Manual Therapy Other Recommendations and Next Treatment Bed mobility, transfers, gait Focus if tolerated. Precautions Lumbar Precautions Log Roll,No Twisting,Limit Bending,Lifting Restriction of 10 lbs,Gait Belt above Incisional Area Recommendations To Nursing Amount of Assist Needed 2 Person Assist Discharge Recommendations PT Discharge Recommendations SNF Rehab Transportation Needs at Discharge Wheelchair/Cabulance
--- NOTE | 2021-01-14 18:58 | PC.NURSE ---
Pt sleeping this a.m. Upon awakening wanting to use BR, soaked brief and incontinent pad. She is a mod assist to get to BSC, and very stiff this a.m. with increased pain 7-8/10 pain. Pt medicated with prn oxycodone 5 mg, tylenol and prn vestoril. Pt lethargic afterwards sleeping through meal. Up to chair and bsc, again with PT/OT this shift needing much assistance and cueing. VSS, afebrile, LS CTA, +BSx4 and on RA. She is intermittently confused asking questions and confusing people and times. She attempts to pull SCD machine and pulling call light out of the wall, coiling it. A&OX1 this evening, spouse at bedside states she is her caregiver and supportive and helpful thoughout the day.
[2021-01-14 20:00] VITALS: BP 139/61; PULSE 101; RESP 17; TEMP 37.9; O2SAT 95
[2021-01-14] MEDS: PANTOPRAZOLE DR 40 MG TABLET PO (21:25)
[2021-01-14] MEDS: BUSPIRONE 5 MG TABLET 30 MG PO (21:25)
[2021-01-14] MEDS: SERTRALINE 50 MG TABLET 150 MG PO (21:25)
[2021-01-14] MEDS: ATORVASTATIN 20 MG TABLET PO (21:25)
[2021-01-14] MEDS: SENNOSIDES 8.6 MG TABLET 17.2 MG PO (21:25)
[2021-01-15 00:21] VITALS: BP 113/45; PULSE 86; RESP 16; TEMP 37.7; O2SAT 91
[2021-01-15] MEDS: LEVOTHYROXINE 88 MCG TABLET PO (06:29)
[2021-01-15 06:45] VITALS: BP 145/56; PULSE 82; RESP 18; TEMP 38.4; O2SAT 95
--- NOTE | 2021-01-15 07:18 | PM.PNPO.1 ---
Subjective Subjective Date Patient Seen: 01/15/21 Time Patient Seen: 07:19 Interval history: Patient is complaining of moderate back pain this morning. She is somewhat confused and has difficulty holding a conversation. When asked if she is feeling ill, she says yes she is feeling hot. She also notes an increasing urination. Exam Vital Signs (past 8 hours): - 01/15/21 00:21 01/15/21 06:45 Temperature 99.8 F H 101.2 F H Pulse Rate 86 82 Respiratory Rate 16 18 Blood Pressure 113/45 L 145/56 H Pulse Oximetry 91 95 Oxygen Delivery Method Nasal Cannula Oxygen Flow Rate 0 Narrative Exam Narrative: 80-year-old female, resting comfortably in bed, mild distress due to pain. Patient is unable to roll with single person assist to check her wound. Bilateral lower extremity motor function is grossly intact, sensation is grossly intact to light touch. Calves are soft, nontender to palpation. Objective Labs Result Diagrams: 01/14/21 05:30 PFSH Medical History ADHD Anxiety Asthma BCC (basal cell carcinoma) Bradycardia Chronic back pain Chronic neck pain CKD (chronic kidney disease), stage III Depression Dermatitis Ectopic beats Fragile skin GERD (gastroesophageal reflux disease) Hearing loss Hemorrhoids Hepatitis C HLD (hyperlipidemia) Hypothyroidism Osteoarthritis Rheumatic fever (~194) RLS (restless legs syndrome) SCC (squamous cell carcinoma) (~10/2018) Spinal stenosis Vertigo Surgical History History of arthroplasty of right knee History of carpal tunnel release Hx of abdominal surgery Hx of appendectomy Hx of bilateral cataract extraction Hx of fusion of cervical spine (02/01/19) Hx of hemorrhoidectomy Hx of knee surgery Hx of kyphoplasty (01/29/20) Hx of shoulder surgery 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) Social History household members: spouse Smoking Status: Never smoker alcohol intake: current Assessment & Plan Post-op Postoperative Procedures: Procedures Operation Date: 01/13/21 07:45 Actual Procedure Side Surgeon p L2-3 hemilaminectomy, L4-5 TLIF with posterior instrumentation, Transforminal Interbody Fusion Not Applicable Jeff Horn MD Postoperative day: 2 Postoperative status narrative: Status post L2-3 hemilaminectomy, L4-5 TLIF -postoperative fever Postoperative plan narrative: -fever is 101.3 today. The patient is unable to communicate well if she is having symptoms. I will get a CBC, BMP and UA -mobilize with PT if able. Weightbearing as tolerated front wheel walker. Limit bending, lifting, twisting -DC to SNF in 1-2 days Quality VTE Deep Vein Thrombosis/Pulmonary Embolism Present on Admission: No
[2021-01-15 07:55] VITALS: BP 165/68; PULSE 79; RESP 18; TEMP 36.9; O2SAT 94
[2021-01-15 08:38] LABS: Hematocrit 30.4 % (36-46); Hemoglobin 10.3 g/dL (12.0-16.0); Mean Corpuscular HGB Conc 33.9 % (30-36); Mean Corpuscular Hemoglobin 32.9 PG (26-34); Mean Corpuscular Volume 97.2 fL (80-100); Platelet Count 130 X10^3/uL (150-400); Red Blood Cell Count 3.13 X10^6/uL (4.0-5.2); Red Cell Distribution Width 13.5 % (11.6-14.8); White Blood Cell Count 11.7 X10^3/uL (4.5-11.0)
[2021-01-15 08:49] LABS: BUN Creatinine Ratio 15.2 (6-22); Blood Urea Nitrogen 20 mg/dL (7-17); Calcium 9.1 mg/dL (8.4-10.2); Carbon Dioxide 27 mmol/L (22-32); Chloride 102 mmol/L (98-107); Estimated Glomerular Filt Rate 38.7 mL/min (>60); Glucose 110 mg/dL (80-110); HEMOLYSIS < 15 (0-50); Sodium 137 mmol/L (137-145)
[2021-01-15] MEDS: ACETAMINOPHEN 325 MG TABLET 650 MG PO ×2 (09:12→15:37)
[2021-01-15] MEDS: DOCUSATE 100 MG CAPSULE PO ×2 (09:12→21:42)
--- NOTE | 2021-01-15 10:37 | OT.IP.EVAL ---
Current Diagnoses Spondylolisthesis, lumbar region (01/13/21) Spinal stenosis, lumbar region with neurogenic claudication (01/13/21) Surgery Performed Operation Date: 01/13/21 07:45 Actual Procedures p L2-3 hemilaminectomy, L4-5 TLIF with posterior instrumentation, Transforminal Interbody Fusion(Not Applicable) - Jeff Horn MD Past Medical History (Last Reviewed 01/15/21 @ 07:20 by Chely Campbell PA-C) ADHD Anxiety Asthma BCC (basal cell carcinoma) Bradycardia Chronic back pain Chronic neck pain CKD (chronic kidney disease), stage III Depression Dermatitis Ectopic beats Fragile skin GERD (gastroesophageal reflux disease) Hearing loss Hemorrhoids Hepatitis C History of arthroplasty of right knee History of carpal tunnel release HLD (hyperlipidemia) Hx of abdominal surgery Hx of appendectomy Hx of bilateral cataract extraction Hx of fusion of cervical spine (02/01/19) Hx of hemorrhoidectomy Hx of knee surgery Hx of kyphoplasty (01/29/20) Hx of shoulder surgery Hypothyroidism Osteoarthritis Rheumatic fever (~194) RLS (restless legs syndrome) 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) SCC (squamous cell carcinoma) (~10/2018) Spinal stenosis Vertigo Surgical History (Last Reviewed 01/15/21 @ 07:20 by Chely Campbell PA-C) History of arthroplasty of right knee History of carpal tunnel release Hx of abdominal surgery Hx of appendectomy Hx of bilateral cataract extraction Hx of fusion of cervical spine (02/01/19) Hx of hemorrhoidectomy Hx of knee surgery Hx of kyphoplasty (01/29/20) Hx of shoulder surgery 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) Occupational Therapy Inpatient Evaluation/Re-Eval M1 PT/OT-IP Prior Functional Status Start: 01/14/21 08:31 Freq: Status: Active Protocol: Document 01/15/21 09:54 [facility] (Rec: 01/15/21 11:01 [facility] [id number]) Medical Review Prior Functional Status Medical History Reviewed Yes Diet/Fluid Consistency Regular Communication WNLs Mobility and Gait Gait trains mostly with SPC, has a RW Activities of Daily Living and IADL's Mostly I, helps as needed Prior Functional Level (Other details) Mostly I, helps as needed . Lately due to her back pain , pt's has been having to assist more with her needs for shirts and LB dressing. Pt just received a steroid shot for her right shoulder pain 2 weeks ago. Social History Household Members spouse Living Arrangements House Number of Floors (Floors) One Floor Number of Stairs To Enter/Railing? 2 steps to enter and no rail, , Hayley, usually holds onto patient Home Environment Standard Height Toilet Home Equipment Front Wheel Walker,Straight Cane,Manual Wheelchair Employment Status Retired Additional Social History Comment , Hayley, assists patient and states that she can hire more help for pt as needed at home. M2 OT-IP Current Condition Start: 01/15/21 10:47 Freq: Status: Active Protocol: Document 01/15/21 09:54 [facility] (Rec: 01/15/21 11:01 [facility] [id number]) Occupational Therapy Current Condition Current Condition Evaluation Date 01/15/21 Treatment Diagnosis S/p L4-5 TLIF , decreased mobility Diagnosis Onset Date 01/13/21 M3 OT- IP Subjective and Pain Start: 01/15/21 10:47 Freq: Status: Active Protocol: Document 01/15/21 09:54 [facility] (Rec: 01/15/21 11:01 [facility] [id number]) OT- Subjective Occupational Therapy Visit Type Type Initial Evaluation Visit Start Time 09:54 Visit Stop Time 10:37 Total Visit Minutes 43 Occupational Therapy Visit Comments Patient Comments Pt very sleepy and her in the room during OT eval. Patient/Caregiver Goals To go to skilled rehab. OT Pain Assessment Pain When Pain Assessed At Rest Pain Present Pain Present Pain Reported Location back Intensity 4 M4 OT- IP ADL's Start: 01/15/21 10:47 Freq: Status: Active Protocol: Document 01/15/21 09:54 [facility] (Rec: 01/15/21 11:01 [facility] [id number]) OT HMW-Hkow-Yulajlm Comments OT Self-Feeding Comments NOt at meal time. OT ADL-Grooming General Evaluation Grooming Ability Standby Assistance Areas Needing Assistance Retrieving/Set-up of Grooming Items Comments OT Grooming Comments Pt able to wash her face after set-up of wash cloth. OT ADL-Oral Care Comments Oral Care Comments Not performed. OT ADL-Dressing General Eval Lower Body Dressing Ability Total Assistance Areas Needing Assistance Underpants/Brief,Socks OT ADL-Toileting General Evaluation Toileting Ability Total Assistance Areas Needing Assistance Manage Clothing,Perform Perineal Hygiene Comments OT Toileting Comments Pt looking to get a BSC. OT ADL-Bathing Comments OT Bathing Comments Sponge bath more appropriate at this time. Pt would benefit from a tub bench at home. M6 OT- IP Functional Cognition Start: 01/15/21 10:47 Freq: Status: Active Protocol: Document 01/15/21 09:54 [facility] (Rec: 01/15/21 11:01 [facility] [id number]) Cognitive Factors Limiting Selfcare Function Cognitive Ability Level of Alertness Alert,Drowsy Patient Orientation Name,Place,Situation Attention Span Ability Capable of Focused Attention, Capable of Sustained Attention Ability to Follow Commands Able to Follow One Step Commands with Increased Time, Able to Follow One Step Commands with Repetition Safety Awareness Decreased Recall of Precautions,Decreased Ability to Apply Precautions Cognitive Comments Cognitive Assessment Comments Pt very sleepy and and needing simple concrete commands to follow for bed mobility, toileting, and FWW safety at this time. OT- Vision and Hearing OT- Hearing Assessment OT- Hearing Assessment WF M7 OT- IP Mobility and Balance Start: 01/15/21 10:47 Freq: Status: Active Protocol: Document 01/15/21 09:54 [facility] (Rec: 01/15/21 11:01 [facility] [id number]) OT- Bed Mobility Assessment Rolling Type of Rolling Roll to Left Level of Assistance Maximum Assistance,1 Person Assistance Supine to Sit Supine to Sit Assist Maximum Assistance,1 Person Assistance Scooting Scooting to Edge of Bed Maximum Assistance,1 Person Assistance OT-Transfer Assessment Sit to and From Stand Sit to and from Stand Maximum Assistance,1 Person Assistance Transfers Transfer Ability Moderate Assistance,Maximum Assistance,1 Person Assistance ,2 Person Assistance Technique Transfer Destination Bed,Bedside Commode,Chair Transfer Technique Stand Step Pivot Devices Transfer Assistive Devices Gait Belt,Front Wheeled Walker Comments Mobility Comments Decided to roll to the left due to pt has right shoulder pain, MAX AX 1 and use of green pad to assist to roll to her side. Assist to help get her legs off the bed and to get her trunk upright. Pt's present to assist as well. Pt needing MAX AX 1 to stand for hi bed and transfer to BSc and assist for balance and to help guide the FWW. [facility] for safety as pt tiring and leaning to the right. . OT- Gait Assessment Comments Gait Ability Comments Transfer only at this time. OT- Balance Assessment Sitting Balance and Reactions Static Sitting Balance Ability Fair Dynamic Sitting Balance Ability Poor Standing Balance and Reactions Static Standing Balance Ability Poor Dynamic Standing Balance Ability Poor M8 OT- IP Objective Assessments Start: 01/15/21 10:47 Freq: Status: Active Protocol: Document 01/15/21 09:54 [facility] (Rec: 01/15/21 11:01 [facility] [id number]) OT-Muscle Tone Assessment Muscle Tone WNL Yes M9 OT- IP Assessment and Plan Start: 01/15/21 10:47 Freq: Status: Active Protocol: Document 01/15/21 09:54 [facility] (Rec: 01/15/21 11:01 [facility] [id number]) OT Summary Assessment and Plan Potential Rehabilitation Potential Good Analytic Complexity at Evaluation Low Summary OT Impairments Pain,Strength,Balance, Functional Cognition, Functional Mobility,Grooming, Dressing,Toileting,Bathing, Toilet Transfers,Shower Transfers,Activity Tolerance Progress Towards Goals Slow Progress due to Pain,Slow Progress due to Medical Issues,Slow Progress due to Activity Tolerance,Slow Progress due to Cognition Assessment Summary Pt low complexity and main barriers are pain, steps, and now needing two person assist for needs of mobility and ADl' s, Pt has a very supportive that is able to assist however at pt's current level to great for her to assist pt. Both pt and her have decided that it would be best for pt to go to skilled rehab prior to going home. Goals Grooming Goal Independent Dressing Goal Minimal Assistance Toileting Goal Independent Bathing Goal Independent Toilet Transfer Goal Independent Shower Transfer Goal Standby Assistance Days to Meet Goals 30 Frequency of Treatment Frequency Of Treatment Once a Day Treatment Plan OT Treatment Plan ADL Training,Functional Cognition Training,Functional Mobility,Patient/Family Education,Discharge Planning Other Treatment Recommendations and Next machine hoop maker helper front of the sink Treatment Focus with recliner behind her for grooming needs. Discharge Recommendations OT Discharge Recommendations SNF Rehab Transportation Needs at Discharge Wheelchair/Cabulance
[2021-01-15 11:10] LABS: Appearance Urine UA SL CLOUDY; Bilirubin Urine UA NEGATIVE (NEGATIVE); Color Urine UA YELLOW; Glucose Urine UA NEGATIVE (Negative); Ketones Urine UA NEGATIVE (NEGATIVE); Leukocyte Esterase Urine UA 1+ (NEGATIVE); Nitrite Urine UA NEGATIVE (Negative); Occult Blood Urine UA 2+ (Negative); Protein Urine UA 2+ (Negative); Specific Gravity Urine UA 1.015 (1.000-1.035); Urobilinogen Urine UA 0.2 E.U./dL (0.2)
[2021-01-15 11:20] LABS: Amorphous Sediment Urine 3+; Bacteria Urine Many (>30); Culture Indicated Urine Specimen Cultured; RBC Urine 5-10/HPF (0-5/HPF); Squamous Epithelial Cell Urine 1-5 /HPF (0-5/HPF); WBC Urine 5-10/HPF (0-5/HPF)
--- NOTE | 2021-01-15 12:07 | PT.IPTN ---
Current Diagnoses Spondylolisthesis, lumbar region (01/13/21) Spinal stenosis, lumbar region with neurogenic claudication (01/13/21) Surgery Performed Operation Date: 01/13/21 07:45 Actual Procedures p L2-3 hemilaminectomy, L4-5 TLIF with posterior instrumentation, Transforminal Interbody Fusion(Not Applicable) - Jeff Horn MD Physical Therapy Treatment Note M2 PT-IP Current Condition Start: 01/14/21 08:31 Freq: Status: Active Protocol: Document 01/15/21 11:42 SP (Rec: 01/15/21 14:00 SP [id number]) Physical Therapy Current Condition Current Condition Evaluation Date 01/14/21 Treatment Diagnosis Decreased mobility s/p TLIF Onset Date 01/13/2021 M3 PT-IP Subjective Start: 01/14/21 08:31 Freq: Status: Active Protocol: Document 01/15/21 11:42 SP (Rec: 01/15/21 14:00 SP [id number]) Subjective Physical Therapy Visit Type Type Treatment Note Visit Start Time 11:42 Visit Stop Time 12:07 Total Visit Minutes 25 Notes Spouse in room, observation only throughout tx. Attempted see pt after OT but unable to keep alert, so agreeable to return later am. Nurse provided 2nd person assist throughout tx for mobility safety. Number of CREDIT RISK REVIEW OFFICER Visits 2 Physical Therapy Visit Comments Patient Comments Pt agreeable to working with therapy initially after OT but unable keep alert. When returned later am, agreeable to mobilize with PT. Patient Goals Pt and Hayley agreeable to SNF to get stronger before returning home . Therapy Pain Assessment Pain Present Pain Present Denied Pain M4 PT-IP Mobility and Gait Start: 01/14/21 08:31 Freq: Status: Active Protocol: Document 01/15/21 11:42 SP (Rec: 01/15/21 14:00 SP [id number]) PT-Bed Mobility Assessment Rolling Type of Rolling Log Rolling,Roll to Right Level of Assist Maximal Assistance,1 Person Assistance Supine to Sit Supine to Sit Maximum Assistance,1 Person Assistance,Bedrails Sit to Supine Sit to Supine Minimal Assistance,Maximum Assistance,2 Person Assistance Scooting Scooting to Edge of Bed Maximum Assistance Scooting Up and Down in Bed Dependent PT-Transfer Assessment Sit to and From Stand Sit to and from Stand Contact Guard Assistance, Minimal Assistance,Maximum Assistance,2 Person Assistance ,Use of Upper Extremities Equipment Transfer Assistive Device Gait Belt,Front Wheeled Walker Orthotic/Prosthetic Devices or Brace: No Transfers Transfer Destination Bed,Chair Transfer Technique Stand Step Pivot Transfer Ability Level of Assist Contact Guard Assistance, Minimal Assistance,Maximum Assistance,2 Person Assistance ,Use of Upper Extremities Comments Mobility Comments Pt very lathargic unable to keep eyes open up in chair when arrived initially after OTtx. Pt agreeable to working with CREDIT RISK REVIEW OFFICER later am. Pt L sidelying in room when arrived 2nd attempt. Pt completed L SL>sit, scoot to EOB Max A x1. Sit>stand CG- Min x1, Max A x1 SPT bed>chair w/ FWW support to wt shift, reposition FWW and max cues cuing for BLE foot clearance and bigger steps. TRIBE reaching back for chair Max A x1. Seated on front chair light contact support on chair better today. 3 min rest then SPT back to bed MaxA x1/ CGA x1 same using FWW. Stand>sit Mod A x1, Sit>supine Min A for trunk righting to SL L and Max A BLE into bed. SL LR to R to supine Mod A x1, lateral scoot to center in bed Max A x2 usign transfer pad. Provided pillow under BLE and elevated HOB for comfort. Pt had call light and all needs in reach with bed alarmed, in room before left. Gait Assessment Comments Gait Comments SPT only Max A x1, CGA of 2nd person for safety using fWW, cued foot clearance and stride each step bed<> chair. PT-Balance Assessment Sitting Balance and Reactions Static Sitting Balance Ability Fair Dynamic Sitting Balance Ability Poor Standing Balance and Reactions Static Standing Balance Ability Poor Dynamic Standing Balance Ability Poor Device Used FWW M5 PT-IP Objective Assessments Start: 01/14/21 08:31 Freq: Status: Active Protocol: Document 01/14/21 09:40 MB (Rec: 01/14/21 10:34 MB [id number]) Orientation Orientation/Cognition Level of Alertness Lethargic Orientation Name,Birthday Safety Awareness Decreased Safety Awareness Memory Description Short Term Impaired Comments Pt is very lethargic after pain medication this morning. Gross Range of Motion Upper Extremity ROM Impairments All range and MMT limited d/t lethargy Strength Comments Strength Comments Pt is able to perform full range LAQ B sitting as well as full DF and great toe extension. With PT pushing for MMT, right knee extension and DF is weaker than the left Sensation Assessment Comments Sensation Comments Cannot test d/t lethargy this a.m. M6 PT-IP Treatment Start: 01/14/21 08:31 Freq: Status: Active Protocol: Document 01/15/21 11:42 SP (Rec: 01/15/21 14:00 SP [id number]) Physical Therapy Treatment Education Education Provided Precautions,Post-Op Packet, Safety M7 PT-IP Assessment and Plan Start: 01/14/21 08:31 Freq: Status: Active Protocol: Document 01/15/21 11:42 SP (Rec: 01/15/21 14:00 SP [id number]) PT Summary Assessment and Plan Potential Rehabilitation Potential Fair Status of Condition at Evaluation Evolving Summary Impairments Pain,ROM,Strength,Balance, Cognition,Bed Mobility, Transfers,Gait,Activity Tolerance Progress Towards Goals Progressing Toward Goals,Slow Progress due to Activity Tolerance,Slow Progress - Other Assessment Summary Pt required decreased assist this tx: Max A x1, CGA- min A2nd person during bed mobility, transfers using FWW. Pt has difficulty keeping alert and decreased activity tolerance tires quickly. CREDIT RISK REVIEW OFFICER recommending SNF with pt and in agreement for progressed strengthening and functional mobility I. Goals Bed Mobility Goal Independent Transfer Goal Standby Assistance Gait Goal Standby Assistance Gait Distance 100 Other Goals Pt will ascend and descend 2 steps with RW and CGA to allow safe home entry at d/c. Days to Meet Goals 5 Frequency of Treatment Frequency Of Treatment Twice a Day Treatment Plan Physical Therapy Treatment Plan Bed Mobility Training,Transfer Training,Gait Training, Therapeutic Exercise,Balance Retraining,Post Op Education, Discharge Planning,Hot or Cold Pack,Neuromuscular Re-ed, Coordination Retraining,Manual Therapy Other Recommendations and Next Treatment bed mob, transfers, gait if Focus able. Precautions Lumbar Precautions Log Roll,No Twisting,Limit Bending,Lifting Restriction of 10 lbs,Gait Belt above Incisional Area Recommendations To Nursing Amount of Assist Needed 2 Person Assist Discharge Recommendations PT Discharge Recommendations SNF Rehab Transportation Needs at Discharge Wheelchair/Cabulance
[2021-01-15 12:35] VITALS: BP 149/66; PULSE 69; RESP 20; TEMP 38.1; O2SAT 92
--- NOTE | 2021-01-15 13:46 | PT.IPTN ---
Current Diagnoses Spondylolisthesis, lumbar region (01/13/21) Spinal stenosis, lumbar region with neurogenic claudication (01/13/21) Surgery Performed Operation Date: 01/13/21 07:45 Actual Procedures p L2-3 hemilaminectomy, L4-5 TLIF with posterior instrumentation, Transforminal Interbody Fusion(Not Applicable) - Jeff Horn MD Physical Therapy Treatment Note M2 PT-IP Current Condition Start: 01/14/21 08:31 Freq: Status: Active Protocol: Document 01/15/21 11:42 SP (Rec: 01/15/21 14:00 SP [id number]) Physical Therapy Current Condition Current Condition Evaluation Date 01/14/21 Treatment Diagnosis Decreased mobility s/p TLIF Onset Date 01/13/2021 M3 PT-IP Subjective Start: 01/14/21 08:31 Freq: Status: Active Protocol: Document 01/15/21 13:23 KS (Rec: 01/15/21 14:24 KS [id number]) Subjective Physical Therapy Visit Type Type Treatment Note Visit Start Time 13:23 Visit Stop Time 13:46 Total Visit Minutes 23 Number of PRIMARY OPERATOR Visits 3 Physical Therapy Visit Comments Patient Comments Pt agreeable to work w/ therapy. M4 PT-IP Mobility and Gait Start: 01/14/21 08:31 Freq: Status: Active Protocol: Document 01/15/21 13:23 KS (Rec: 01/15/21 14:24 KS [id number]) PT-Bed Mobility Assessment Rolling Type of Rolling Log Rolling,Roll to Left Level of Assist Moderate Assistance,1 Person Assistance Supine to Sit Supine to Sit Maximum Assistance,1 Person Assistance,Bedrails Sit to Supine Sit to Supine Maximum Assistance,1 Person Assistance,Bedrails Scooting Scooting to Edge of Bed Moderate Assistance PT-Transfer Assessment Sit to and From Stand Sit to and from Stand Minimal Assistance,Moderate Assistance,1 Person Assistance ,Use of Upper Extremities Equipment Transfer Assistive Device Gait Belt,Front Wheeled Walker Orthotic/Prosthetic Devices or Brace: No Transfers Transfer Destination Bed,Bedside Commode Transfer Technique Stand Step Pivot Transfer Ability Level of Assist Moderate Assistance,1 Person Assistance,Use of Upper Extremities Comments Mobility Comments Pt sup in bed upon arrival from therapy and unable to recall precautions. Mod A and cues for logroll to L and Max A for sidelying<>sit. Mod A and bed rail for scooting EOB. Pt denied dizziness or lightheadedness. Min A for sit <>stand from bed w/ FWW. Following 1 min standing, requested to use bedside commode. Instructed pt to sit back down for prep of BSC. Min A for stand<>sit for slow descent and Min A for second sit<>stand. Pt then performed stand step pivot to BSC w/ Mod A and FWW management. After voiding, pt performed additional stand step pivot plus 4x small lateral steps towards HOB Mod A. Max A for sit<>sidelying and logroll back into bed. Pt then performed 1x10 ankle pumps and glute sets w/ cues. Asked pt spinal precautions again at the end of treatment and she was unable to recall. Pt left in bed w/ SCDs and alarm on and all needs in reach. Gait Assessment Gait Gait Assistance Required: Moderate Assistance,1 Person Assist Distance (Feet) 5 Assistive Devices Assistive Device Gait Belt,Front Wheeled Walker Gait Deviations General Gait Pattern Decreased Stride Length, Decreased Feet Clearance, Flexed Trunk Factors Limiting Gait Function Factors Limiting Gait Function Decreased Activity Tolerance, Decreased Strength,Difficulty Following Directions, Incoordination,Pain,Poor Balance,Poor Safety Awareness Comments Gait Comments Pt performed 2x stand step pivot and 4x small lateral steps w/ FWW and Mod A, cues, and FWW management. Pt reported fatigue following. PT-Balance Assessment Sitting Balance and Reactions Static Sitting Balance Ability Fair Dynamic Sitting Balance Ability Poor Standing Balance and Reactions Static Standing Balance Ability Poor Dynamic Standing Balance Ability Poor Device Used FWW M5 PT-IP Objective Assessments Start: 01/14/21 08:31 Freq: Status: Active Protocol: Document 01/14/21 09:40 MB (Rec: 01/14/21 10:34 MB [id number]) Orientation Orientation/Cognition Level of Alertness Lethargic Orientation Name,Birthday Safety Awareness Decreased Safety Awareness Memory Description Short Term Impaired Comments Pt is very lethargic after pain medication this morning. Gross Range of Motion Upper Extremity ROM Impairments All range and MMT limited d/t lethargy Strength Comments Strength Comments Pt is able to perform full range LAQ B sitting as well as full DF and great toe extension. With PT pushing for MMT, right knee extension and DF is weaker than the left Sensation Assessment Comments Sensation Comments Cannot test d/t lethargy this a.m. M6 PT-IP Treatment Start: 01/14/21 08:31 Freq: Status: Active Protocol: Document 01/15/21 13:23 KS (Rec: 01/15/21 14:24 KS [id number]) Physical Therapy Treatment Exercises Exercises Ankle Pumps,Gluteal Sets Education Education Provided Precautions,Post-Op Packet, Safety M7 PT-IP Assessment and Plan Start: 01/14/21 08:31 Freq: Status: Active Protocol: Document 01/15/21 13:23 KS (Rec: 01/15/21 14:24 KS [id number]) PT Summary Assessment and Plan Potential Rehabilitation Potential Fair Status of Condition at Evaluation Evolving Summary Impairments Pain,ROM,Strength,Balance, Cognition,Bed Mobility, Transfers,Gait,Activity Tolerance Progress Towards Goals Progressing Toward Goals,Slow Progress due to Activity Tolerance,Slow Progress - Other Assessment Summary Pt continues to require Mod to Max A for bed mobility, Min to Mod A for sit<>stand w/ FWW , and Mod A for transfers w/ FWW management and cues. Pt is quick to fatigue following transfers, but able to complete LE exercises to promote blood flow and strengthening. Pt unable to recall any spinal precautions at beginning or end of treatment. She is unsafe w/ FWW and requiring increased assist and therefore unsafe to go home at this time. She will require SNF to improve strength and functional mobility independence. Goals Bed Mobility Goal Independent Transfer Goal Standby Assistance Gait Goal Standby Assistance Gait Distance 100 Other Goals Pt will ascend and descend 2 steps with RW and CGA to allow safe home entry at d/c. Days to Meet Goals 5 Frequency of Treatment Frequency Of Treatment Twice a Day Treatment Plan Physical Therapy Treatment Plan Bed Mobility Training,Transfer Training,Gait Training, Therapeutic Exercise,Balance Retraining,Post Op Education, Discharge Planning,Hot or Cold Pack,Neuromuscular Re-ed, Coordination Retraining,Manual Therapy Other Recommendations and Next Treatment bed mob, transfers, gait if Focus able. Precautions Lumbar Precautions Log Roll,No Twisting,Limit Bending,Lifting Restriction of 10 lbs,Gait Belt above Incisional Area Recommendations To Nursing Amount of Assist Needed 2 Person Assist Discharge Recommendations PT Discharge Recommendations SNF Rehab Transportation Needs at Discharge Wheelchair/Cabulance
[2021-01-15] MEDS: cefTRIAXone 1,000 MG in SODIUM CHLORIDE 0.9% 100 ML 200 ML IV (15:23)
[2021-01-15 18:25] VITALS: BP 123/57; PULSE 81; RESP 20; TEMP 37; O2SAT 94
[2021-01-15 20:40] VITALS: BP 124/51; PULSE 79; RESP 18; TEMP 37.7; O2SAT 99
[2021-01-15] MEDS: BUSPIRONE 5 MG TABLET 30 MG PO (21:41)
[2021-01-15] MEDS: SENNOSIDES 8.6 MG TABLET 17.2 MG PO (21:42)
[2021-01-15] MEDS: PANTOPRAZOLE DR 40 MG TABLET PO (21:42)
[2021-01-15] MEDS: ATORVASTATIN 20 MG TABLET PO (21:42)
[2021-01-15] MEDS: SERTRALINE 50 MG TABLET 150 MG PO (21:42)
[2021-01-15] MEDS: OXYCODONE IR 5 MG TABLET 2.5 MG PO (21:43)
[2021-01-16] VITALS (7 sets, daily range): BP systolic 115–142; BP diastolic 53–65; PULSE 73–95; RESP 14–20; TEMP 36.6–38.4; O2SAT 94–96
[2021-01-16] MEDS: ACETAMINOPHEN 325 MG TABLET 650 MG PO ×3 (04:00→15:22)
[2021-01-16] MEDS: LEVOTHYROXINE 88 MCG TABLET PO (05:38)
--- NOTE | 2021-01-16 08:54 | CM.DPNOTE ---
DCP Note Spoke at length w/patient's spouse Hayley yesterday; reviewed DCP options. Patient remains extremely somnolent, able to work w/OT minimally. Recommendation remains SNF upon DC Hayley reviews her routine for patient's care at home; Hayley provides much assist to include help w/dressing, bathing, medications, cooking/chores, transportation. Hayley admits she has back issues as well but wants to keep patient home for as long as possible. Discussed casino cashier options. Asked spouse what her plan was when patient's care needs outweigh spouse's care giving abilities ? Hayley has an RESIDENTIAL secured near [place], [place] for she and patient when needed. Hayley agreeable to referral to [facility] (wants patient to remain in [place]), however, spouse remains hopeful patient will improve significantly and can return home w/spouse and in home cgs Placed call to July at [facility]; patient has been accepted for admissions Monday, need updated COVID PCR and COVID vaccination info. Following closely for coordination of DCP when patient medically stable. Spouse prepared for patient to DC today, 01.16.21 if patient is medically stable (patient developed post operative fever yesterday) PASRR needed if SNF JW
--- NOTE | 2021-01-16 09:31 | PT.IPTN ---
Current Diagnoses Spondylolisthesis, lumbar region (01/13/21) Spinal stenosis, lumbar region with neurogenic claudication (01/13/21) Surgery Performed Operation Date: 01/13/21 07:45 Actual Procedures p L2-3 hemilaminectomy, L4-5 TLIF with posterior instrumentation, Transforminal Interbody Fusion(Not Applicable) - Jeff Horn MD Physical Therapy Treatment Note M2 PT-IP Current Condition Start: 01/14/21 08:31 Freq: Status: Active Protocol: Document 01/15/21 11:42 SP (Rec: 01/15/21 14:00 SP [id number]) Physical Therapy Current Condition Current Condition Evaluation Date 01/14/21 Treatment Diagnosis Decreased mobility s/p TLIF Onset Date 01/13/2021 M3 PT-IP Subjective Start: 01/14/21 08:31 Freq: Status: Active Protocol: Document 01/16/21 09:07 KS (Rec: 01/16/21 12:02 KS [id number]) Subjective Physical Therapy Visit Type Type Treatment Note Visit Start Time 09:07 Visit Stop Time 09:31 Total Visit Minutes 24 Number of SUPPORT REPRESENTATIVE Visits 4 Physical Therapy Visit Comments Patient Comments Pt agreeable to work w/ therapy. Pts spouse present throughout treatment. M4 PT-IP Mobility and Gait Start: 01/14/21 08:31 Freq: Status: Active Protocol: Document 01/16/21 09:07 KS (Rec: 01/16/21 12:02 KS [id number]) PT-Bed Mobility Assessment Rolling Type of Rolling Log Rolling,Roll to Left Level of Assist Moderate Assistance,1 Person Assistance Supine to Sit Supine to Sit Maximum Assistance,1 Person Assistance,Bedrails Sit to Supine Sit to Supine Moderate Assistance,1 Person Assistance,Bedrails Scooting Scooting to Edge of Bed Moderate Assistance PT-Transfer Assessment Sit to and From Stand Sit to and from Stand Minimal Assistance,Moderate Assistance,1 Person Assistance ,Use of Upper Extremities Equipment Transfer Assistive Device Gait Belt,Front Wheeled Walker Orthotic/Prosthetic Devices or Brace: No Transfers Transfer Destination Bed,Toilet Transfer Technique Pt ambulated w/ FWW Transfer Ability Level of Assist Moderate Assistance,1 Person Assistance,Use of Upper Extremities Comments Mobility Comments Pt in bed upon arrival w/ spouse in room. Unable to recall spinal precautions. Mod A and cues for logroll to L. Max A for sidelying<>sit and Mod A for scooting EOB. Pt sit <>stand Min A and then ambulated ~15 ft to toilet. Pt ambulated slowly w/ flexed trunk, decreased stride and foot clearance. Pt Mod A for stand<>sit on toilet w. cues to use hand rails. After voiding, pts spouse provided Mod A to pt for sit<>stand, she then provided CGA for pt ambulation back to bed w/ Fww ~15 ft. and Min A for stand<> sit, Mod A for sit<>supine and logroll. Pt left in bed w/ all needs in reach. Gait Assessment Gait Gait Assistance Required: Contact Guard Assist,Minimum Assistance,1 Person Assist Distance (Feet) 30 Assistive Devices Assistive Device Gait Belt,Front Wheeled Walker Gait Deviations General Gait Pattern Decreased Stride Length, Decreased Feet Clearance, Flexed Trunk Factors Limiting Gait Function Factors Limiting Gait Function Decreased Activity Tolerance, Decreased Strength,Difficulty Following Directions, Incoordination,Pain,Poor Balance,Poor Safety Awareness Comments Gait Comments Pt ambulated ~30 ft w/ FWW CGA to Min A. She requires frequent cues for sequencing and FWW use and upright posture. PT-Balance Assessment Sitting Balance and Reactions Static Sitting Balance Ability Fair Dynamic Sitting Balance Ability Fair Standing Balance and Reactions Static Standing Balance Ability Fair Dynamic Standing Balance Ability Poor Device Used FWW M5 PT-IP Objective Assessments Start: 01/14/21 08:31 Freq: Status: Active Protocol: Document 01/14/21 09:40 MB (Rec: 01/14/21 10:34 MB [id number]) Orientation Orientation/Cognition Level of Alertness Lethargic Orientation Name,Birthday Safety Awareness Decreased Safety Awareness Memory Description Short Term Impaired Comments Pt is very lethargic after pain medication this morning. Gross Range of Motion Upper Extremity ROM Impairments All range and MMT limited d/t lethargy Strength Comments Strength Comments Pt is able to perform full range LAQ B sitting as well as full DF and great toe extension. With PT pushing for MMT, right knee extension and DF is weaker than the left Sensation Assessment Comments Sensation Comments Cannot test d/t lethargy this a.m. M6 PT-IP Treatment Start: 01/14/21 08:31 Freq: Status: Active Protocol: Document 01/16/21 09:07 KS (Rec: 01/16/21 12:02 KS [id number]) Physical Therapy Treatment Exercises Exercises Ankle Pumps Education Education Provided Precautions,Post-Op Packet, Safety M7 PT-IP Assessment and Plan Start: 01/14/21 08:31 Freq: Status: Active Protocol: Document 01/16/21 09:07 ELSA (Rec: 01/16/21 12:02 VT [id number]) PT Summary Assessment and Plan Potential Rehabilitation Potential Fair Status of Condition at Evaluation Evolving Summary Impairments Pain,ROM,Strength,Balance, Cognition,Bed Mobility, Transfers,Gait,Activity Tolerance Progress Towards Goals Progressing Toward Goals,Slow Progress due to Activity Tolerance,Slow Progress - Other Assessment Summary Pt continues to require Mod to Max A for bed mobility, Min to Mod A for transfers, and CGA to Min A for ambulation w/ FWW. She requires cues for all tasks and has difficulty recalling precautions. Pts spouse able to provide some assistance however also has back issues. At this time, pt is far from baseline and will require SNF to improve strength and functional mobility. Goals Bed Mobility Goal Independent Transfer Goal Standby Assistance Gait Goal Standby Assistance Gait Distance 100 Other Goals Pt will ascend and descend 2 steps with RW and CGA to allow safe home entry at d/c. Days to Meet Goals 5 Frequency of Treatment Frequency Of Treatment Twice a Day Treatment Plan Physical Therapy Treatment Plan Bed Mobility Training,Transfer Training,Gait Training, Therapeutic Exercise,Balance Retraining,Post Op Education, Discharge Planning,Hot or Cold Pack,Neuromuscular Re-ed, Coordination Retraining,Manual Therapy Other Recommendations and Next Treatment bed mob, transfers, gait if Focus able. Precautions Lumbar Precautions Log Roll,No Twisting,Limit Bending,Lifting Restriction of 10 lbs,Gait Belt above Incisional Area Recommendations To Nursing Amount of Assist Needed 1 Person Assist Discharge Recommendations PT Discharge Recommendations SNF Rehab Transportation Needs at Discharge Wheelchair/Cabulance
[2021-01-16] MEDS: MAGNESIUM HYDROXIDE 30 ML UDC PO (09:36)
[2021-01-16] MEDS: DOCUSATE 100 MG CAPSULE PO ×2 (09:36→20:56)
--- NOTE | 2021-01-16 09:59 | P.PN_ITS ---
Subjective Subjective Date Patient Seen: 01/16/21 Time Patient Seen: 09:59 Interval history: Patient is complaining of [id number] low back pain today. She is feeling lethargic and worn out from physical therapy this morning. She has gotten 1 dose of Rocephin yesterday for her urinary tract infection. She does have a fever of 101.2 today. Exam Vital Signs (past 8 hours): - 01/16/21 04:00 01/16/21 05:26 Temperature 101.1 F H 99.3 F Pulse Rate 94 H Respiratory Rate 18 Blood Pressure 133/55 L Pulse Oximetry 94 Oxygen Delivery Method Room Air Oxygen Flow Rate 0 Narrative Exam Narrative: Pleasant 80-year-old female, resting comfortably in bed, no acute distress. Her daughter is at bedside. Dressing is clean, dry, intact. Bilateral lower extremity: Motor function is grossly intact, sensation is grossly intact to light touch, calves are soft, nontender to palpation. Fever of 101.1 Objective Labs Result Diagrams: 01/15/21 08:30 01/15/21 08:30 Labs: Laboratory Results - last 24 hr 01/15/21 10:30 Urine Color Yellow Urine Appearance Sl cloudy Urine pH 7.0 Ur Specific [place] 1.015 Urine Protein 2+ H Urine Glucose (UA) Negative Urine Ketones Negative Urine Occult Blood 2+ H Urine Nitrate Negative Urine Bilirubin Negative Urine Urobilinogen 0.2 Ur Leukocyte Esterase 1+ H Urine RBC 5-10/hpf H Urine WBC 5-10/hpf H Ur Squamous Epith Cells 1-5 /hpf Amorphous Sediment 3+ Urine Bacteria Many (>30) H Ur Culture Indicated? Specimen cultured [facility] Medical History ADHD Anxiety Asthma BCC (basal cell carcinoma) Bradycardia Chronic back pain Chronic neck pain CKD (chronic kidney disease), stage III Depression Dermatitis Ectopic beats Fragile skin GERD (gastroesophageal reflux disease) Hearing loss Hemorrhoids Hepatitis C HLD (hyperlipidemia) Hypothyroidism Osteoarthritis Rheumatic fever (~1944) RLS (restless legs syndrome) SCC (squamous cell carcinoma) (~10/2018) Spinal stenosis Vertigo Surgical History History of arthroplasty of right knee History of carpal tunnel release Hx of abdominal surgery Hx of appendectomy Hx of bilateral cataract extraction Hx of fusion of cervical spine (02/01/19) Hx of hemorrhoidectomy Hx of knee surgery Hx of kyphoplasty (01/29/20) Hx of shoulder surgery 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 Limit bending, lifting, twisting. Weightbearing as tolerated front wheel walker -continue with current pain regimen -continue with Rocephin for empiric antibiotics for her urinary tract infection. Cultures are pending, will tailor to oral antibiotics with final cultures -disposition which likely to SNF in 1-2 days, pending final cultures, resolution of fever, and clearance by PT Quality VTE Deep Vein Thrombosis/Pulmonary Embolism Present on Admission: No
--- NOTE | 2021-01-16 14:03 | OT.IP.TRT ---
Current Diagnoses Spondylolisthesis, lumbar region (01/13/21) Spinal stenosis, lumbar region with neurogenic claudication (01/13/21) Surgery Performed Operation Date: 01/13/21 07:45 Actual Procedures p L2-3 hemilaminectomy, L4-5 TLIF with posterior instrumentation, Transforminal Interbody Fusion(Not Applicable) - Jeff Horn MD Occupational Therapy Treatment Note M2 OT-IP Current Condition Start: 01/15/21 10:47 Freq: Status: Active Protocol: Document 01/15/21 09:54 [facility] (Rec: 01/15/21 11:01 [facility] [id number]) Occupational Therapy Current Condition Current Condition Evaluation Date 01/15/21 Treatment Diagnosis S/p L4-5 TLIF , decreased mobility Diagnosis Onset Date 01/13/21 M3 OT- IP Subjective and Pain Start: 01/15/21 10:47 Freq: Status: Active Protocol: Document 01/16/21 13:20 [facility] (Rec: 01/16/21 14:18 [facility] [id number]) OT- Subjective Occupational Therapy Visit Type Type Treatment Note Visit Start Time 13:20 Visit Stop Time 14:03 Total Visit Minutes 43 Occupational Therapy Visit Comments Patient Comments Pt wanting to get up to use the bathroom. Patient/Caregiver Goals Pt states feels that it would be best to do skilled rehab prior to going home. OT Pain Assessment Pain When Pain Assessed At Rest Pain Present Pain Present Pain Reported M4 OT- IP ADL's Start: 01/15/21 10:47 Freq: Status: Active Protocol: Document 01/16/21 13:20 [facility] (Rec: 01/16/21 14:18 [facility] [id number]) OT [id number] Comments OT Self-Feeding Comments Not at meal time. OT ADL-Grooming Comments OT Grooming Comments Pt able to wash her face after set-up of wash cloth. OT ADL-Toileting General Evaluation Toileting Ability Moderate Assistance Areas Needing Assistance Manage Clothing,Perform Perineal Hygiene Comments OT Toileting Comments Pt able to wipe but needing cues to wipe from front to back. Pt needing assist for brief management needs. OT ADL-Bathing Comments OT Bathing Comments Not performed. M6 OT- IP Functional Cognition Start: 01/15/21 10:47 Freq: Status: Active Protocol: Document 01/16/21 13:20 [facility] (Rec: 01/16/21 14:18 [facility] [id number]) Cognitive Factors Limiting Selfcare Function Cognitive Ability Level of Alertness Alert Patient Orientation Name,Place,Situation Attention Span Ability Capable of Focused Attention, Capable of Sustained Attention Ability to Follow Commands Able to Follow One Step Commands Safety Awareness Decreased Recall of Precautions,Decreased Ability to Apply Precautions Cognitive Comments Cognitive Assessment Comments Pt thinking more clearly today however still needing simple commands to follow for her back precautions. M7 OT- IP Mobility and Balance Start: 01/15/21 10:47 Freq: Status: Active Protocol: Document 01/16/21 13:20 [facility] (Rec: 01/16/21 14:18 [facility] [id number]) OT- Bed Mobility Assessment Rolling Type of Rolling Roll to Left Level of Assistance Maximum Assistance,1 Person Assistance Supine to Sit Supine to Sit Assist Maximum Assistance,1 Person Assistance Scooting Scooting to Edge of Bed Moderate Assistance,1 Person Assistance OT-Transfer Assessment Sit to and From Stand Sit to and from Stand Moderate Assistance,1 Person Assistance Transfers Transfer Ability Minimal Assistance,Moderate Assistance,1 Person Assistance Technique Transfer Destination Bed,Chair,Toilet Devices Transfer Assistive Devices Gait Belt,Front Wheeled Walker Comments Mobility Comments Still use of green pad to assist for bed mobility. MODA to stand to FWW , MIN to MODA for transfers, more assist as pt tires, to asisst to guide the FWW and for her balance. OT- Balance Assessment Sitting Balance and Reactions Static Sitting Balance Ability Good Dynamic Sitting Balance Ability Fair Standing Balance and Reactions Static Standing Balance Ability Fair Dynamic Standing Balance Ability Poor Comments Other Balance Tests/Deviations/Treatment Pt much steadier today. : M8 OT- IP Objective Assessments Start: 01/15/21 10:47 Freq: Status: Active Protocol: Document 01/15/21 09:54 [facility] (Rec: 01/15/21 11:01 [facility] [id number]) OT-Muscle Tone Assessment Muscle Tone WNL Yes M9 OT- IP Assessment and Plan Start: 01/15/21 10:47 Freq: Status: Active Protocol: Document 01/16/21 13:20 [facility] (Rec: 01/16/21 14:18 [facility] [id number]) OT Summary Assessment and Plan Potential Rehabilitation Potential Good Analytic Complexity at Evaluation Low Summary OT Impairments Pain,Strength,Balance, Functional Cognition, Functional Mobility,Grooming, Dressing,Toileting,Bathing, Toilet Transfers,Shower Transfers,Activity Tolerance Progress Towards Goals Progressing Toward Goals Assessment Summary Pt making progress however still needing maximal assist for bed mobility needs. Pt feels this is too much for her to be able to assist her and now has agreed to go to skilled rehab prior to going home. Goals Grooming Goal Independent Dressing Goal Minimal Assistance Toileting Goal Independent Bathing Goal Independent Toilet Transfer Goal Independent Shower Transfer Goal Standby Assistance Days to Meet Goals 20 Frequency of Treatment Frequency Of Treatment Once a Day Treatment Plan OT Treatment Plan ADL Training,Functional Cognition Training,Functional Mobility,Patient/Family Education,Discharge Planning Other Treatment Recommendations and Next shower Treatment Focus Discharge Recommendations OT Discharge Recommendations SNF Rehab Transportation Needs at Discharge Wheelchair/Cabulance
[2021-01-16] MEDS: cefTRIAXone 1,000 MG in SODIUM CHLORIDE 0.9% 100 ML 150 ML IV (14:15)
--- NOTE | 2021-01-16 15:03 | PT.IPTN ---
Current Diagnoses Spondylolisthesis, lumbar region (01/13/21) Spinal stenosis, lumbar region with neurogenic claudication (01/13/21) Surgery Performed Operation Date: 01/13/21 07:45 Actual Procedures p L2-3 hemilaminectomy, L4-5 TLIF with posterior instrumentation, Transforminal Interbody Fusion(Not Applicable) - Jeff Horn MD Physical Therapy Treatment Note M2 PT-IP Current Condition Start: 01/14/21 08:31 Freq: Status: Active Protocol: Document 01/15/21 11:42 SP (Rec: 01/15/21 14:00 SP [id number]) Physical Therapy Current Condition Current Condition Evaluation Date 01/14/21 Treatment Diagnosis Decreased mobility s/p TLIF Onset Date 01/13/2021 M3 PT-IP Subjective Start: 01/14/21 08:31 Freq: Status: Active Protocol: Document 01/16/21 14:43 [facility] (Rec: 01/16/21 15:17 [facility] [id number]) Subjective Physical Therapy Visit Type Type Treatment Note Visit Start Time 14:43 Visit Stop Time 15:03 Total Visit Minutes 20 Number of REHAB NURSING TECH Visits 5 Physical Therapy Visit Comments Patient Comments Pt agreeable to work w/ therapy. Pts spouse present throughout treatment. M4 PT-IP Mobility and Gait Start: 01/14/21 08:31 Freq: Status: Active Protocol: Document 01/16/21 14:43 [place] (Rec: 01/16/21 15:17 [place] [id number]) PT-Transfer Assessment Sit to and From Stand Sit to and from Stand Minimal Assistance,1 Person Assistance,Use of Upper Extremities Equipment Transfer Assistive Device Gait Belt,Front Wheeled Walker Orthotic/Prosthetic Devices or Brace: No Transfers Transfer Destination Chair Transfer Technique Pt ambulated w/ FWW Transfer Ability Level of Assist Moderate Assistance,1 Person Assistance,Use of Upper Extremities Comments Mobility Comments Pt in chair upon arrival from therapy. Min A and cues for sit<>stand w/ FWW. Pt then ambulated ~50 ft w/ FWW and Min A for FWW management and frequent cues to stand upright and use FWW properly. Pt ambulated slowly w/ decreased stride and foot clearance and poor safety awareness requiring cues to avoid obstacles in hallway. Pt returned to room and reported fatigue. Min A for stand<>sit, Mod A for FWW management during transfer. Pt left in chair w/ all needs in reach and spouse in room. Gait Assessment Gait Gait Assistance Required: Minimum Assistance,Moderate Assistance,1 Person Assist Distance (Feet) 50 Assistive Devices Assistive Device Gait Belt,Front Wheeled Walker Gait Deviations General Gait Pattern Decreased Stride Length, Decreased Feet Clearance, Flexed Trunk Factors Limiting Gait Function Factors Limiting Gait Function Decreased Activity Tolerance, Decreased Strength,Difficulty Following Directions, Incoordination,Pain,Poor Balance,Poor Safety Awareness Comments Gait Comments Please refer to mobility section for details. PT-Balance Assessment Sitting Balance and Reactions Static Sitting Balance Ability Fair Dynamic Sitting Balance Ability Fair Standing Balance and Reactions Static Standing Balance Ability Fair Dynamic Standing Balance Ability Poor Device Used FWW M5 PT-IP Objective Assessments Start: 01/14/21 08:31 Freq: Status: Active Protocol: Document 01/14/21 09:40 MB (Rec: 01/14/21 10:34 MB [id number]) Orientation Orientation/Cognition Level of Alertness Lethargic Orientation Name,Birthday Safety Awareness Decreased Safety Awareness Memory Description Short Term Impaired Comments Pt is very lethargic after pain medication this morning. Gross Range of Motion Upper Extremity ROM Impairments All range and MMT limited d/t lethargy Strength Comments Strength Comments Pt is able to perform full range LAQ B sitting as well as full DF and great toe extension. With PT pushing for MMT, right knee extension and DF is weaker than the left Sensation Assessment Comments Sensation Comments Cannot test d/t lethargy this a.m. M6 PT-IP Treatment Start: 01/14/21 08:31 Freq: Status: Active Protocol: Document 01/16/21 14:43 [place] (Rec: 01/16/21 15:17 [place] [id number]) Physical Therapy Treatment Education Education Provided Precautions,Post-Op Packet, Safety M7 PT-IP Assessment and Plan Start: 01/14/21 08:31 Freq: Status: Active Protocol: Document 01/16/21 14:43 [place] (Rec: 01/16/21 15:17 [place] [id number]) PT Summary Assessment and Plan Potential Rehabilitation Potential Fair Status of Condition at Evaluation Evolving Summary Impairments Pain,ROM,Strength,Balance, Cognition,Bed Mobility, Transfers,Gait,Activity Tolerance Progress Towards Goals Progressing Toward Goals,Slow Progress due to Activity Tolerance,Slow Progress - Other Assessment Summary Pt requiring Min A for sit<> Stand, Min A for 50 ft ambulation w/ FWW, and Mod A for transfers. She requires frequent verbal and tactile cues for FWW management and obstacle avoidance while walking in hallway and cues for hand placement and sequencing when sit<>stand. She continues to be a high fall risk due to weakness, poor safety awareness, improper use of FWW and will require SNF to improve strength and functional mobility. Goals Bed Mobility Goal Independent Transfer Goal Standby Assistance Gait Goal Standby Assistance Gait Distance 100 Other Goals Pt will ascend and descend 2 steps with RW and CGA to allow safe home entry at d/c. Days to Meet Goals 5 Frequency of Treatment Frequency Of Treatment Twice a Day Treatment Plan Physical Therapy Treatment Plan Bed Mobility Training,Transfer Training,Gait Training, Therapeutic Exercise,Balance Retraining,Post Op Education, Discharge Planning,Hot or Cold Pack,Neuromuscular Re-ed, Coordination Retraining,Manual Therapy Other Recommendations and Next Treatment bed mob, transfers, gait if Focus able. Precautions Lumbar Precautions Log Roll,No Twisting,Limit Bending,Lifting Restriction of 10 lbs,Gait Belt above Incisional Area Recommendations To Nursing Amount of Assist Needed 1 Person Assist Discharge Recommendations PT Discharge Recommendations SNF Rehab Transportation Needs at Discharge Wheelchair/Cabulance
--- NOTE | 2021-01-16 15:06 | CM.DPNOTE ---
DCP Cont Placed calls to [facility], [facility] and [facility] per spouse's request to help initiate the process for securing in home care givers. Left spouse's contact information for further communication about cg availability and cost Left the Senior Resource Guide for spouse Hayley in patient's room. Received note from [facility] that patient/spouse have decided on SNF upon DC; home w/spouse does not appear to be a safe DC option at this time Plan: DC to [facility] via w/c expected in the next 24-48 hrs or upon medical clearance. Updated COVID swab needed. PASRR completed JW
[2021-01-16 16:47] LABS: COVID19 -Nasal RAPID Negative (Negative)
[2021-01-16] MEDS: ATORVASTATIN 20 MG TABLET PO (20:57)
[2021-01-16] MEDS: BUSPIRONE 5 MG TABLET 30 MG PO (20:57)
[2021-01-16] MEDS: SERTRALINE 50 MG TABLET 150 MG PO (20:57)
[2021-01-16] MEDS: SENNOSIDES 8.6 MG TABLET 17.2 MG PO (20:57)
[2021-01-17] MEDS: ACETAMINOPHEN 325 MG TABLET 650 MG PO ×2 (00:09→08:14)
[2021-01-17] MEDS: hydrOXYzine pamoate 25 MG CAPSULE PO (01:12)
--- NOTE | 2021-01-17 01:20 | PC.NURSE ---
Late entry: When this RN gave pt 2100 meds, pt poured the medications out of the cup and into hand, when trying to put the medication in her mouth the patient tossed them from her hand and only some medications made it. Two 5mg Buspar pills were still in the patients hand, a 50mg Zoloft fell into her lap, and a 40mg Protonix and 8.6mg Senna fell onto the floor. This RN picked up the medications that were on the floor and placed them onto the bedside table, the patient placed the pill in her lap into her hand, and this RN placed those medications back into the cup on the bedside table. Patient was asked if she wanted new pills for the ones that fell onto the floor or if she wanted to take any of the medication that was left at all. Patient stated that she would take them and no new ones were needed. This RN was standing at the bedside and the patient was still not taking the medication. When asked if she needed anything to help take them, the patient stated that she did not like the taste and just needed a minute to take them. This RN gave the patient a few min while standing in the doorway on the COW. Patient was still not taking the medication so this RN offered crackers or a snack to take with them. Patient declined but stated she wanted to take them later. Medication was removed from patients room and this RN gave the patient some time. Patient kept declining the medications and at 0030, this RN wasted the medications and edited the patients chart with correct doses taken.
[2021-01-17 02:00] VITALS: BP 125/50; PULSE 76; RESP 18; TEMP 36.8; O2SAT 94
[2021-01-17 06:00] VITALS: BP 139/52; PULSE 76; RESP 16; TEMP 36.9; O2SAT 95
[2021-01-17] MEDS: LEVOTHYROXINE 88 MCG TABLET PO (06:10)
[2021-01-17] MEDS: DOCUSATE 100 MG CAPSULE PO (08:14)
[2021-01-17] MEDS: MAGNESIUM HYDROXIDE 30 ML UDC PO (08:14)
[2021-01-17 09:37] VITALS: BP 141/73; PULSE 89; RESP 16; TEMP 37.2; O2SAT 95
--- NOTE | 2021-01-17 10:24 | PM.PN.1 ---
Exam Vital Signs (past 8 hours): - 01/17/21 06:00 01/17/21 09:37 Temperature 98.5 F 98.9 F Pulse Rate 76 89 Respiratory Rate 16 16 Blood Pressure 139/52 L 141/73 H Pulse Oximetry 95 95 Oxygen Delivery Method Room Air Oxygen Flow Rate 0 Objective Labs Result Diagrams: 01/15/21 08:30 01/15/21 08:30 Labs: Laboratory Results - last 24 hr 01/16/21 16:00 SARS-CoV-2 (PCR) Negative PFSH Medical History ADHD Anxiety Asthma BCC (basal cell carcinoma) Bradycardia Chronic back pain Chronic neck pain CKD (chronic kidney disease), stage III Depression Dermatitis Ectopic beats Fragile skin GERD (gastroesophageal reflux disease) Hearing loss Hemorrhoids Hepatitis C HLD (hyperlipidemia) Hypothyroidism Osteoarthritis Rheumatic fever (~194) RLS (restless legs syndrome) SCC (squamous cell carcinoma) (~10/2018) Spinal stenosis Vertigo Surgical History History of arthroplasty of right knee History of carpal tunnel release Hx of abdominal surgery Hx of appendectomy Hx of bilateral cataract extraction Hx of fusion of cervical spine (02/01/19) Hx of hemorrhoidectomy Hx of knee surgery Hx of kyphoplasty (01/29/20) Hx of shoulder surgery 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 Slow to progress with PT. Plan for discharge to SNF today. Will d/c on oral meds for UTI. Time Spent With Patient Critical Care time: I spent a total of [] minutes of critical care time on this patient's care today; this time is exclusive of procedural time. Quality VTE Deep Vein Thrombosis/Pulmonary Embolism Present on Admission: No
--- NOTE | 2021-01-17 10:54 | PT.IPTN ---
Current Diagnoses Spondylolisthesis, lumbar region (01/13/21) Spinal stenosis, lumbar region with neurogenic claudication (01/13/21) Surgery Performed Operation Date: 01/13/21 07:45 Actual Procedures p L2-3 hemilaminectomy, L4-5 TLIF with posterior instrumentation, Transforminal Interbody Fusion(Not Applicable) - Jeff Horn MD Physical Therapy Treatment Note M2 PT-IP Current Condition Start: 01/14/21 08:31 Freq: Status: Discharge Protocol: Document 01/15/21 11:42 SP (Rec: 01/15/21 14:00 SP [id number]) Physical Therapy Current Condition Current Condition Evaluation Date 01/14/21 Treatment Diagnosis Decreased mobility s/p TLIF Onset Date 01/13/2021 M3 PT-IP Subjective Start: 01/14/21 08:31 Freq: Status: Discharge Protocol: Document 01/17/21 12:35 SAK (Rec: 01/17/21 12:45 SAK [id number]) Subjective Physical Therapy Visit Type Type Treatment Note Visit Start Time 10:35 Visit Stop Time 10:54 Total Visit Minutes 19 Number of COAT JOINER LOCKSTITCH Visits 0 Physical Therapy Visit Comments Patient Comments Patient willing to participate with PT, states will be going to rehab today. Spouse at bedside and attentive. M4 PT-IP Mobility and Gait Start: 01/14/21 08:31 Freq: Status: Discharge Protocol: Document 01/17/21 12:35 SAK (Rec: 01/17/21 12:45 SAK [id number]) PT-Bed Mobility Assessment Rolling Type of Rolling Roll to Left Level of Assist Moderate Assistance,1 Person Assistance Supine to Sit Supine to Sit Moderate Assistance Scooting Scooting to Edge of Bed Moderate Assistance PT-Transfer Assessment Sit to and From Stand Sit to and from Stand Minimal Assistance,1 Person Assistance,Use of Upper Extremities Equipment Transfer Assistive Device Gait Belt,Front Wheeled Walker Orthotic/Prosthetic Devices or Brace: No Transfers Transfer Destination Chair Transfer Technique Pt ambulated w/ FWW Transfer Ability Level of Assist Moderate Assistance,1 Person Assistance,Use of Upper Extremities Gait Assessment Gait Gait Assistance Required: Minimum Assistance,1 Person Assist Distance (Feet) 70 Assistive Devices Assistive Device Gait Belt,Front Wheeled Walker Gait Deviations General Gait Pattern Decreased Stride Length, Decreased Feet Clearance, Flexed Trunk Factors Limiting Gait Function Factors Limiting Gait Function Decreased Activity Tolerance, Decreased Strength,Difficulty Following Directions, Incoordination,Pain,Poor Balance,Poor Safety Awareness Comments Gait Comments Patient requires moderate cues for upright posture, staying close to walker, and not twisting. PT-Balance Assessment Sitting Balance and Reactions Static Sitting Balance Ability Fair Dynamic Sitting Balance Ability Fair Standing Balance and Reactions Static Standing Balance Ability Fair Dynamic Standing Balance Ability Poor Device Used FWW M5 PT-IP Objective Assessments Start: 01/14/21 08:31 Freq: Status: Discharge Protocol: Document 01/14/21 09:40 MB (Rec: 01/14/21 10:34 MB [id number]) Orientation Orientation/Cognition Level of Alertness Lethargic Orientation Name,Birthday Safety Awareness Decreased Safety Awareness Memory Description Short Term Impaired Comments Pt is very lethargic after pain medication this morning. Gross Range of Motion Upper Extremity ROM Impairments All range and MMT limited d/t lethargy Strength Comments Strength Comments Pt is able to perform full range LAQ B sitting as well as full DF and great toe extension. With PT pushing for MMT, right knee extension and DF is weaker than the left Sensation Assessment Comments Sensation Comments Cannot test d/t lethargy this a.m. M6 PT-IP Treatment Start: 01/14/21 08:31 Freq: Status: Discharge Protocol: Document 01/17/21 12:35 SAK (Rec: 01/17/21 12:45 SAK [id number]) Physical Therapy Treatment Education Education Provided Precautions,Safety M7 PT-IP Assessment and Plan Start: 01/14/21 08:31 Freq: Status: Discharge Protocol: Document 01/17/21 12:35 SAK (Rec: 01/17/21 12:45 SAK [id number]) PT Summary Assessment and Plan Potential Rehabilitation Potential Fair Status of Condition at Evaluation Evolving Summary Impairments Pain,ROM,Strength,Balance, Cognition,Bed Mobility, Transfers,Gait,Activity Tolerance Progress Towards Goals Progressing Toward Goals,Slow Progress due to Activity Tolerance,Slow Progress - Other Assessment Summary Patient improved 20' with ambulation, fatigued after treatment. Patient assisted to reclining position in bedside chair, advised her and spouse no sitting greater than 1 hour. Goals Bed Mobility Goal Independent Transfer Goal Standby Assistance Gait Goal Standby Assistance Gait Distance 100 Other Goals Pt will ascend and descend 2 steps with RW and CGA to allow safe home entry at d/c. Days to Meet Goals 5 Frequency of Treatment Frequency Of Treatment Twice a Day Treatment Plan Physical Therapy Treatment Plan Bed Mobility Training,Transfer Training,Gait Training, Therapeutic Exercise,Balance Retraining,Post Op Education, Discharge Planning,Hot or Cold Pack,Neuromuscular Re-ed, Coordination Retraining,Manual Therapy Other Recommendations and Next Treatment bed mob, transfers, gait if Focus able. Precautions Lumbar Precautions Log Roll,No Twisting,Limit Bending,Lifting Restriction of 10 lbs,Gait Belt above Incisional Area Recommendations To Nursing Amount of Assist Needed 1 Person Assist Discharge Recommendations PT Discharge Recommendations SNF Rehab Transportation Needs at Discharge Wheelchair/Cabulance
--- NOTE | 2021-01-17 11:40 | CM.DPC ---
DCP Discharge SNF Per Ortho MD, pt is medically stable to d/c to SNF today for ongoing rehab and no identified barriers to discharge. SW called [facility] and confirmed they can accept today and will contact their transport team to set up time but aiming for around [phone] today. Confirmed no updated COVID swab needed as one was completed yesterday around 1600. Requested d/c packet be faxed to [facility] w/e nursing station fax. SW met bedside with pt and family member and updated on above and they are agreeable with d/c to [facility] today. Provided copy of Medicare Rights and pt is agreeable with d/c to SNF today. [facility] faxed [facility], med rec, scripts, d/c summary, orders, covid neg swab, COVID vax status card to [facility] RN station to review for plan of d/c around 1230. [facility] updated RN, LOG MARKER, mill set up. Plan: Patient to d/c today to [facility] rehab around 1230 via facility van prior to safe return home. Brenda Alvarez MSW
--- NOTE | 2021-01-17 12:26 | PC.NURSE ---
Day shift: Report given to RN at [facility] at approx 1225.
--- NOTE | 2021-01-17 12:27 | PC.NURSE ---
Day shift: Pt left unit and headed to [facility] at approx 1230 today. Dressing remains CDI. CMS intact w/ PPP. VS WNL. RA 95%. No nausea. Pain controlled w/ Tylenol per APR. Pt has all personal belongings. [facility] packet given to transport person.
== END 2021-01-17 12:32 | DRG 454 ==
PROVIDERS: Physician Assistant; Admitting Provider Orthopaedic Surgery Orthopaedic Surgery of the Spine; PCP Family Medicine; Referring Provider Orthopaedic Surgery Orthopaedic Surgery of the Spine; Visit Provider Orthopaedic Surgery Orthopaedic Surgery of the Spine
PROC: 0SG00AJ Fusion of Lumbar Vertebral Joint with Interbody Fusion Device, Posterior Approach, Anterior Column, Open Approach (ICD-10-PCS; principal; 2021-01-13 07:45)
DX: M48.062 Spinal stenosis, lumbar region with neurogenic claudication (principal); N39.0 Urinary tract infection, site not specified; M43.16 Spondylolisthesis, lumbar region; F32.A Depression, unspecified; Z20.822 Contact with and (suspected) exposure to COVID-19
CPT/HCPCS: 36415; 72100; 76000; 80048; 81001; 85014; 85018; 85027; 87086; 87635; 97110; 97116; 97161; 97165; 97530; 97535; C1776; C9803; C9290; J0171; J0330; J0690; J0696; J1100; J1170; J2250; J2405; J2704; J3010

== ENCOUNTER → 2021-04-15 16:22 | Outpatient (CLI) | payer MEDICARE, BC, SELFPAY ==
[2021-01-13 13:07] VITALS: BMI 29.6
--- NOTE | 2021-04-15 16:24 | DI.MRI.S_ITS ---
PROCEDURE: MR HEAD/BRAIN WO CON INDICATIONS: Headache, unspecified TECHNIQUE: Non-contrast axial T1 spin echo, axial T2 fast spin echo, sagittal and axial FLAIR, coronal T2 fast spin echo, axial gradient echo, axial diffusion and ADC through the brain. COMPARISON: [facility], MR, MR BRAIN WITH/WITHOUT CONTRAST, 05/12/2020, 13:48. FINDINGS: Image quality: Excellent. CSF spaces: Ventricles appear symmetric in size and shape. Basal cisterns are patent. No extra-axial fluid collections. Brain: No intracranial bleeds or mass effects. There is moderate cerebral volume loss for age. There are moderate pontine, periventricular and deep white matter chronic small vessel ischemic changes. Brainstem appears normal. Diffusion-weighted images show no acute ischemic insults. No chronic ischemic insults. Normal intravascular flow voids are present. Skull and face: Calvarial bone marrow is normal in signal. Orbits are normal. Sinuses: Sinuses and mastoids are clear. IMPRESSION: 1. No acute intracranial disease process. 2. No abnormal intracranial mass or mass effect. 3. . No intracranial hemorrhage. 4. Moderate, diffuse cerebral volume loss. 5. Moderate pontine, periventricular and subcortical white matter chronic microvascular ischemic change. Dictated by: Barbara Ribeiro MD, PhD on 04/15/2021 at 18:02 Approved by: Barbara Ribeiro MD, PhD on 04/15/2021 at 18:05
== END ==
PROVIDERS: PCP Family Medicine; Referring Provider Nurse Practitioner Family; Visit Provider Nurse Practitioner Family
DX: R51.9 Headache, unspecified (principal); R42 Dizziness and giddiness; R55 Syncope and collapse; R29.6 Repeated falls; S06.0X0A Concussion without loss of consciousness, initial encounter
CPT/HCPCS: 70551

== ENCOUNTER 2021-07-06 15:07 | Emergency (ER) | payer MEDICARE, BC, SELFPAY ==
[2021-01-13 13:07] VITALS: BMI 29.6
[2021-07-06] VITALS (13 sets, daily range): BP systolic 124–151; BP diastolic 58–70; PULSE 74–91; RESP 18–26; TEMP 36.3; O2SAT 94–99; BMI 28.3
--- NOTE | 2021-07-06 15:42 | DI.RAD.S_ITS ---
PROCEDURE: XR CHEST 1V INDICATIONS: chest pain TECHNIQUE: One view of the chest was acquired. COMPARISON: None. FINDINGS: Surgical changes and devices: None. Lungs and pleura: Lungs are clear. No pleural effusions or pneumothorax. Mediastinum: Mediastinal contours appear normal. Heart size is normal. Bones and chest wall: No suspicious bony lesions. Healed posterior right rib fractures are noted. Overlying soft tissues appear unremarkable. IMPRESSION: No acute cardiopulmonary findings. Dictated by: Tabby Valencia M.D. on 07/06/2021 at 16:23 Approved by: Tabby Valencia M.D. on 07/06/2021 at 16:24
[2021-07-06 15:54] LABS: Add Manual Diff / Slide Review NO; Basophils Absolute Auto 100 /uL (0-100); Eosinophils Absolute Auto 300 /uL (0-450); Hematocrit 33.5 % (36-46); Hemoglobin 11.5 g/dL (12.0-16.0); Lymphocytes Absolute Auto 1800 /uL (1100-4500); Lymphocytes Percent Auto 29.9 % (25-40); Mean Corpuscular HGB Conc 34.3 % (30-36); Mean Corpuscular Hemoglobin 33.1 PG (26-34); Mean Corpuscular Volume 96.6 fL (80-100); Monocytes Absolute Auto 400 /uL (0-900); Neutrophils Absolute Auto 3500 /uL (1500-7000); Neutrophils Percent Auto 58.1 % (50-75); Platelet Count 181 X10^3/uL (150-400); Red Blood Cell Count 3.47 X10^6/uL (4.0-5.2); Red Cell Distribution Width 13.5 % (11.6-14.8)
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
[2021-07-06 16:08] LABS: Alanine Aminotransferase 20 IU/L (<35); Albumin 4.3 g/dL (3.5-5.0); Albumin Globulin Ratio 1.6 (1.0-2.8); Alkaline Phosphatase 102 U/L (38-126); Aspartate Aminotransferase 28 IU/L (14-36); BUN Creatinine Ratio 16.5 (6-22); Bilirubin Total 0.5 mg/dL (0.2-1.3); Blood Urea Nitrogen 22 mg/dL (7-17); Carbon Dioxide 27 mmol/L (22-32); Chloride 106 mmol/L (98-107); Creatine Kinase 101 U/L (30-135); Estimated Glomerular Filt Rate 40 mL/min (>60); Globulin 2.7 g/dL (1.7-4.1); Glucose 113 mg/dL (80-110); HEMOLYSIS < 15 (0-50); Lipase 62 U/L (23-300); Magnesium 1.9 mg/dL (1.6-2.3); Potassium 4.1 mmol/L (3.4-5.1); Sodium 139 mmol/L (137-145)
[2021-07-06 16:14] LABS: COVID19 -Nasal RAPID Negative (Negative)
[2021-07-06 16:20] LABS: Troponin I < 0.012 ng/mL (0.01-0.034)
[2021-07-06 16:23] LABS: CKMB % Relative Index 1.3 % (1.5-5.0); Creatine Kinase MB 1.31 ng/mL (<2.37)
[2021-07-06 16:53] LABS: NT-proBNP (BNP-Adult 18+) 176 pg/mL (<450)
[2021-07-06] MEDS: ALBUTEROL/IPRATROPIUM 3 ML AMPUL INH ×2 (16:53→17:47)
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
[2021-07-06 17:33] LABS: Appearance Urine UA CLEAR; Bilirubin Urine UA NEGATIVE (NEGATIVE); Color Urine UA YELLOW; Glucose Urine UA NEGATIVE (Negative); Ketones Urine UA NEGATIVE (NEGATIVE); Leukocyte Esterase Urine UA NEGATIVE (NEGATIVE); Nitrite Urine UA NEGATIVE (Negative); Occult Blood Urine UA TRACE-LYSED (Negative); Protein Urine UA NEGATIVE (Negative); Urobilinogen Urine UA 0.2 E.U./dL (0.2)
[2021-07-06 17:56] LABS: Bacteria Urine None Seen; Culture Indicated Urine Cult Not Indicated; RBC Urine None Seen (0-5/HPF); Squamous Epithelial Cell Urine 0-1 /HPF (0-5/HPF); WBC Urine 1-5/HPF (0-5/HPF)
== END 2021-07-06 18:20 | disposition home or self-care (01) ==
PROVIDERS: Emergency Medicine; Emergency Provider Student in an Organized Health Care Education/Training Program; PCP Family Medicine
DX: J45.901 Unspecified asthma with (acute) exacerbation (principal); R07.9 Chest pain, unspecified; Z20.822 Contact with and (suspected) exposure to COVID-19
CPT/HCPCS: 36415; 71045; 80053; 81001; 82550; 82553; 83690; 83735; 83880; 84484; 85025; 87635; 93005; 93010; 94640; 99284; C9803; A9270

== ENCOUNTER 2022-01-04 15:19 | Emergency (ER) | payer MEDICARE, BC, SELFPAY ==
[2021-01-13 13:07] VITALS: BMI 29.6
[2022-01-04] VITALS (11 sets, daily range): BP systolic 130–154; BP diastolic 63–77; PULSE 67–80; RESP 16–25; TEMP 36.4–37.2; O2SAT 95–99; BMI 28.5
--- NOTE | 2022-01-04 16:34 | DI.RAD.S_ITS ---
PROCEDURE: XR CHEST 1V INDICATIONS: chest pain TECHNIQUE: One view of the chest was acquired. COMPARISON: [facility], CR, XR CHEST 1V, 07/06/2021, 15:50. FINDINGS: Surgical changes and devices: None. Lungs and pleura: Low lung volumes. Mildly prominent interstitium. Mild right basal opacity. Mediastinum: Mediastinal contours appear normal. Heart size is normal. Bones and chest wall: Old rib deformities. IMPRESSION: Low lung volumes. Mildly prominent interstitium could represent vascular crowding versus edema. There is also a mild right lung base opacity that could represent atelectasis or early airspace disease. Consider future imaging surveillance to assess for resolution. Dictated by: Prashant Landin M.D. on 01/04/2022 at 18:48 Approved by: Prashant Landin M.D. on 01/04/2022 at 18:49
[2022-01-04 17:20] LABS: Influenza A - CEPHEID Flu A NEGATIVE (NEGATIVE); Influenza B - CEPHEID Flu B NEGATIVE (NEGATIVE); Respiratory Syncytial Virus Negative (Negative)
[2022-01-04 17:21] LABS: COVID-19 CEPHEID 4-PLEX PCR Negative (Negative)
[2022-01-04 17:24] LABS: Add Manual Diff / Slide Review NO; Basophils Absolute Auto 0 /uL (0-100); Basophils Percent Auto 0.6 % (0-2); Eosinophils Absolute Auto 300 /uL (0-450); Eosinophils Percent Auto 4.6 % (2-4); Hematocrit 35.7 % (36-46); Hemoglobin 12.3 g/dL (12.0-16.0); Lymphocytes Absolute Auto 1800 /uL (1100-4500); Lymphocytes Percent Auto 29.7 % (25-40); Mean Corpuscular HGB Conc 34.3 % (30-36); Mean Corpuscular Hemoglobin 33.6 PG (26-34); Mean Corpuscular Volume 97.9 fL (80-100); Monocytes Absolute Auto 300 /uL (0-900); Monocytes Percent Auto 4.3 % (3-14); Neutrophils Absolute Auto 3700 /uL (1500-7000); Neutrophils Percent Auto 60.8 % (50-75); Platelet Count 171 X10^3/uL (150-400); Red Blood Cell Count 3.65 X10^6/uL (4.0-5.2); Red Cell Distribution Width 13.3 % (11.6-14.8); White Blood Cell Count 6.1 X10^3/uL (4.5-11.0)
[2022-01-04 17:31] LABS: Alanine Aminotransferase 26 IU/L (<35); Albumin 4.5 g/dL (3.5-5.0); Albumin Globulin Ratio 1.6 (1.0-2.8); Alkaline Phosphatase 114 U/L (38-126); Aspartate Aminotransferase 28 IU/L (14-36); BUN Creatinine Ratio 17.4 (6-22); Bilirubin Total 0.4 mg/dL (0.2-1.3); Blood Urea Nitrogen 25 mg/dL (7-17); Calcium 9.2 mg/dL (8.4-10.2); Carbon Dioxide 29 mmol/L (22-32); Chloride 105 mmol/L (98-107); Creatine Kinase 59 U/L (30-135); Estimated Glomerular Filt Rate 37 mL/min (>60); Globulin 2.9 g/dL (1.7-4.1); Glucose 111 mg/dL (80-110); HEMOLYSIS < 15 (0-50); Lipase 78 U/L (23-300); Potassium 3.7 mmol/L (3.4-5.1); Sodium 141 mmol/L (137-145); Total Protein 7.4 g/dL (6.3-8.2)
[2022-01-04 17:43] LABS: Troponin I < 0.012 ng/mL (0.01-0.034)
[2022-01-04 19:43] LABS: Appearance Urine UA CLEAR; Bilirubin Urine UA NEGATIVE (NEGATIVE); Color Urine UA YELLOW; Glucose Urine UA NEGATIVE (Negative); Ketones Urine UA NEGATIVE (NEGATIVE); Leukocyte Esterase Urine UA TRACE (NEGATIVE); Nitrite Urine UA NEGATIVE (Negative); Occult Blood Urine UA TRACE-LYSED (Negative); Protein Urine UA NEGATIVE (Negative); Specific Gravity Urine UA 1.015 (1.000-1.035); Urobilinogen Urine UA 0.2 E.U./dL (0.2)
[2022-01-04 19:50] LABS: Bacteria Urine Occasional (0-1); Culture Indicated Urine Specimen Cultured; RBC Urine 0-1/HPF (0-5/HPF); Squamous Epithelial Cell Urine 0-1 /HPF (0-5/HPF); WBC Urine 1-5/HPF (0-5/HPF)
--- NOTE | 2022-01-04 22:01 | ED_ITS ---
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 She is noted today that it was much worse than usual. There are no focal findings. She says that she notes that she can not quite feel her legs under her normally. She says she is had detailed imaging and neurology consultation and other consultations as well trying to elucidate the etiology of the symptoms. She says that she had very significant family history of progressive peripheral neuropathy without specific diagnosis previously. She denies chest pain, cough, fever, shortness of breath, abdominal pain, nausea, vomiting. She does endorse some recent diarrhea. Related Data Home Medications Medication Instructions Recorded Confirmed albuterol sulfate 90 mcg/actuation 2 puff inhalation Q4-6H PRN 09/17/18 10/18/21 aerosol inhaler (ProAir HFA) Shortness Of Breath simvastatin 40 mg tablet 40 mg PO BEDTIME 09/17/18 10/18/21 esomeprazole magnesium 40 mg 40 mg PO BEDTIME 01/30/19 10/18/21 capsule,delayed release (Nexium) acetaminophen 500 mg tablet 500 - 1,000 mg PO Q6H PRN Pain 01/04/21 10/18/21 (Acetaminophen Extra Strength) albuterol sulfate 2.5 mg/3 mL 2.5 mg inhalation Q4-6H PRN 08/10/21 10/18/21 (0.083 %) solution for nebulization tiotropium bromide 2.5 2 puff inhalation BID 08/10/21 10/18/21 mcg/actuation mist for inhalation (Spiriva Respimat) Previous Rx's Medication Instructions Recorded levothyroxine 88 mcg tablet 0.088 mg PO QAM #90 tabs 08/02/16 sertraline 100 mg tablet 150 mg PO BEDTIME #45 tabs 06/07/19 lorazepam 0.5 mg tablet 0.5 mg PO BID PRN anxiety #20 tabs 01/17/21 buspirone 30 mg tablet See Rx Instructions PO .COMPLEX 10/18/21 #60 tabs Allergies Allergy/AdvReac Type Severity Reaction Status Date / Time bee venom protein (honey bee) Allergy Anaphylaxis Verified 10/18/21 13:00 atorvastatin [ATORVASTATIN] AdvReac Intermediate stomach Verified 10/18/21 13:00 cramps GENERAL ANESTHESIA AdvReac Severe SOMNOLENCE Uncoded 10/18/21 13:00 Review of Systems Review of Systems Narrative: Review of systems is negative other than as noted above. Patient History Medical History (Updated 01/04/22 @ 22:22 by Quinton Martínez MD) ADHD Anxiety Asthma BCC (basal cell carcinoma) Bradycardia Chronic back pain Chronic neck pain CKD (chronic kidney disease), stage III Depression Dermatitis Ectopic beats Fragile skin GERD (gastroesophageal reflux disease) Hearing loss Hemorrhoids Hepatitis C HLD (hyperlipidemia) Hypothyroidism Osteoarthritis Rheumatic fever (~194) RLS (restless legs syndrome) SCC (squamous cell carcinoma) (~10/2018) Spinal stenosis Vertigo Surgical History History of arthroplasty of right knee History of carpal tunnel release Hx of abdominal surgery Hx of appendectomy Hx of bilateral cataract extraction Hx of fusion of cervical spine (02/01/19) Hx of hemorrhoidectomy Hx of knee surgery Hx of kyphoplasty (01/29/20) Hx of shoulder surgery 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 HEAD: Atraumatic. Normocephalic. EYES: Sclera are clear without icterus. Extraocular movements are full. ENT: No rhinorrhea NECK: Supple. Full range of motion. CARDIOVASCULAR: Normal rate and rhythm without murmur gallop or rub. RESPIRATORY: Clear to auscultation. Breath sounds equal bilaterally. No wheezes, rales, or rhonchi. GASTROINTESTINAL: Abdomen soft, non-tender, nondistended. EXTREMITIES: No edema, full range of motion. No obvious trauma. BACK: Normal inspection, no CVA tenderness. NEURO: Nonfocal examination, normal speech, her gait is slow but tandem and narrow based. She is steady on her feet as I walk next to her. SKIN: No rash or erythema of visible areas PSYCH: Normally oriented. Normal range of affect. Appropriate behavior Initial Vital Signs Initial Vital Signs: Vital Signs Temperature 97.6 F 01/04/22 16:25 Pulse Rate 76 01/04/22 16:25 Respiratory Rate 16 01/04/22 16:25 Blood Pressure 152/70 H 01/04/22 16:25 Pulse Oximetry 98 01/04/22 16:25 Oxygen Delivery Method 01/04/22 16:25 Course Orders Ordered: ED Orders 01/04/22 16:30 Covid-19 + FLU A/B + RSV - PCR Stat 01/04/22 16:34 XR chest 1V Stat 01/04/22 16:43 EKG-12 Lead Stat 01/04/22 17:00 Complete Blood Count AUTO DIFF Stat Comprehensive Metabolic Panel Stat Lipase Stat Magnesium Stat Troponin & CK Cardiac Panel Stat Urinalysis and Microscopic Stat Urine Culture Stat Vital Signs Vital signs: Vital Signs - 8 hr 01/04/22 16:25 01/04/22 19:22 01/04/22 19:29 Temperature 97.6 F 99.0 F Pulse Rate 76 80 72 Respiratory Rate 16 22 Blood Pressure 152/70 H 133/63 Pulse Oximetry 98 95 Oxygen Delivery Method Room Air Room Air 01/04/22 19:30 01/04/22 19:31 01/04/22 19:31 Temperature Pulse Rate 72 71 Respiratory Rate 16 19 Blood Pressure 154/70 H Pulse Oximetry 95 95 Oxygen Delivery Method 01/04/22 20:00 01/04/22 20:00 01/04/22 20:30 Temperature Pulse Rate 69 Respiratory Rate 19 Blood Pressure 135/64 136/63 Pulse Oximetry 95 Oxygen Delivery Method 01/04/22 20:30 01/04/22 21:00 01/04/22 21:00 Temperature Pulse Rate 69 71 Respiratory Rate 17 18 Blood Pressure 143/77 H Pulse Oximetry 95 95 Oxygen Delivery Method 01/04/22 21:30 01/04/22 21:31 01/04/22 21:31 Temperature Pulse Rate 67 68 Respiratory Rate 23 25 H Blood Pressure 130/67 Pulse Oximetry 95 95 Oxygen Delivery Method MDM - Dizziness Lab Data Result diagrams: 01/04/22 17:00 01/04/22 17:00 Labs: Lab Results 01/04/22 01/04/22 01/04/22 Range/Units 16:30 17:00 17:00 WBC 6.1 (4.5-11.0) X10^3/uL RBC 3.65 L (4.0-5.2) X10^6/uL Hgb 12.3 (12.0-16.0) g/dL Hct 35.7 L (36-46) % MCV 97.9 (80-100) fL MCH 33.6 (26-34) PG MCHC 34.3 (30-36) % RDW 13.3 (11.6-14.8) % Plt Count 171 (150-400) X10^3/uL Neut % (Auto) 60.8 (50-75) % Lymph % (Auto) 29.7 (25-40) % [place] % (Auto) 4.3 (3-14) % Eos % (Auto) 4.6 H (2-4) % Baso % (Auto) 0.6 (0-2) % Neut # (Auto) 3700 (6245-8946) /uL Lymph # (Auto) 1800 (5780-7766) /uL [place] # (Auto) 300 (0-900) /uL Eos # (Auto) 300 (0-450) /uL Baso # (Auto) 0 (0-100) /uL Sodium 141 (137-145) mmol/L Potassium 3.7 (3.4-5.1) mmol/L Chloride 105 (98-107) mmol/L Carbon Dioxide 29 (22-32) mmol/L BUN 25 H (7-17) mg/dL Creatinine 1.44 H (0.52-1.04) mg/dL Estimated GFR 37 L (>60) mL/min BUN/Creatinine Ratio 17.4 (6-22) Glucose 111 H (80-110) mg/dL Calcium 9.2 (8.4-10.2) mg/dL Magnesium 2.0 (1.6-2.3) mg/dL Total Bilirubin 0.4 (0.2-1.3) mg/dL AST 28 (14-36) IU/L ALT 26 (<35) IU/L Alkaline Phosphatase 114 (38-126) U/L Total Creatine Kinase 59 (30-135) U/L CK-MB (CK-2) TNP CK-MB (CK-2) Rel Index TNP Troponin I < 0.012 (0.01-0.034) ng/mL Total Protein 7.4 (6.3-8.2) g/dL Albumin 4.5 (3.5-5.0) g/dL Globulin 2.9 (1.7-4.1) g/dL Albumin/Globulin Ratio 1.6 (1.0-2.8) Lipase 78 (23-300) U/L Urine Color Urine Appearance Urine pH (4.5-8.0) Ur Specific [place] (1.000-1.035) Urine Protein (Negative) Urine Glucose (UA) (Negative) g/dL Urine Ketones (NEGATIVE) Urine Occult Blood (Negative) Urine Nitrate (Negative) Urine Bilirubin (NEGATIVE) Urine Urobilinogen (0.2) E.U./dL Ur Leukocyte Esterase (NEGATIVE) Urine RBC (0-5/HPF) Urine WBC (0-5/HPF) Ur Squamous Epith Cells (0-5/HPF) Urine Bacteria (None) Ur Culture Indicated? SARS-CoV-2 (PCR) Negative (Negative) Influenza A (RT-PCR) Flu a negative (NEGATIVE) Influenza B (RT-PCR) Flu b negative (NEGATIVE) RSV (PCR) Negative (Negative) 01/04/22 Range/Units 17:00 WBC (4.5-11.0) X10^3/uL RBC (4.0-5.2) X10^6/uL Hgb (12.0-16.0) g/dL Hct (36-46) % MCV (80-100) fL MCH (26-34) PG MCHC (30-36) % RDW (11.6-14.8) % Plt Count (150-400) X10^3/uL Neut % (Auto) (50-75) % Lymph % (Auto) (25-40) % [place] % (Auto) (3-14) % Eos % (Auto) (2-4) % Baso % (Auto) (0-2) % Neut # (Auto) (6887-8816) /uL Lymph # (Auto) (8091-9906) /uL [place] # (Auto) (0-900) /uL Eos # (Auto) (0-450) /uL Baso # (Auto) (0-100) /uL Sodium (137-145) mmol/L Potassium (3.4-5.1) mmol/L Chloride (98-107) mmol/L Carbon Dioxide (22-32) mmol/L BUN (7-17) mg/dL Creatinine (0.52-1.04) mg/dL Estimated GFR (>60) mL/min BUN/Creatinine Ratio (6-22) Glucose (80-110) mg/dL Calcium (8.4-10.2) mg/dL Magnesium (1.6-2.3) mg/dL Total Bilirubin (0.2-1.3) mg/dL AST (14-36) IU/L ALT (<35) IU/L Alkaline Phosphatase (38-126) U/L Total Creatine Kinase (30-135) U/L CK-MB (CK-2) CK-MB (CK-2) Rel Index Troponin I (0.01-0.034) ng/mL Total Protein (6.3-8.2) g/dL Albumin (3.5-5.0) g/dL Globulin (1.7-4.1) g/dL Albumin/Globulin Ratio (1.0-2.8) Lipase (23-300) U/L Urine Color Yellow Urine Appearance Clear Urine pH 5.0 (4.5-8.0) Ur Specific [place] 1.015 (1.000-1.035) Urine Protein Negative (Negative) Urine Glucose (UA) Negative (Negative) g/dL Urine Ketones Negative (NEGATIVE) Urine Occult Blood Trace-lysed (Negative) Urine Nitrate Negative (Negative) Urine Bilirubin Negative (NEGATIVE) Urine Urobilinogen 0.2 (0.2) E.U./dL Ur Leukocyte Esterase Trace H (NEGATIVE) Urine RBC 0-1/hpf (0-5/HPF) Urine WBC 1-5/hpf (0-5/HPF) Ur Squamous Epith Cells 0-1 /hpf (0-5/HPF) Urine Bacteria Occasional (0-1) (None) Ur Culture Indicated? Specimen cultured SARS-CoV-2 (PCR) (Negative) Influenza A (RT-PCR) (NEGATIVE) Influenza B (RT-PCR) (NEGATIVE) RSV (PCR) (Negative) Imaging Data Chest x-ray: Radiologist's Impression: IMPRESSION:? Low lung volumes.? Mildly prominent interstitium could represent vascular crowding versus edema.? There is also a mild right lung base opacity that could represent atelectasis or early airspace disease.? Consider future imaging surveillance to assess for resolution. ? ? ? Dictated by: Prashant Landin M.D. on 01/04/2022 at 18:48 ? ? Approved by: Prashant Landin M.D. on 01/04/2022 at 18:49 ? MDM Narrative Medical decision making narrative: Nonspecific weakness that is gradual and slow. She has impaired renal function but this is relatively stable over many months. She has no hard neurologic findings. Her gait is slow but tandem a narrow based. She looks clinically well. She has normal vital signs. I do not think further workup in the ED here as indicated. I recommend close outpatient follow-up with her primary care doctor. Discharge Plan Departure Patient Disposition: Home Clinical Impression: Gait disturbance Activity Restrictions/Additional Instructions: No immediately dangerous cause for your trouble walking and weakness is identified here. I strongly encouraged her to follow-up with a primary care provider who can help Knowles you through this very difficult situation. Doctors I recommend include: Ronn Craig at [facility] [place] Juana Galvan in [place] Felipe Maciel in [place]. Prescriptions: No Action albuterol sulfate [ProAir HFA] 90 mcg/actuation HFA aerosol inhaler 2 puff INHALATION Q4-6H PRN (Reason: Shortness Of Breath) simvastatin 40 mg tablet 40 mg PO BEDTIME albuterol sulfate 2.5 mg /3 mL (0.083 %) solution for nebulization 2.5 mg inhalation Q4-6H PRN Label Comments: EMPTY THE CONTENTS OF ONE(1) VIAL INTO NEBULIZER CUP AND INHALE VIA NEB ULIZATION EVERY FOUR(4) HOURS NEEDED FOR SHORTNESS OF BREATH OR WHEEZING Spiriva Respimat 2.5 mcg/actuation mist 2 puff inhalation BID buspirone 30 mg tablet See Rx Instructions PO .COMPLEX Qty: 60 0RF Rx Instructions: orally; Continue 30mg QHS. On 10/19/21, start 15mg QAM for 2 weeks. If no side effects after 2 weeks, ok to increase to 30mg BID levothyroxine 88 MCG tablet 0.088 mg PO QAM Qty: 90 0RF sertraline 100 mg tablet 150 mg PO BEDTIME Qty: 45 0RF esomeprazole magnesium [Nexium] 40 MG capsule,delayed release(DR/EC) 40 mg PO BEDTIME acetaminophen [Acetaminophen Extra Strength] 500 mg Tablet 500 - 1,000 mg PO Q6H PRN (Reason: Pain) lorazepam 0.5 mg tablet 0.5 mg PO BID PRN (Reason: anxiety) Qty: 20 0RF Referrals: Gabriele Rao MD [Primary Care Provider] -
== END 2022-01-04 22:37 | disposition home or self-care (01) ==
PROVIDERS: Emergency Medicine; Emergency Provider Family Medicine Addiction Medicine; PCP Family Medicine
DX: R26.9 Unspecified abnormalities of gait and mobility (principal); R07.9 Chest pain, unspecified; Z20.822 Contact with and (suspected) exposure to COVID-19
CPT/HCPCS: 0241U; 36415; 71045; 80053; 81001; 82550; 83690; 83735; 84484; 85025; 87086; 93005; 99284

== ENCOUNTER → 2022-02-23 12:49 | Outpatient (CLI) | payer MEDICARE, BC, SELFPAY ==
[2021-01-13 13:07] VITALS: BMI 29.6
--- NOTE | 2022-02-23 | DI.MRI.S_ITS ---
PROCEDURE: MR LUMBAR SPINE WO CON INDICATIONS: Radiculopathy, lumbar region TECHNIQUE: Noncontrast sagittal T1 spin echo and T2 fast echo, sagittal STIR, and T2 fast spin echo through the lumbar spine. In cases with scoliosis, additional coronal T2 fast spin echo may be performed. COMPARISON: [facility], MR, MR BRAIN WITH/WITHOUT CONTRAST, 05/12/2020, 13:48. [facility], MR, MR LUMBAR SPINE WITHOUT CONTRAST, 12/24/2018, 18:50. [facility], MR, MR LUMBAR SPINE WO CON, 01/21/2020, 13:20. [facility], MR, MR LUMBAR SPINE WITHOUT CONTRAST, 11/10/2020, 16:29. [facility], MR, MR LUMBAR SPINE WO CON, 03/18/2020, 13:56. [facility], CR, XR LUMBAR SPINE 2-3V, 01/13/2021, 11:09. FINDINGS: Image quality: There is artifact associated with the metallic hardware. Alignment and Curvature: Mild dextroconvex scoliotic curvature is seen. Bone Marrow: Marrow is of normal overall signal. No acute vertebral body compression fractures. Prior fracture of L3 can be seen, with vertebroplasty cement. Spinal Cord: Conus medullaris terminates at the L1 level. Visualized cord demonstrates normal signal and size. Paraspinous Soft Tissues: No paravertebral masses. T11-T12: Moderate loss of disc height is seen. Loss of disc signal is seen. Mild generalized disc bulge is seen. No significant neural foraminal or central canal narrowing can be seen. No significant change from the prior. T12-L1: Moderate loss of disc height is seen. Loss of disc signal is seen. Reactive marrow endplate changes are seen, which are hyperintense on T1-weighted and T2-weighted imaging and most consistent with fatty metaplasia (Modic type II changes). Moderate disc bulge is seen, which is eccentric to the right. Minimal central canal narrowing is seen. When comparison is made with the prior images, these findings are similar. L1-L2: Moderate loss of disc height is seen. Loss of disc signal is seen. Moderate generalized disc bulge is seen. Posteriorly projected endplate osteophytes are seen. Moderate facet joint hypertrophy is seen. There is moderate right-sided and at least moderate left-sided neural foraminal narrowing. There is a degree of compression seen upon the exiting left L2 nerve root. Moderate central canal narrowing is seen. Stable from the prior study. L2-L3: Mild loss of disc height is seen. Loss of disc signal is seen. Moderate disc bulge is seen, which is eccentric to the right. Posteriorly projected endplate osteophytes are seen. Moderate facet joint hypertrophy is seen. Associated hypertrophy of the ligamentum flavum can be seen. There is moderate left-sided and mild right-sided neural foraminal narrowing. At least moderate central canal narrowing is seen, as on series 6, image 17. When comparison is made with the prior images, these findings are similar. L3-L4: Mild loss of disc height is seen. Loss of disc signal is seen. Moderate generalized disc bulge is seen. There is a superimposed central disc protrusion. Moderate facet joint hypertrophy is seen. There is mild left-sided and moderate right-sided neural foraminal narrowing. Moderate central canal narrowing is seen. When comparison is made with the prior images, these findings are similar. L4-L5: Postoperative changes are seen, with bilateral pedicle screws and vertical fixation rods. There is a disc spacer seen. Moderate generalized disc bulge is seen. There is a superimposed central disc protrusion. At least moderate facet hypertrophy can be seen. Mild to moderate bilateral neural foraminal narrowing can be seen. Mild to moderate central canal narrowing can be seen. When comparison is made with the prior images, these findings are similar. L5-S1: The disc height is well-preserved. Loss of disc signal is seen at this level. Mild to moderate disc bulge is seen. Moderate facet joint hypertrophy is seen. Moderate bilateral neural foraminal narrowing is seen. Moderate central canal narrowing is seen. When comparison is made with the prior images, these findings are similar. IMPRESSION: Multiple levels of lumbar spine degenerative change are seen, which are not significantly changed compared to the 2020 MRI. Prior L3 fracture, with vertebroplasty cement. L4-L5 postoperative change. Dictated by: Thompson Loomis M.D. on 02/23/2022 at 14:54 Approved by: Thompson Loomis M.D. on 02/23/2022 at 15:02
== END ==
PROVIDERS: PCP Family Medicine; Referring Provider Physical Medicine & Rehabilitation; Visit Provider Physical Medicine & Rehabilitation
DX: M47.26 Other spondylosis with radiculopathy, lumbar region (principal); M47.27 Other spondylosis with radiculopathy, lumbosacral region
CPT/HCPCS: 72148

== ENCOUNTER → 2023-03-31 14:38 | Outpatient (CLI) | payer MEDICARE, BC, SELFPAY ==
[2022-07-20 09:41] VITALS: BMI 29.6
[2023-03-31 16:03] LABS: Creatinine Urine Random 106.6 mg/dL; Protein (Total) Urine Random 8 mg/dL (0-12); Protein Creatinine Ratio Urine 0.07 GRAM/24H
[2023-03-31 16:33] LABS: BUN Creatinine Ratio 15.8 (6-22); Blood Urea Nitrogen 23 mg/dL (7-17); Calcium 9.3 mg/dL (8.4-10.2); Carbon Dioxide 26 mmol/L (22-32); Chloride 107 mmol/L (98-107); Estimated Glomerular Filt Rate 36 mL/min (>60); Glucose 83 mg/dL (80-110); HEMOLYSIS < 15 (0-50); Potassium 3.9 mmol/L (3.4-5.1); Sodium 141 mmol/L (137-145)
[2023-03-31 16:38] LABS: Hematocrit 33.1 % (36-46); Hemoglobin 11.5 g/dL (12.0-16.0)
== END ==
PROVIDERS: Family Provider Family Medicine; Referring Provider Student in an Organized Health Care Education/Training Program; Visit Provider Student in an Organized Health Care Education/Training Program
DX: N05.9 Unspecified nephritic syndrome with unspecified morphologic changes (principal); D64.9 Anemia, unspecified; R80.9 Proteinuria, unspecified
CPT/HCPCS: 36415; 80048; 82570; 84156; 85014; 85018

== ENCOUNTER 2023-06-20 09:45 | Outpatient (RCR) | payer MEDICARE, BC, SELFPAY ==
[2022-07-20 09:41] VITALS: BMI 29.6
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
--- NOTE | 2023-04-27 18:25 | PT.OPPOC ---
Physical, Occupational & Speech Therapy At [facility] Current Diagnoses Other chronic pain (04/27/23) Cervicalgia (04/27/23) Low back pain, unspecified (04/27/23) Muscle weakness (generalized) (04/27/23) Difficulty in walking, not elsewhere classified (04/27/23) Unsteadiness on feet (04/27/23) Abnormal posture (04/27/23) Visit Care Team Role Provider Type Edison Narayanan MD Attending Provider Non-Staff Family Provider Primary Care Provider Referring Provider Specialty: Family Practice Address: [address] [place] [address], [address], [place], [address] Email: Plan Of Care PT-OP-T Assessment and Plan Start: 04/26/23 15:39 Freq: Status: Active Protocol: Document 04/27/23 14:39 [facility] (Rec: 04/27/23 18:24 [facility] [id number]) Physical Therapy Assessment Rehab Potential Rehabilitation Potential Good Evaluation Complexity Number of Personal Factors/Comorbidities 3 or More Number of Body Systems Impaired 4 or More Clinical Presentation at Evaluation Evolving Impairments Impairments Activity Tolerance,Balance, Functional Activities, Functional Mobility,Gait,Pain, Posture,ROM,Soft Tissue Mobility,Strength Other Impairments possibly vestibular based on reports of imbalance, but further assessment needed Goals activity Short Term Goal (STG) pt will be able to get to sleep w/o difficulty d/t neck pain STG Duration 06/04 Outpatient Facility Physical Therapist Goal (LTG) Pt will be able to go for at least 6 block walks before needing to sit w/dogs. LTG Duration 07/19 balance Impairment DGI 16 Outpatient Facility Physical Therapist Goal (LTG) Pt will imrpove DGI to at least 20 to show dec risk for falls LTG Duration 07/20/23 ROM Short Term Goal (STG) Pt will improve cervical rotation to at least 30 deg B to allow greater ease w/ driving STG Duration 06/04 Outpatient Facility Physical Therapist Goal (LTG) Pt will improve cervical rotation to at least 50 deg B w/no greater than 2/10 pain to allow greater ease w/driving LTG Duration 07/19 sit to stand Impairment 30 sec sit to stand -7 w/knees pushing into back of chair Correction Goal (LTG) Pt will improve 30 sec sit to stand to at least 9 to show dec fall risk based on age related norms. LTG Duration 07/19 Assessment Summary Assessment Pt presents w/c/o chronic neck and back pain w/focus being on neck pain as since her ACDF surgery in 2019, she has had difficulty getting comfortable and signfiicantly limited cervical rotation. 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 She does show imbalance w/slower gait and score on DGI. She also has dec LE strength noted by sit to stand test and signficiantly limited cervical motion. She reports falls w/getting dizzy w/activities like bending over and may have a vestibular component, but does require further assessement. She would benefit from skilled PT to work on balance, core, spinal mobility and dec pain and improve activity level. Physical Therapy Plan Frequency and Duration Frequency of Treatment 2x/Week Duration of treatment (weeks) 12 Plan of Care Start Date 04/27/23 Plan of Care End Date 07/20/23 Therapeutic Interventions Therapeutic Interventions Balance Training,Canalithic Repositioning,Gait Training, Home Exercise Program,Joint Mobilizations,Manual Therapy, Neuromuscular Re-education, Orthotic/Prosthetic Management ,Patient/Caregiver Education, Self-Care/Home Management,Soft Tissue Mobilization,Taping, Therapeutic Activities, Therapeutic Exercises, Vestibular Rehabilitation Modalities Cold Pack/Ice Massage,Electric Stimulation,Hot Packs, Infrared Therapy,Ultrasound Next Visit Focus/Plan Next Note Type Treatment Note Next Visit Plan Consider 6 min walk test, HEP: sit to stands, cervical ROM, shoulder ER and rows, open book, balance activity, thoracic mobility Manual: gentle soft tissue to cervical spine, and lumbar spine and gradually progress to gentle mobilizations Plan of Care Dates Plan of Care Start Date 04/27/23 Plan of Care End Date 07/20/23 Electronically Signed by: Shyanne Ferraro, PT 04/27/23 [id number] If you are in agreement with this Plan of Care, please return a signed and dated copy. I have reviewed this Plan of Care and certify that the skilled therapy services above are required to meet the patient?s needs. Physician Signature Date Printed Name and Credentials Clinical Instructor Signature Printed Name and Credentials
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
== END 2023-09-11 11:38 ==
LOC: PHYS 09:45
PROVIDERS: Family Provider Family Medicine; PCP Family Medicine; Referring Provider Family Medicine; Visit Provider Family Medicine
DX: M54.50 Low back pain, unspecified (principal); G89.29 Other chronic pain; R26.2 Difficulty in walking, not elsewhere classified; M54.2 Cervicalgia; R29.3 Abnormal posture; M62.81 Muscle weakness (generalized)
CPT/HCPCS: 97110; 97116; 97140; 97162; 97535

== ENCOUNTER → 2023-07-12 15:15 | Outpatient (CLI) | payer MEDICARE, BC, SELFPAY ==
[2022-07-20 09:41] VITALS: BMI 29.6
--- NOTE | 2023-07-12 15:16 | DI.MG.S_ITS ---
BILATERAL DIGITAL SCREENING MAMMOGRAM 3D/2D WITH CAD: 07/12/2023 CLINICAL: Routine screening. Family history of breast cancer. Comparison is made to exams dated: 12/28/2021 mammogram, 12/22/2020 mammogram, and 12/13/2017 mammogram - out side. There are scattered areas of fibroglandular density in both breasts (category b / 25%-50% glandular tissue). Current study was also evaluated with a Computer Aided Detection (CAD) system. No significant masses, calcifications, or other findings are seen in either breast. There has been no significant interval change. IMPRESSION: NEGATIVE There is no mammographic evidence of malignancy. A 1 year screening mammogram is recommended. Based on the Tyrer Cuzick model (a risk assessment model) the patient's lifetime risk is 0.5% and her 10 year risk is 0.0%. According to the ACR, ACS, and NCCN guidelines, an annual breast MRI exam along with mammogram is recommended if the patient's lifetime risk is 20% or greater. This exam was interpreted at Station ID: [id number]. NOTE: For mammograms, a report in lay terms will be sent to the patient. Approximately 15% of breast malignancies will not be visualized mammographically. In the management of a palpable breast mass, a negative mammogram must not discourage biopsy of a clinically suspicious lesion. Electronically Signed By: Gema Bonilla M.D., Ph.D. nora/mahnaz:07/14/2023 02:17:06 letter sent: Normal Exam ACR BI-RADS Category 1: Negative [id number]
== END ==
LOC: MAMMO 15:15
PROVIDERS: Family Provider Family Medicine; PCP Family Medicine; Referring Provider Family Medicine; Visit Provider Family Medicine
DX: Z12.31 Encounter for screening mammogram for malignant neoplasm of breast (principal); Z80.3 Family history of malignant neoplasm of breast; R92.323 Mammographic fibroglandular density, bilateral breasts
CPT/HCPCS: 77063; 77067

== ENCOUNTER → 2023-08-10 11:02 | Outpatient (CLI) | payer MEDICARE, BC, SELFPAY ==
[2022-07-20 09:41] VITALS: BMI 29.6
[2023-08-10 11:52] LABS: Add Manual Diff / Slide Review NO; Basophils Absolute Auto 0 /uL (0-100); Basophils Percent Auto 0.8 % (0-2); Eosinophils Absolute Auto 200 /uL (0-450); Hematocrit 33.2 % (36-46); Hemoglobin 11.7 g/dL (12.0-16.0); Lymphocytes Absolute Auto 1500 /uL (1100-4500); Lymphocytes Percent Auto 33.1 % (25-40); Mean Corpuscular HGB Conc 35.1 % (30-36); Mean Corpuscular Hemoglobin 33.8 PG (26-34); Mean Corpuscular Volume 96.2 fL (80-100); Monocytes Absolute Auto 300 /uL (0-900); Monocytes Percent Auto 5.7 % (3-14); Neutrophils Absolute Auto 2500 /uL (1500-7000); Neutrophils Percent Auto 56.4 % (50-75); Platelet Count 176 X10^3/uL (150-400); Red Blood Cell Count 3.45 X10^6/uL (4.0-5.2); White Blood Cell Count 4.5 X10^3/uL (4.5-11.0)
[2023-08-10 12:20] LABS: HEMOLYSIS < 15 (0-50); Iron 88 ug/dL (37-170)
[2023-08-10 12:21] LABS: Albumin 4.1 g/dL (3.5-5.0); BUN Creatinine Ratio 17.1 (6-22); Blood Urea Nitrogen 27 mg/dL (7-17); Carbon Dioxide 24 mmol/L (22-32); Chloride 109 mmol/L (98-107); Estimated Glomerular Filt Rate 32 mL/min (>60); Glucose 138 mg/dL (80-110); HEMOLYSIS < 15 (0-50); Phosphorous 3.1 mg/dL (2.8-4.1); Sodium 140 mmol/L (137-145)
[2023-08-10 12:30] LABS: Percent Iron Saturation 26 % (15-50); Total Iron Binding Capacity 333 ug/dL (265-497); Transferrin 269 mg/dL (206-381)
[2023-08-10 12:50] LABS: TSH w/ Reflex to FT4 4.16 uIU/mL (0.47-4.68)
== END ==
PROVIDERS: Family Provider Family Medicine; PCP Family Medicine; Referring Provider Family Medicine; Visit Provider Family Medicine
DX: M54.9 Dorsalgia, unspecified (principal); G47.00 Insomnia, unspecified; G89.29 Other chronic pain; E03.9 Hypothyroidism, unspecified; R53.83 Other fatigue; D50.8 Other iron deficiency anemias
CPT/HCPCS: 36415; 80069; 83540; 83550; 84443; 85025

== ENCOUNTER → 2023-09-06 13:22 | Outpatient (CLI) | payer MEDICARE, BC, SELFPAY ==
[2022-07-20 09:41] VITALS: BMI 29.6
--- NOTE | 2023-09-06 13:24 | DI.CT.S_ITS ---
PROCEDURE: CT CERVICAL SPINE WO CON INDICATIONS: Spinal stenosis, cervical region TECHNIQUE: Noncontrast 3 mm thick sections acquired from the skull base to the T4 level. Sagittal and coronal reformats were then constructed. For radiation dose reduction, the following was used: automated exposure control, adjustment of mA and/or kV according to patient size. COMPARISON: [facility], CR, XR CERVICAL SPINE 2 OR 3 VIEWS, 08/29/2023, 11:33. [facility], MR, MR CERVICAL SPINE WITHOUT CONTRAST, 01/11/2019, 15:40. FINDINGS: Image quality: Excellent. Bones: No fractures or dislocations. Visualized superior ribs are intact. There is overall straightening of the normal cervical lordosis. No focal AP alignment abnormality is seen. Anteriorly placed fixation hardware can be seen at the C3-C4 and C4-C5 levels. 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 This causes moderate central canal narrowing. There is at least moderate disc space narrowing seen at C2-C3. Associated endplate irregularity and sclerosis are seen. There is moderate to severe right-sided and moderate left-sided neural foraminal narrowing. Mild central canal narrowing is seen. At C3-C4, there is at least moderate disc osteophyte complex seen, with mild central disc osteophyte protrusion. Moderate facet joint hypertrophy is seen. Moderate to severe bilateral neural foraminal narrowing can be seen. Mild central canal narrowing is seen. At C4-C5, there is moderate disc osteophyte complex seen, with a central disc osteophyte protrusion. At least moderate facet hypertrophy is seen. Moderate to severe bilateral neural foraminal narrowing is seen. Mild to moderate central canal narrowing is seen. At C5-C6, there is moderate loss of disc height. Moderate disc osteophyte complex is seen, which is eccentric to the right. Prominent bridging anterior osteophytes are seen. There is moderate right-sided and mild left-sided neural foraminal narrowing. No significant central canal narrowing is seen. At C6-C7, at least moderate loss of disc height is seen. Prominent bridging endplate osteophytes can be seen anteriorly and on the left. Moderate generalized disc osteophyte complex is seen. Moderate bilateral neural foraminal narrowing is seen. Mild central canal narrowing is seen. At C7-T1, there is moderate to severe loss of disc height. Endplate irregularity and sclerosis can be seen. There is at least moderate right-sided and moderate left-sided neural foraminal narrowing. Mild central canal narrowing is seen. Generalized moderate degenerative changes can be seen of the visualized upper thoracic spine. Soft tissues: Prevertebral soft tissues are normal in thickness. No paravertebral hematomas. No apical pneumothoraces. Atherosclerotic calcification is noted. IMPRESSION: Multiple levels of significant cervical spine degenerative change can be seen by CT. Anteriorly placed fixation hardware can be seen at C3-C4 and C4-C5. 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 Dictated by: Thompson Loomis M.D. on 09/06/2023 at 16:47 Approved by: Thompson Loomis M.D. on 09/06/2023 at 16:53
== END ==
PROVIDERS: Family Provider Family Medicine; PCP Family Medicine; Referring Provider Orthopaedic Surgery Orthopaedic Surgery of the Spine; Visit Provider Orthopaedic Surgery Orthopaedic Surgery of the Spine
DX: M48.02 Spinal stenosis, cervical region (principal); M47.812 Spondylosis without myelopathy or radiculopathy, cervical region; N05.9 Unspecified nephritic syndrome with unspecified morphologic changes; D70.9 Neutropenia, unspecified; D63.1 Anemia in chronic kidney disease; N25.81 Secondary hyperparathyroidism of renal origin; N30.00 Acute cystitis without hematuria; R80.9 Proteinuria, unspecified; Z98.1 Arthrodesis status
CPT/HCPCS: 36415; 72125; 80048; 81001; 82570; 83970; 84156; 85014; 85018

== ENCOUNTER → 2023-09-06 13:25 | Outpatient (CLI) | payer MEDICARE, BC, SELFPAY ==
[2022-07-20 09:41] VITALS: BMI 29.6
[2023-09-06 14:42] LABS: Hematocrit 33.4 % (36-46); Hemoglobin 11.6 g/dL (12.0-16.0)
[2023-09-06 15:08] LABS: Appearance Urine UA CLEAR; BUN Creatinine Ratio 17.1 (6-22); Bilirubin Urine UA NEGATIVE (NEGATIVE); Blood Urea Nitrogen 26 mg/dL (7-17); Calcium 8.9 mg/dL (8.4-10.2); Carbon Dioxide 24 mmol/L (22-32); Chloride 109 mmol/L (98-107); Color Urine UA YELLOW; Estimated Glomerular Filt Rate 34 mL/min (>60); Glucose 123 mg/dL (80-110); Glucose Urine UA NEGATIVE (Negative); HEMOLYSIS < 15 (0-50); Ketones Urine UA NEGATIVE (NEGATIVE); Leukocyte Esterase Urine UA TRACE (NEGATIVE); Nitrite Urine UA NEGATIVE (Negative); Occult Blood Urine UA 1+ (Negative); Potassium 4.1 mmol/L (3.4-5.1); Protein Urine UA TRACE (Negative); Sodium 140 mmol/L (137-145)
[2023-09-06 15:14] LABS: pH Urine UA 5.5 (4.5-8.0)
[2023-09-06 15:28] LABS: Bacteria Urine Occasional (0-1); Culture Indicated Urine Cult Not Indicated; RBC Urine 0-1/HPF (0-5/HPF); Squamous Epithelial Cell Urine 1-5 /HPF (0-5/HPF); Urine Volume 10mL (spun); WBC Urine 1-5/HPF (0-5/HPF)
[2023-09-06 19:18] LABS: Creatinine Urine Random 227.58 mg/dL; Protein (Total) Urine Random 11 mg/dL (0-12); Protein Creatinine Ratio Urine 0.04 GRAM/24H
[2023-09-08 07:10] LABS: Parathyroid Hormone Int 65 pg/mL (15-65)
== END ==
PROVIDERS: Family Provider Family Medicine; PCP Family Medicine; Referring Provider Student in an Organized Health Care Education/Training Program; Visit Provider Student in an Organized Health Care Education/Training Program
DX: N05.9 Unspecified nephritic syndrome with unspecified morphologic changes (principal); D70.9 Neutropenia, unspecified; D63.1 Anemia in chronic kidney disease; N25.81 Secondary hyperparathyroidism of renal origin; N30.00 Acute cystitis without hematuria; R80.9 Proteinuria, unspecified
CPT/HCPCS: 36415; 80048; 81001; 82570; 83970; 84156; 85014; 85018

== ENCOUNTER → 2023-09-28 12:27 | Outpatient (CLI) | payer MEDICARE, BC, SELFPAY ==
[2022-07-20 09:41] VITALS: BMI 29.6
--- NOTE | 2023-09-28 12:30 | DI.ECHO.S_ITS ---
[place] [facility] : : [address] : [place] : : [id number] : : Phone: [phone] Echocardiogram Report + + :Name: VISHAL MACK Study Date: 09/28/2023 Height: 62 in : :[facility] ReadingLocation: Weight: 165 lb : : Gender: Female BSA: 1.8 m2 : :: 1940 Age: 83 yrs BP: 168/81 mmHg: :Reason For Study: MURMUR, HX OF RHEUMATIC FEVER : :Ordering Physician: KULDIP, : :RAIN Performed By: Adama Villar : :Referring: RAIN CHRISTIANSEN : + + Interpretation Summary The left ventricle is normal in size. The ejection fraction is estimated to be 70-75%. There has been no significant change in LVEF since the previous exam. The right ventricle is normal size. The right ventricular systolic function is normal. There is mild to moderate mitral regurgitation. Compared to the prior echo study, there has been an increase in the severity of mitral regurgitation. The aortic valve is not well visualized. The aortic valve is moderately calcified. The peak aortic velocity is 2.96 m/sec. The aortic valve mean gradient is 19.7 mmHg. CHERELLE(I,D): 1.3 cm2 sev ratio: 0.48 There is mild to moderate aortic stenosis. Compared to the prior echo study, there has been an increase in the severity of aortic stenosis. There is mild tricuspid regurgitation. Pulmonary artery pressures cannot be estimated because of the lack of a measurable TR jet velocity. The inferior vena cava was not visualized. Procedure: A two-dimensional transthoracic echocardiogram with color flow and Doppler was performed. The study quality was technically adequate. Comparison is made with the echocardiogram of 05/15/2020. The patient was in sinus rhythm with heart rates between 67-82 bpm during the exam. Left Ventricle: The left ventricle is normal in size. Proximal septal thickening is noted. There is no thrombus. The ejection fraction is estimated to be 70-75%. There has been no significant change since the previous exam. There are no focal wall motion abnormalities. Right Ventricle: The right ventricle is normal size. The right ventricular systolic function is normal. Atria: The left atrium is mildly dilated. The left atrium has mildly increased in size since the prior echo exam. Right atrial size is normal. The interatrial septum grossly appears intact with no obvious evidence for an atrial septal defect. Mitral Valve: MAC. There is mild mitral annular calcification. There is no mitral valve stenosis. There is mild to moderate mitral regurgitation. Compared to the prior echo study, there has been an increase in the severity of mitral regurgitation. Aortic Valve: The aortic valve is moderately calcified. The aortic valve is not well visualized. There is mild to moderate aortic stenosis. The peak aortic velocity is 2.96 m/sec. The aortic valve mean gradient is 19.7 mmHg. Compared to the prior echo study, there has been an increase in the severity of aortic stenosis. No aortic regurgitation is present. Tricuspid Valve: The tricuspid valve is not well visualized, but is grossly normal. There is no tricuspid stenosis. There is mild tricuspid regurgitation. Pulmonary artery pressures cannot be estimated because of the lack of a measurable TR jet velocity. Pulmonic Valve: The pulmonic valve is not well visualized. There is no pulmonic valvular stenosis. There is no pulmonic valvular regurgitation. Great Vessels: The aortic root is normal size. The dimensions of the ascending aorta are normal. The inferior vena cava was not visualized. Pericardium/ Pleura There is no pericardial effusion. There is an anterior echo-free space consistent with a fat pad. There is no pleural effusion. MMode/2D Measurements & Calculations LVIDd: 3.6 cm LVOT diam: 1.8 cm LVIDs: 2.4 cm Ao root diam: 2.7 cm FS: 34.8 % asc Aorta Diam: 2.8 cm IVSd: 0.99 cm LVPWd: 1.0 cm LV martin. diameter/BSA (cm/m^2): 2.1 LV sys. diameter/BSA (cm/m^2): 1.3 LA A2 area: 21.6 cm2 RA long axis: 5.2 cm LA A4 area: 21.1 cm2 RA area: 12.8 cm2 LA length (vol): 5.8 cm RA vol: 26.8 ml LA vol: 67.0 ml RA : 15.2 ml/m2 LA vol index: 38.0 ml/m2 RVD1 (basal): 2.9 cm RVD2 (mid): 2.6 cm TAPSE: 2.0 cm Doppler Measurements & Calculations Ao V2 max: 296.0 cm/sec LVOT Max Slade: 140.1 cm/sec Ao V2 mean: 203.0 cm/sec LV V1 max P.9 mmHg Ao max P.1 mmHg LV V1 VTI: 30.4 cm Ao mean P.7 mmHg CHERELLE(I,D): 1.3 cm2 Ao V2 VTI: 63.4 cm CHERELLE(V,D): 1.3 cm2 sev ratio: 0.48 CHERELLE indexed to BSA (cm^2/m^2): 0.73 TR max slade: 290.7 cm/sec SV(LVOT): 81.3 ml TR max P.8 mmHg PA V2 max: 96.2 cm/sec PA V2 mean: 64.8 cm/sec PA mean P.9 mmHg PA pr(Accel): 19.1 mmHg Reading Physician:12:07 PM
== END ==
PROVIDERS: Family Provider Family Medicine; PCP Family Medicine; Referring Provider Family Medicine; Visit Provider Family Medicine
DX: R07.89 Other chest pain (principal); R01.1 Cardiac murmur, unspecified; Z86.79 Personal history of other diseases of the circulatory system; I08.3 Combined rheumatic disorders of mitral, aortic and tricuspid valves
CPT/HCPCS: 93306

== ENCOUNTER → 2023-11-07 09:00 | Outpatient (CLI) | payer MEDICARE, BC, SELFPAY ==
[2022-07-20 09:41] VITALS: BMI 29.6
[2023-11-07 16:06] LABS: Influenza A - CEPHEID Flu A NEGATIVE (NEGATIVE); Influenza B - CEPHEID Flu B NEGATIVE (NEGATIVE); Respiratory Syncytial Virus Negative (Negative)
[2023-11-07 16:07] LABS: COVID-19 CEPHEID 4-PLEX PCR Negative (Negative)
== END ==
PROVIDERS: Family Provider Family Medicine; PCP Family Medicine; Visit Provider Family Medicine
DX: R53.83 Other fatigue (principal); R05.9 Cough, unspecified; R42 Dizziness and giddiness
CPT/HCPCS: 0241U

== ENCOUNTER → 2023-11-07 09:04 | Outpatient (CLI) | payer MEDICARE, BC, SELFPAY ==
[2022-07-20 09:41] VITALS: BMI 29.6
--- NOTE | 2023-11-07 09:06 | DI.RAD.S_ITS ---
PROCEDURE: XR CHEST 2V INDICATIONS: week of cough/fatigue/illness; history of COVID + bilateral PNA TECHNIQUE: 2 views of the chest were acquired. COMPARISON: [facility], CR, XR CHEST 1V, 01/04/2022, 17:49. FINDINGS: New mild to moderate bilateral diffuse peribronchial thickening with mild patchy lower lobe opacities some of which may be related expiratory result and subsegmental atelectasis however given the history, bronchitis, viral infection, early findings of bronchopneumonia or other process should be considered. No lobar consolidation. Mildly prominent kevin, pulmonary vessels and/or hilar lymph nodes with mildly prominent interstitial markings unchanged some of which may be chronic. Interstitial lung disease, atypical pneumonia, mycoplasma pneumonia or other process rarely could give this appearance. Moderate degenerate changes of the thoracic spine and shoulders unchanged. Chronic healed right posterior 5th rib fracture unchanged. No pneumothorax, no pleural effusion. Cardiopericardial silhouette within normal limits. IMPRESSION: New mild to moderate bilateral peribronchial thickening with lower lobe opacities as discussed above, bronchitis, viral infection, early findings of bronchopneumonia or other process should be considered. Mildly prominent kevin, pulmonary vessels and/or hilar lymph nodes with mildly prominent interstitial markings as discussed above unchanged. Follow-up suggested. If symptoms persist or worsen, CT could be performed. Dictated by: Jaylen Mendoza M.D. on 11/07/2023 at 10:22 Approved by: Jaylen Mendoza M.D. on 11/07/2023 at 10:27
== END ==
PROVIDERS: Family Provider Family Medicine; PCP Family Medicine; Referring Provider Family Medicine; Visit Provider Family Medicine
DX: R53.83 Other fatigue (principal); Z86.16 Personal history of COVID-19; J45.909 Unspecified asthma, uncomplicated; R05.9 Cough, unspecified; R42 Dizziness and giddiness
CPT/HCPCS: 0241U; 71046

== ENCOUNTER → 2023-11-13 15:56 | Outpatient (CLI) | payer MEDICARE, BC, SELFPAY ==
[2022-07-20 09:41] VITALS: BMI 29.6
[2023-11-13 17:36] LABS: Add Manual Diff / Slide Review NO; Basophils Absolute Auto 100 /uL (0-100); Basophils Percent Auto 0.9 % (0-2); Eosinophils Absolute Auto 200 /uL (0-450); Eosinophils Percent Auto 2.6 % (2-4); Hematocrit 35.6 % (36-46); Hemoglobin 12.4 g/dL (12.0-16.0); Lymphocytes Absolute Auto 2600 /uL (1100-4500); Lymphocytes Percent Auto 37.7 % (25-40); Mean Corpuscular HGB Conc 34.7 % (30-36); Mean Corpuscular Hemoglobin 33.4 PG (26-34); Mean Corpuscular Volume 96.2 fL (80-100); Monocytes Absolute Auto 500 /uL (0-900); Neutrophils Absolute Auto 3600 /uL (1500-7000); Neutrophils Percent Auto 51.8 % (50-75); Platelet Count 209 X10^3/uL (150-400); Red Cell Distribution Width 13.4 % (11.6-14.8); White Blood Cell Count 6.9 X10^3/uL (4.5-11.0)
[2023-11-13 17:54] LABS: Alanine Aminotransferase 18 IU/L (<35); Albumin 4.2 g/dL (3.5-5.0); Albumin Globulin Ratio 1.4 (1.0-2.8); Alkaline Phosphatase 115 U/L (38-126); Aspartate Aminotransferase 26 IU/L (14-36); BUN Creatinine Ratio 16.4 (6-22); Bilirubin Total 0.6 mg/dL (0.2-1.3); Blood Urea Nitrogen 25 mg/dL (7-17); Calcium 9.4 mg/dL (8.4-10.2); Carbon Dioxide 24 mmol/L (22-32); Chloride 106 mmol/L (98-107); Estimated Glomerular Filt Rate 34 mL/min (>60); Glucose 77 mg/dL (80-110); HEMOLYSIS < 15 (0-50); Potassium 3.7 mmol/L (3.4-5.1); Sodium 139 mmol/L (137-145); Total Protein 7.2 g/dL (6.3-8.2)
[2023-11-13 18:02] LABS: NT-proBNP (BNP-Adult 18+) 301 pg/mL (<450)
[2023-11-13 18:10] LABS: Procalcitonin 0.086 ng/mL (<0.5)
== END ==
LOC: LAB 15:57
PROVIDERS: Family Provider Family Medicine; PCP Family Medicine; Referring Provider Family Medicine; Visit Provider Family Medicine
DX: J45.909 Unspecified asthma, uncomplicated (principal); I50.21 Acute systolic (congestive) heart failure; R05.9 Cough, unspecified; R01.1 Cardiac murmur, unspecified; J18.9 Pneumonia, unspecified organism; R53.83 Other fatigue
CPT/HCPCS: 80053; 83880; 84145; 85025

== ENCOUNTER 2023-11-22 13:48 | Emergency (ER) | payer MEDICARE, BC, SELFPAY ==
[2022-07-20 09:41] VITALS: BMI 29.6
[2023-11-22 13:50] VITALS: BP 139/61; PULSE 102; RESP 18; TEMP 36.8; O2SAT 97; BMI 29.6
--- NOTE | 2023-11-22 13:54 | ED_ITS ---
<Statement entered by Billy Lord, - 11/22/23 16:40> Dr. Lord: I was immediately available in the department for consultation. Documentation has been reviewed. I agree with assessment and plan. HPI - Extremity Problem General Chief complaint: Extremity Injury, Lower Stated complaint: L achilles can't stand Time Seen by Provider: 11/22/23 13:54 History of Present Illness HPI Narrative: 83-year-old female presents this afternoon for the left Achilles pain. 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 and had immediate pain pointing to her distal Achilles on the left. She states she has been ?working on it all night trying to stretch?, she is denying any numbness or tingling or loss of sensation. She has pain with weightbear. She states she still is able to move foot but this does cause pain. So far as any previous injuries she believes 45 years ago she may have had an Achilles strain during basketball but she can not recall which side. No other treatment tried except for Tylenol 1000 mg about 2 hours ago. No recent quinolone usage she just finished erythromycin for bronchitis. History significant for asthma, osteoarthritis of spine, hyperlipidemia, iron deficiency anemia, impairment of balance, holosystolic murmur, chronic back pain, history of rheumatic fever. All other systems are reviewed and are negative. Related Data Home Medications Medication Instructions Recorded Confirmed acetaminophen 500 mg tablet 500 - 1,000 mg PO Q6H PRN Pain 01/04/21 11/13/23 (Acetaminophen Extra Strength) pantoprazole 40 mg tablet,delayed 40 mg PO DAILY 07/07/23 11/13/23 release simvastatin 40 mg tablet 40 mg PO DAILY 08/10/23 11/13/23 Previous Rx's Medication Instructions Recorded lorazepam 0.5 mg tablet 0.5 mg PO BID PRN anxiety #20 tabs 01/17/21 buspirone 15 mg tablet 15 mg PO ONCE #90 tabs 08/11/23 levothyroxine 125 mcg tablet 125 mcg PO DAILY #90 tabs 08/11/23 albuterol sulfate 90 mcg/actuation 2 puff inhalation Q4-6H PRN 11/06/23 aerosol inhaler (Ventolin HFA) shortness of breath or wheezing #8.5 grams budesonide-formoterol HFA 160 2 puff inhalation BID #10.2 grams 11/06/23 mcg-4.5 mcg/actuation aerosol inhaler (Breyna) levofloxacin 750 mg tablet 750 mg PO DAILY #5 tabs 11/13/23 sertraline 100 mg tablet 100 mg PO DAILY #90 tabs 11/15/23 Allergies Allergy/AdvReac Type Severity Reaction Status Date / Time bee venom protein (honey bee) Allergy Anaphylaxis Verified 11/13/23 15:26 atorvastatin [ATORVASTATIN] AdvReac Intermediate stomach Verified 11/13/23 15:26 cramps GENERAL ANESTHESIA AdvReac Severe SOMNOLENCE Uncoded 11/13/23 15:26 Review of Systems Review of Systems Narrative: All other systems reviewed and are negative. Patient History Medical History Small bowel obstruction (05/22/15) Hepatitis C Bradycardia ADHD Anxiety Depression Fragile skin Dermatitis BCC (basal cell carcinoma) Chronic back pain Hypothyroidism CKD (chronic kidney disease), stage III Ectopic beats HLD (hyperlipidemia) Asthma Hemorrhoids Vertigo Hearing loss GERD (gastroesophageal reflux disease) Osteoarthritis RLS (restless legs syndrome) Chronic neck pain Rheumatic fever (~194) Spinal stenosis SCC (squamous cell carcinoma) (~10/2018) Surgical History Hx of kyphoplasty (01/29/20) Hx of fusion of cervical spine (02/01/19) Hx of hemorrhoidectomy Hx of knee surgery Hx of abdominal surgery Hx of bilateral cataract extraction Hx of shoulder surgery History of carpal tunnel release Hx of appendectomy History of arthroplasty of right knee 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) Social History household members: spouse Smoking Status: Never smoker alcohol intake: current Smoking Status: Never smoker alcohol intake frequency: holidays/special occasions only Substance Use Type: does not use Exam Initial Vital Signs Initial Vital Signs: Vital signs reviewed and are normal. Const Other: She was brought in by wheelchair, she is seated, she was able to stand and pivot with assistance, no distress, she is here with her friend Hayley. Extrem Left lower extremity: normal capillary refill, lower leg Details: tenderness Location: other (Inferior Achilles just proximal to the calcaneal insertion, there is a small dimple, focal tenderness); no erythema and no ecchymosis and foot Details: normal capillary refill, normal to inspection, vascular exam Details: dorsalis pedis pulse present, posterior tibial pulse present and normal capillary refill and motor-sensory exam Details: light-touch normal and pin- prick normal; no tenderness and no ecchymosis; no cyanosis, no edema and joint enlargement noted Other: Active range of motion she is able to demonstrate dorsiflexion and extension against resistance. Perry's test is negative the Achilles does move this causes pain however. No issues identified with ankle inversion or eversion. Full active ROM of her distal phalanges against resistance. During stand from seated wheelchair to pivot she has painful weightbear of the left pointing to her Achilles. No calf tenderness. No upper lower leg tenderness. No issues identified with the knee. MDM - Extremity (Nontraumatic) Imaging Data Extremity x-ray #1: My Impression: Deferred to radiologist's official interpretation below. Radiologist's Impression: PROCEDURE: XR ANKLE LT MIN 3V INDICATIONS: achilles pain/felt a pop TECHNIQUE: 3 views of the ankle were acquired. COMPARISON: [facility] KATHY Lomas, XR ANKLE 3 VIEWS WEIGHT BEARING BILATERAL, 10/17/2023, 11:14. FINDINGS: Bones: No fractures or dislocations. Ankle mortise is normally aligned. No suspicious bony lesions. Prominent plantar calcaneal enthesophyte. Soft tissues: No tibiotalar joint effusion. Achilles tendon appears normal. IMPRESSION: No acute osseous abnormality. If pain persists with conservative management, consider repeat x-ray in 10-14 days or cross-sectional imaging. Dictated by: David Bajwa M.D. on 11/22/2023 at 14:28 Approved by: David Bajwa M.D. on 11/22/2023 at 14:29 [facility] Narrative Medical decision making narrative: She has good movement against resistance, dorsiflexion and extension are intact, she did have a small dimple on the posterior where she had some focal tenderness so my concern is possible partial tear. The x-ray showed no effusion or hemarthrosis, she has seen Dr. Shukla in the past I have asked her to contact Orthopedics for follow up, I have placed her in a lower leg boot that I have asked her to wear at all times at minimum for 2 weeks. She has an excellent understanding obviously of physiology and anatomy based on her previous career as a professor, discussed prevention of worsening injury or new injury, discussed fall precautions, she does have assisted devices at home as well as her friend Hayley that helps her with ADLs. Discharge Plan Departure Patient Disposition: Home Clinical Impression: Injury of left Achilles tendon Qualifiers: Encounter type: initial encounter Qualified Code(s): S86.002A - Unspecified injury of left Achilles tendon, initial encounter Instructions: DI for Achilles Tendinopathy, DI for Achilles Tendon Rupture Activity Restrictions/Additional Instructions: At this point I think you have an Achilles strain, but as you know you could have a partial tear, as you do have some pain and there was a small dimple, but you have good movement. I have placed you in a boot to prevent you from further injury, I would like you to call Dr. Shukla is office and schedule a follow- up for this, they might order additional imaging as an outpatient. Let them know you were seen in the emergency department. You can elevate, you can ice directly over the boot, please use caution when showering, use your shower chair, keep this boot dry, I would prefer that you wait for orthopedic evaluation but if in 2 weeks' time you have not been seen yet you might come out of the boot and see how you feel, always monitor your skin for any breakdown or wounds, any swelling, increased pain, tingling or numbness, please do not hesitate to return to the emergency department if you have any worrisome symptoms whatsoever. It was nice to meet you and I wish you the best of luck. Prescriptions: No Action buspirone 15 mg tablet 15 mg PO ONCE Qty: 90 1RF levothyroxine 125 mcg tablet 125 mcg PO DAILY Qty: 90 1RF budesonide-formoterol [Breyna] 160-4.5 mcg/actuation HFA aerosol inhaler 2 puff inhalation BID Qty: 10.2 6RF albuterol sulfate [Ventolin HFA] 90 mcg/actuation HFA aerosol inhaler 2 puff inhalation Q4-6H PRN (Reason: shortness of breath or wheezing) Qty: 8.5 10RF sertraline 100 mg tablet 100 mg PO DAILY Qty: 90 0RF pantoprazole 40 mg tablet,delayed release (DR/EC) 40 mg PO DAILY levofloxacin 750 mg tablet 750 mg PO DAILY Qty: 5 0RF simvastatin 40 mg tablet 40 mg PO DAILY acetaminophen [Acetaminophen Extra Strength] 500 mg Tablet 500 - 1,000 mg PO Q6H PRN (Reason: Pain) lorazepam 0.5 mg tablet 0.5 mg PO BID PRN (Reason: anxiety) Qty: 20 0RF Referrals: Sonja Coleman DO [Primary Care Provider] - Stand Alone Forms: Patient Portal/API
--- NOTE | 2023-11-22 14:04 | DI.RAD.S_ITS ---
PROCEDURE: XR ANKLE LT MIN 3V INDICATIONS: achilles pain/felt a pop TECHNIQUE: 3 views of the ankle were acquired. COMPARISON: [facility] KATHY Lomas, XR ANKLE 3 VIEWS WEIGHT BEARING BILATERAL, 10/17/2023, 11:14. FINDINGS: Bones: No fractures or dislocations. Ankle mortise is normally aligned. No suspicious bony lesions. Prominent plantar calcaneal enthesophyte. Soft tissues: No tibiotalar joint effusion. Achilles tendon appears normal. IMPRESSION: No acute osseous abnormality. If pain persists with conservative management, consider repeat x-ray in 10-14 days or cross-sectional imaging. Dictated by: David Bajwa M.D. on 11/22/2023 at 14:28 Approved by: David Bajwa M.D. on 11/22/2023 at 14:29
[2023-11-22 14:48] VITALS: BP 135/79; PULSE 92; RESP 18; O2SAT 98
== END 2023-11-22 14:47 | disposition home or self-care (01) ==
PROVIDERS: Emergency Provider Physician Assistant Medical; Family Provider Family Medicine; PCP Family Medicine
DX: S86.002A Unspecified injury of left Achilles tendon, initial encounter (principal); X58.XXXA Exposure to other specified factors, initial encounter
CPT/HCPCS: 73610; 99283

== ENCOUNTER → 2023-11-29 19:36 | Outpatient (CLI) | payer MEDICARE, BC, SELFPAY ==
[2022-07-20 09:41] VITALS: BMI 29.6
--- NOTE | 2023-11-29 19:39 | DI.MRI.S_ITS ---
PROCEDURE: MR ANKLE LT WO CON INDICATIONS: EVAL GASTROCNEMIUS AND LEFT ANKLE TECHNIQUE: Noncontrast sagittal T1 spin echo and T2 fast spin echo with fat saturation, axial proton density fast spin echo and T2 fast spin echo with fat saturation, coronal T1 spin echo and T2 fast spin echo with fat saturation through the ankle/hindfoot. COMPARISON: [facility], CR, XR ANKLE LT MIN 3V, 11/22/2023, 14:04. FINDINGS: Image quality: Excellent Tendons: Small amount of fluid at the master knot of Garry. Longitudinal split tear of the peroneal brevis, at the level of the posterior subtalar joint. Mild tendinosis of the peroneal longus at the level of the posterior subtalar joint, without tear. There is near full-thickness tear of the lateral aspect of the distal gastrocnemius aponeurosis, at the level of the distal soleus muscle. There is diffuse muscle edema of the distal soleus. There is superior tendon retraction with tendon gap of approximately 2.7 cm. Severe tendinosis of the distal Achilles tendon. Ligaments: The anterior and posterior tibiofibular ligament are intact. Mild sprain of the anterior talofibular ligament. The posterior talofibular ligament is intact. Mild sprain of the deep portion of the deltoid ligament. Sinus tarsi: No fibrosis Plantar fascia: Unremarkable Muscles: Normal in signal Bones: Mild degenerative changes of the midfoot with mild subchondral cystic changes. Plantar calcaneal enthesophyte. Diffuse subcutaneous edema of the ankle, extending into the dorsal midfoot. No significant tibiotalar or posterior subtalar effusion. IMPRESSION: 1. Near full-thickness tear of the lateral aspect of the distal gastrocnemius aponeurosis with 2.7 cm tendon gap. Additional severe tendinosis of the distal Achilles tendon. 2. Mild sprain of the lateral and medial ankle ligament. 3. Mild degenerative changes of the midfoot. Dictated by: Verito Ruiz M.D. on 11/30/2023 at 11:07 Approved by: Verito Ruiz M.D. on 11/30/2023 at 11:20
== END ==
LOC: MRI 19:38
PROVIDERS: Family Provider Family Medicine; PCP Family Medicine; Referring Provider Physician Assistant Surgical; Visit Provider Physician Assistant Surgical
DX: S86.812A Strain of other muscle(s) and tendon(s) at lower leg level, left leg, initial encounter (principal); S93.492A Sprain of other ligament of left ankle, initial encounter; X58.XXXA Exposure to other specified factors, initial encounter
CPT/HCPCS: 73721

== ENCOUNTER 2024-04-23 15:20 | Emergency (ER) | payer MEDICARE, SELFPAY ==
[2022-07-20 09:41] VITALS: BMI 29.6
[2024-04-23 15:28] VITALS: BP 123/62; PULSE 100; RESP 16; TEMP 36.4; O2SAT 97; BMI 29.2
[2024-04-23 15:48] LABS: Add Manual Diff / Slide Review NO; Basophils Absolute Auto 0 /uL (0-100); Basophils Percent Auto 0.8 % (0-2); Eosinophils Absolute Auto 100 /uL (0-450); Eosinophils Percent Auto 2.5 % (2-4); Hematocrit 34.7 % (36-46); Hemoglobin 12.3 g/dL (12.0-16.0); Lymphocytes Absolute Auto 1400 /uL (1100-4500); Lymphocytes Percent Auto 25.6 % (25-40); Mean Corpuscular HGB Conc 35.4 % (30-36); Mean Corpuscular Hemoglobin 33.8 PG (26-34); Mean Corpuscular Volume 95.6 fL (80-100); Monocytes Absolute Auto 200 /uL (0-900); Monocytes Percent Auto 4.2 % (3-14); Neutrophils Absolute Auto 3600 /uL (1500-7000); Neutrophils Percent Auto 66.9 % (50-75); Platelet Count 187 X10^3/uL (150-400); Red Blood Cell Count 3.63 X10^6/uL (4.0-5.2); Red Cell Distribution Width 13.8 % (11.6-14.8); White Blood Cell Count 5.3 X10^3/uL (4.5-11.0)
[2024-04-23 15:57] LABS: Alanine Aminotransferase 19 IU/L (<35); Albumin 4.4 g/dL (3.5-5.0); Albumin Globulin Ratio 1.7 (1.0-2.8); Alkaline Phosphatase 96 U/L (38-126); Aspartate Aminotransferase 26 IU/L (14-36); BUN Creatinine Ratio 12.5 (6-22); Bilirubin Total 0.8 mg/dL (0.2-1.3); Blood Urea Nitrogen 20 mg/dL (7-17); Carbon Dioxide 23 mmol/L (22-32); Chloride 106 mmol/L (98-107); Estimated Glomerular Filt Rate 32 mL/min (>60); Globulin 2.6 g/dL (1.7-4.1); Glucose 153 mg/dL (80-110); HEMOLYSIS < 15 (0-50); Lipase 54 U/L (23-300); Potassium 3.8 mmol/L (3.4-5.1); Sodium 140 mmol/L (137-145)
== END 2024-04-23 17:15 | disposition left against medical advice (07) ==
PROVIDERS: Emergency Provider Emergency Medicine; Family Provider Family Medicine; PCP Family Medicine
DX: R53.1 Weakness (principal); R29.6 Repeated falls; R41.0 Disorientation, unspecified
CPT/HCPCS: 80053; 83690; 85025; 99281

== ENCOUNTER 2024-05-21 12:50 | Emergency (ER) | payer MEDICARE, BC, SELFPAY ==
[2022-07-20 09:41] VITALS: BMI 29.6
[2024-05-21 12:59] VITALS: BP 159/70; PULSE 67; RESP 20; TEMP 37; O2SAT 100; BMI 28.3
--- NOTE | 2024-05-21 13:05 | EKG_ITS ---
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
--- NOTE | 2024-05-21 13:06 | DI.RAD.S_ITS ---
PROCEDURE: XR CHEST 1V INDICATIONS: chest pain TECHNIQUE: One view of the chest was acquired. COMPARISON: [facility], CR, XR CHEST 2V, 11/07/2023, 9:13. FINDINGS: Surgical changes and devices: None. Lungs and pleura: Lungs are clear. No pleural effusions or pneumothorax. Mediastinum: Mediastinal contours appear normal. Heart size is normal. Bones and chest wall: No suspicious bony lesions. Overlying soft tissues appear unremarkable. IMPRESSION: No acute cardiopulmonary pathology. Dictated by: Yoshi Olivier M.D. on 05/21/2024 at 13:30 Approved by: Yoshi Olivier M.D. on 05/21/2024 at 13:31
[2024-05-21 13:20] LABS: Add Manual Diff / Slide Review NO; Basophils Absolute Auto 0 /uL (0-100); Basophils Percent Auto 0.7 % (0-2); Eosinophils Absolute Auto 100 /uL (0-450); Eosinophils Percent Auto 2.8 % (2-4); Hematocrit 34.5 % (36-46); Hemoglobin 12.2 g/dL (12.0-16.0); Lymphocytes Absolute Auto 1500 /uL (1100-4500); Lymphocytes Percent Auto 30.4 % (25-40); Mean Corpuscular HGB Conc 35.3 % (30-36); Mean Corpuscular Hemoglobin 33.8 PG (26-34); Mean Corpuscular Volume 95.8 fL (80-100); Monocytes Absolute Auto 300 /uL (0-900); Monocytes Percent Auto 5.5 % (3-14); Neutrophils Absolute Auto 3000 /uL (1500-7000); Neutrophils Percent Auto 60.6 % (50-75); Platelet Count 181 X10^3/uL (150-400); Red Cell Distribution Width 13.7 % (11.6-14.8); White Blood Cell Count 4.9 X10^3/uL (4.5-11.0)
--- NOTE | 2024-05-21 13:20 | ED_ITS ---
HPI - Weakness General Chief complaint: Weakness Stated complaint: Weak x1 wk Time Seen by Provider: 05/21/24 13:12 Source: patient and EMS Mode of arrival: Ambulatory History of Present Illness HPI Narrative: 84-year-old female presents with weakness, cough with sputum production x 2 days and intermittent chest pain since yesterday evening with no radiating symptoms. Patient has not taken anything for it up to this point and is not actively having chest pain at this moment but says it is positional when she moves herself so that is when she notices she becomes short of breath and has chest pain in the midsternal region. other than what is stated 14 point review of system is negative Related Data Home Medications Medication Instructions Recorded Confirmed acetaminophen 500 mg tablet 500 - 1,000 mg PO Q6H PRN Pain 01/04/21 11/13/23 (Acetaminophen Extra Strength) pantoprazole 40 mg tablet,delayed 40 mg PO DAILY 07/07/23 11/13/23 release Previous Rx's Medication Instructions Recorded lorazepam 0.5 mg tablet 0.5 mg PO BID PRN anxiety #20 tabs 01/17/21 levothyroxine 125 mcg tablet 125 mcg PO DAILY #90 tabs 08/11/23 albuterol sulfate 90 mcg/actuation 2 puff inhalation Q4-6H PRN 11/06/23 aerosol inhaler (Ventolin HFA) shortness of breath or wheezing #8.5 grams budesonide-formoterol HFA 160 2 puff inhalation BID #10.2 grams 11/06/23 mcg-4.5 mcg/actuation aerosol inhaler (Breyna) levofloxacin 750 mg tablet 750 mg PO DAILY #5 tabs 11/13/23 buspirone 15 mg tablet 15 mg PO ONCE #90 tabs 01/26/24 sertraline 100 mg tablet 100 mg PO DAILY #90 tabs 01/26/24 simvastatin 40 mg tablet 40 mg PO DAILY #90 tabs 02/28/24 albuterol sulfate 90 mcg/actuation 1 inh inhalation Q4-6H PRN 05/21/24 breath activated powder inhaler shortness of breath or wheezing #1 ea prednisone 20 mg tablet 20 mg PO DAILY #5 tabs 05/21/24 Allergies Allergy/AdvReac Type Severity Reaction Status Date / Time bee venom protein (honey bee) Allergy Anaphylaxis Verified 05/21/24 12:52 atorvastatin [ATORVASTATIN] AdvReac Intermediate stomach Verified 05/21/24 12:52 cramps GENERAL ANESTHESIA AdvReac Severe SOMNOLENCE Uncoded 11/13/23 15:26 Review of Systems Review of Systems ROS Unobtainable: All systems reviewed & are unremarkable except as noted in HPI and below Patient History Medical History Small bowel obstruction (05/22/15) Hepatitis C Bradycardia ADHD Anxiety Depression Fragile skin Dermatitis BCC (basal cell carcinoma) Chronic back pain Hypothyroidism CKD (chronic kidney disease), stage III Ectopic beats HLD (hyperlipidemia) Asthma Hemorrhoids Vertigo Hearing loss GERD (gastroesophageal reflux disease) Osteoarthritis RLS (restless legs syndrome) Chronic neck pain Rheumatic fever (~194) Spinal stenosis SCC (squamous cell carcinoma) (~10/2018) Surgical History Hx of kyphoplasty (01/29/20) Hx of fusion of cervical spine (02/01/19) Hx of hemorrhoidectomy Hx of knee surgery Hx of abdominal surgery Hx of bilateral cataract extraction Hx of shoulder surgery History of carpal tunnel release Hx of appendectomy History of arthroplasty of right knee 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) Social History household members: spouse Smoking Status: Never smoker alcohol intake: current Smoking Status: Never smoker alcohol intake frequency: holidays/special occasions only Exam Narrative Exam Narrative: GENERAL: [84] year old patient appears stated age. Well-developed patient, in mild distress. HEAD: Atraumatic. Normocephalic. EYES: Pupils equal round and reactive. Extraocular motions intact. No scleral icterus. No injection or drainage. ENT: Nose without bleeding, purulent drainage. Throat without erythema, tonsillar hypertrophy or exudate. Airway patent. NECK: Trachea midline. Non tender CARDIOVASCULAR: Regular rate and rhythm without murmurs, gallops, or rubs. RESPIRATORY: Breath sounds bilaterally wheezes GASTROINTESTINAL: Abdomen soft, non-tender, nondistended. EXTREMITIES: No edema or joint tenderness. BACK: Nontender without deformity or crepitance. No flank tenderness. NEURO: AOx3. SKIN: No rash or erythema of visible areas Initial Vital Signs Initial Vital Signs: Vital Signs Temperature 98.6 F 05/21/24 12:59 Pulse Rate 67 05/21/24 12:59 Respiratory Rate 20 05/21/24 12:59 Blood Pressure 159/70 H 05/21/24 12:59 Pulse Oximetry 100 05/21/24 12:59 Oxygen Delivery Method Room Air 05/21/24 12:59 Course Orders Ordered: ED Orders 05/21/24 13:06 XR chest 1V Stat Complete Blood Count AUTO DIFF Stat Comprehensive Metabolic Panel Stat Lipase Stat Magnesium Stat NT-proBNP (BNP-Adult 18+) Stat PTT Partial Thromboplastin [place] Stat Prothrombin Time INR Stat Troponin & CK Cardiac Panel Stat EKG-12 Lead Stat 05/21/24 13:30 Covid-19 + FLU A/B + RSV - PCR Stat 05/21/24 14:45 Urine Microscopic Stat Discontinued Medications Albuterol/Ipratropium (Albuterol/Ipratropium 3 Ml Ampul) 3 ml INH NOW ONE Stop: 05/21/24 13:23 Last Admin: 05/21/24 13:30 Dose: 3 ml Documented By: SAT Aspirin (Aspirin 81 Mg Chew Tab) 324 mg PO NOW ONE Stop: 05/21/24 13:07 Last Admin: 05/21/24 14:07 Dose: Not Given Documented By: MPO Vital Signs Vital signs: Vital Signs - 8 hr 05/21/24 12:59 05/21/24 13:41 Temperature 98.6 F Pulse Rate 67 65 Respiratory Rate 20 16 Blood Pressure 159/70 H Pulse Oximetry 100 98 Oxygen Delivery Method Room Air Room Air All lab work, EKG, chest x-ray, all reviewed. All previous ER visits, vital signs, nurse triage note, medication list all reviewed as well. Patient was given a DuoNeb treatment here. Differential diagnosis includes STEMI NSTEMI CHF COPD asthma bronchitis COVID flu RSV UTI and dehydration. Patient will be discharged on albuterol inhaler and prednisone for the next couple of days and to return with new or worsening symptoms MDM - Weakness Lab Data 05/21/24 13:06 05/21/24 13:06 Labs: Lab Results 05/21/24 05/21/24 05/21/24 Range/Units 13:06 13:30 14:45 WBC 4.9 (4.5-11.0) X10^3/uL RBC 3.60 L (4.0-5.2) X10^6/uL Hgb 12.2 (12.0-16.0) g/dL Hct 34.5 L (36-46) % MCV 95.8 (80-100) fL MCH 33.8 (26-34) PG MCHC 35.3 (30-36) % RDW 13.7 (11.6-14.8) % Plt Count 181 (150-400) X10^3/uL Neut % (Auto) 60.6 (50-75) % Lymph % (Auto) 30.4 (25-40) % Webster % (Auto) 5.5 (3-14) % Eos % (Auto) 2.8 (2-4) % Baso % (Auto) 0.7 (0-2) % Neut # (Auto) 3000 (3368-7541) /uL Lymph # (Auto) 1500 (8253-5222) /uL Webster # (Auto) 300 (0-900) /uL Eos # (Auto) 100 (0-450) /uL Baso # (Auto) 0 (0-100) /uL PT 11.4 (9.4-12.5) SECONDS INR 1.0 (0.9-1.3) APTT 34 (25.1-36.5) SECONDS Sodium 140 (137-145) mmol/L Potassium 3.8 (3.4-5.1) mmol/L Chloride 106 (98-107) mmol/L Carbon Dioxide 24 (22-32) mmol/L BUN 26 H (7-17) mg/dL Creatinine 1.58 H (0.52-1.04) mg/dL Estimated GFR 32 L (>60) mL/min BUN/Creatinine Ratio 16.5 (6-22) Glucose 114 H (80-110) mg/dL Calcium 9.5 (8.4-10.2) mg/dL Magnesium 1.6 (1.6-2.3) mg/dL Total Bilirubin 0.7 (0.2-1.3) mg/dL AST 26 (14-36) IU/L ALT 18 (<35) IU/L Alkaline Phosphatase 99 (38-126) U/L Total Creatine Kinase 67 (30-135) U/L Troponin I < 0.012 (0.01-0.034) ng/mL NT-Pro-B Natriuret Pep 415 (<450) pg/mL Total Protein 7.2 (6.3-8.2) g/dL Albumin 4.4 (3.5-5.0) g/dL Globulin 2.8 (1.7-4.1) g/dL Albumin/Globulin Ratio 1.6 (1.0-2.8) Lipase 68 (23-300) U/L Urine RBC 0-1/hpf (0-5/HPF) Urine WBC 0-1/hpf (0-5/HPF) Ur Squamous Epith Cells 0-1 /hpf (0-5/HPF) Urine Bacteria Occasional (0-1) (None) Ur Culture Indicated? Cult not indicated Vol Urine Centrifuged 10ml (spun) SARS-CoV-2 (PCR) Negative (Negative) Influenza A (RT-PCR) Flu a negative (NEGATIVE) Influenza B (RT-PCR) Flu b negative (NEGATIVE) RSV (PCR) Negative (Negative) Imaging Data Chest x-ray: My Impression: [address] [address] XRay Report Signed Patient: Leonie Hamm MR#: [id number] : 1940 Acct:[id number] Age/Sex: 84 / F Date of Service: 05/21/24 Loc: ED Accession Number: [id number] Procedure: XR chest 1V Ordering Provider: Spencer Berry D.O. PROCEDURE: XR CHEST 1V INDICATIONS: chest pain TECHNIQUE: One view of the chest was acquired. COMPARISON: [facility], , XR CHEST 2V, 11/07/2023, 9:13. FINDINGS: Surgical changes and devices: None. Lungs and pleura: Lungs are clear. No pleural effusions or pneumothorax. Mediastinum: Mediastinal contours appear normal. Heart size is normal. Bones and chest wall: No suspicious bony lesions. Overlying soft tissues appear unremarkable. IMPRESSION: No acute cardiopulmonary pathology. ECG Data Attestation: I personally reviewed and interpreted this ECG as follows: Interpretation: NSR [address]-t wave changes ME 218 QRS 74 QT 428 Unchanged from 01/18/19 Discharge Plan Departure Patient Disposition: Home Clinical Impression: Acute bronchitis Qualifiers: Bronchitis organism: unspecified organism Qualified Code(s): J20.9 - Acute bronchitis, unspecified Instructions: Acute Bronchitis Activity Restrictions/Additional Instructions: return with new or worsening symptoms. Take your medicines as directed follow up with PCP in 1 week Prescriptions: New prednisone 20 mg tablet 20 mg PO DAILY Qty: 5 0RF albuterol sulfate 90 mcg/actuation aerosol powdr breath activated 1 inh inhalation Q4-6H PRN (Reason: shortness of breath or wheezing) Qty: 1 0RF No Action levothyroxine 125 mcg tablet 125 mcg PO DAILY Qty: 90 1RF budesonide-formoterol [Breyna] 160-4.5 mcg/actuation HFA aerosol inhaler 2 puff inhalation BID Qty: 10.2 6RF albuterol sulfate [Ventolin HFA] 90 mcg/actuation HFA aerosol inhaler 2 puff inhalation Q4-6H PRN (Reason: shortness of breath or wheezing) Qty: 8.5 10RF buspirone 15 mg tablet 15 mg PO ONCE Qty: 90 1RF sertraline 100 mg tablet 100 mg PO DAILY Qty: 90 0RF simvastatin 40 mg tablet 40 mg PO DAILY Qty: 90 3RF pantoprazole 40 mg tablet,delayed release (DR/EC) 40 mg PO DAILY levofloxacin 750 mg tablet 750 mg PO DAILY Qty: 5 0RF acetaminophen [Acetaminophen Extra Strength] 500 mg Tablet 500 - 1,000 mg PO Q6H PRN (Reason: Pain) lorazepam 0.5 mg tablet 0.5 mg PO BID PRN (Reason: anxiety) Qty: 20 0RF Referrals: Sonja Coleman DO [Primary Care Provider] - Stand Alone Forms: Patient Portal/API/Survey
[2024-05-21 13:22] LABS: Prothrombin Time 11.4 SECONDS (9.4-12.5)
[2024-05-21 13:24] LABS: PTT Partial Thromboplastin Tim 34 SECONDS (25.1-36.5)
[2024-05-21 13:25] LABS: Alanine Aminotransferase 18 IU/L (<35); Albumin 4.4 g/dL (3.5-5.0); Albumin Globulin Ratio 1.6 (1.0-2.8); Aspartate Aminotransferase 26 IU/L (14-36); BUN Creatinine Ratio 16.5 (6-22); Blood Urea Nitrogen 26 mg/dL (7-17); Carbon Dioxide 24 mmol/L (22-32); Chloride 106 mmol/L (98-107); Creatine Kinase 67 U/L (30-135); Estimated Glomerular Filt Rate 32 mL/min (>60); Globulin 2.8 g/dL (1.7-4.1); HEMOLYSIS < 15 (0-50); Lipase 68 U/L (23-300); Magnesium 1.6 mg/dL (1.6-2.3); Potassium 3.8 mmol/L (3.4-5.1); Sodium 140 mmol/L (137-145); Total Protein 7.2 g/dL (6.3-8.2)
[2024-05-21 13:26] LABS: Alkaline Phosphatase 99 U/L (38-126); Bilirubin Total 0.7 mg/dL (0.2-1.3); Calcium 9.5 mg/dL (8.4-10.2); Glucose 114 mg/dL (80-110)
[2024-05-21] MEDS: ALBUTEROL/IPRATROPIUM 3 ML AMPUL INH (13:30)
[2024-05-21 13:37] LABS: NT-proBNP (BNP-Adult 18+) 415 pg/mL (<450); Troponin I < 0.012 ng/mL (0.01-0.034)
[2024-05-21 13:41] VITALS: PULSE 65; RESP 16; O2SAT 98
[2024-05-21 14:11] LABS: Influenza A - CEPHEID Flu A NEGATIVE (NEGATIVE); Influenza B - CEPHEID Flu B NEGATIVE (NEGATIVE); Respiratory Syncytial Virus Negative (Negative)
[2024-05-21 14:12] LABS: COVID-19 CEPHEID 4-PLEX PCR Negative (Negative)
[2024-05-21 15:01] LABS: RBC Urine 0-1/HPF (0-5/HPF); Urine Volume 10mL (spun)
[2024-05-21 15:02] LABS: Bacteria Urine Occasional (0-1); Culture Indicated Urine Cult Not Indicated; Squamous Epithelial Cell Urine 0-1 /HPF (0-5/HPF); WBC Urine 0-1/HPF (0-5/HPF)
== END 2024-05-21 15:45 | disposition home or self-care (01) ==
PROVIDERS: Emergency Provider Family Medicine; Family Provider Family Medicine; PCP Family Medicine
DX: J20.9 Acute bronchitis, unspecified (principal); R07.9 Chest pain, unspecified
CPT/HCPCS: 0241U; 71045; 80053; 81015; 82550; 83690; 83735; 83880; 84484; 85025; 85610; 85730; 93005; 94640; 99283; 99284

== ENCOUNTER → 2024-07-19 15:17 | Outpatient (CLI) | payer MEDICARE, BC, SELFPAY ==
[2022-07-20 09:41] VITALS: BMI 29.6
--- NOTE | 2024-07-19 15:18 | DI.US.S_ITS ---
PROCEDURE: US ABDOMEN COMPLETE INDICATIONS: LUQ/LEFT FLANK PAIN TECHNIQUE: Real-time scanning was performed of the abdominal and retroperitoneal organs, with image documentation. COMPARISON: [facility], CT, CT CHEST WITHOUT CONTRAST, 02/07/2022, 14:56. FINDINGS: Liver: Liver is normal in size and homogeneous in echotexture. Gallbladder: Nondilated. No stones or sludge. Normal gallbladder wall thickness. No pericholecystic fluid. Negative sonographic Toney's sign. Biliary ducts: Intrahepatic bile ducts are non-dilated. Extrahepatic bile duct caliber measures 1 mm. Normal is 6-7 mm or less in diameter, or 10 mm or less post-cholecystectomy. Pancreas: Not well seen due to overlying bowel gas. Spleen: Spleen is normal in size and homogeneous in echotexture. Measures 9.1 cm. Kidneys: Kidneys are normal in size and echotexture. Right kidney measures 8 cm long; left kidney measures 8.9 cm long. No hydronephrosis or nephrolithiasis. No solid masses. Aorta: Visualized aorta is normal in caliber at less than 3 cm. Iliacs: Proximal common iliac arteries are normal in caliber at less than 2.5 cm. IVC: Not well seen. Miscellaneous: No free abdominal fluid. IMPRESSION: 1. No hydronephrosis. 2. No acute cholecystitis. No gallstones. Dictated by: Alcon Bradford M.D. on 07/19/2024 at 17:27 Approved by: Alcon Bradford M.D. on 07/19/2024 at 17:33
== END ==
PROVIDERS: Family Provider Family Medicine; PCP Family Medicine; Referring Provider Family Medicine; Visit Provider Family Medicine
DX: R10.9 Unspecified abdominal pain (principal); R10.12 Left upper quadrant pain
CPT/HCPCS: 76700

== ENCOUNTER 2024-08-07 15:13 | Emergency (ER) | payer MEDICARE, BC, SELFPAY ==
[2022-07-20 09:41] VITALS: BMI 29.6
[2024-08-07] VITALS (11 sets, daily range): BP systolic 138–175; BP diastolic 71–72; PULSE 63–102; RESP 18–29; TEMP 36.6; O2SAT 87–97; BMI 29.6
--- NOTE | 2024-08-07 15:26 | EKG_ITS ---
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
--- NOTE | 2024-08-07 15:29 | DI.RAD.S_ITS ---
PROCEDURE: XR CHEST 1V INDICATIONS: Shortness of breath TECHNIQUE: One view of the chest was acquired. COMPARISON: [facility], CR, XR CHEST 1V, 05/21/2024, 13:02. [facility], CR, XR CHEST 1V, 01/04/2022, 17:49. FINDINGS: Surgical changes and devices: None. Lungs and pleura: Lungs are clear. No pleural effusions or pneumothorax. Mediastinum: Mediastinal contours appear normal. Heart size is normal. Bones and chest wall: Old healed right sided rib fracture. No suspicious bony lesions. Overlying soft tissues appear unremarkable. IMPRESSION: No acute cardiopulmonary abnormality is seen. Approved by: Tra Voss M.D. on 08/07/2024 at 16:34
[2024-08-07 15:40] LABS: Add Manual Diff / Slide Review NO; Basophils Absolute Auto 100 /uL (0-100); Basophils Percent Auto 1.1 % (0-2); Eosinophils Absolute Auto 400 /uL (0-450); Eosinophils Percent Auto 6.4 % (2-4); Hematocrit 35.7 % (36-46); Hemoglobin 12.4 g/dL (12.0-16.0); Lymphocytes Absolute Auto 1500 /uL (1100-4500); Lymphocytes Percent Auto 27.3 % (25-40); Mean Corpuscular HGB Conc 34.8 % (30-36); Mean Corpuscular Hemoglobin 33.9 PG (26-34); Mean Corpuscular Volume 97.4 fL (80-100); Monocytes Absolute Auto 300 /uL (0-900); Monocytes Percent Auto 5.5 % (3-14); Neutrophils Absolute Auto 3300 /uL (1500-7000); Neutrophils Percent Auto 59.7 % (50-75); Platelet Count 192 X10^3/uL (150-400); Red Blood Cell Count 3.67 X10^6/uL (4.0-5.2); Red Cell Distribution Width 13.2 % (11.6-14.8); White Blood Cell Count 5.5 X10^3/uL (4.5-11.0)
[2024-08-07 15:41] LABS: INR 1.1 (0.9-1.3); Prothrombin Time 12.9 SECONDS (9.4-12.5)
--- NOTE | 2024-08-07 15:42 | ED_ITS ---
HPI - SOB/Dyspnea General Chief Complaint: Shortness of Breath/Dyspnea Stated Complaint: Epigastric Pain x2 Weeks Time Seen by Provider: 08/07/24 15:16 Source: patient and EMS Mode of arrival: EMS History of Present Illness HPI Narrative: 84-year-old female history of lumbar pain and radiculopathy and lumbar kyphoplasty seen back on July 30 of this year by the PCP started on Flexeril with no significant relief of her symptoms presents today with epigastric pain radiating to her back along with shortness of breath and dyspnea on exertion but no active chest pain at this time. Patient denies leg pain, leg swelling, history of DVT, or PE history, fever chills, hematuria, kidney stone history. Other than what is stated 14 point review of system is negative. Related Data Home Medications ?Medication ?Instructions ?Recorded ?Confirmed acetaminophen 500 mg tablet 500 - 1,000 mg PO Q6H PRN Pain 01/04/21 07/30/24 (Acetaminophen Extra Strength) pantoprazole 40 mg tablet,delayed 40 mg PO BID 06/14/ 5 07/30/24 release albuterol sulfate 90 mcg/actuation 1 puff inhalation Q 4-6H PRN 07/18/24 07/30/24 aerosol inhaler pregabalin 50 mg capsule 50 mg PO DAILY 07/19/2407/21 Previous Rx's ?Medication ?Instructions ?Recorded levothyroxine 125 mcg tablet 125 mcg PO DAILY #90 tabs 08/11/23 simvastatin 40 mg tablet 40 mg PO DAILY #90 tabs 10/14 Disabled [address]ing Permit 1 ea Not Applicable DAILY #1 ea 06/14/24 sertraline 100 mg tablet 100 mg PO DAILY #90 tabs pregabalin 25 mg capsule 25 mg PO DAILY #30 caps 06/21 10/14 tramadol 25 mg tablet 25 mg PO Q6H PRN pain #5 tab s 07/18/24 buspirone 15 mg tablet 15 mg PO DAILY #90 tabs 05/14 cyclobenzaprine 10 mg tablet 10 mg PO TID PRN muscle s pasm #60 07/30/24 tabs hydrocodone 5 mg-acetaminophen 325 1 tab PO Q4-6H PRN pain #10 tabs 08/07/24 mg tablet Allergies Allergy/AdvReac Type Severity Reaction Status Date / Time bee venom protein (honey bee) Allergy Anaphylaxis Verified 07/30/24 16:25 atorvastatin (ATORVASTATIN) AdvReac Intermediate stomach Verified 07/30/24 16:25 cramps GENERAL ANESTHESIA AdvReac Severe SOMNOLENCE Uncoded 07/30/24 16:25 Review of Systems Review of Systems ROS Unobtainable: All systems reviewed & are unremarkable except as noted in HPI and below Patient History Medical History (Updated 08/07/24 @ 18:44 by Spencer Berry DO) Acute low back pain due to trauma Fall High cholesterol (02/20/13) Chronic kidney disease, stage 3b Small bowel obstruction (05/22/15) Hepatitis C Bradycardia ADHD Anxiety Depression Fragile skin Dermatitis BCC (basal cell carcinoma) Chronic back pain Hypothyroidism CKD (chronic kidney disease), stage III Ectopic beats HLD (hyperlipidemia) Asthma Hemorrhoids Vertigo Hearing loss GERD (gastroesophageal reflux disease) Osteoarthritis RLS (restless legs syndrome) Chronic neck pain Rheumatic fever (~1944) Spinal stenosis SCC (squamous cell carcinoma) (~10/2018) Surgical History (Updated 06/14/24 @ 07:21 by Marquita Hargrove MA) History of lumbar fusion Hx of kyphoplasty (01/29/20) Hx of fusion of cervical spine (02/01/19) Hx of hemorrhoidectomy Hx of knee surgery Hx of abdominal surgery Hx of bilateral cataract extraction Hx of shoulder surgery History of carpal tunnel release Hx of appendectomy History of arthroplasty of right knee 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) Social History (Updated 07/18/24 @ 10:57 by Marquita Hargrove MA) household members: spouse alcohol intake: current alcohol intake frequency: holidays/special occasions only Exam Narrative Exam Narrative: GENERAL: [84] year old patient appears stated age. Well-developed patient, in mild distress. HEAD: Atraumatic. Normocephalic. EYES: Pupils equal round and reactive. Extraocular motions intact. No scleral icterus. No injection or drainage. ENT: Nose without bleeding, purulent drainage. Throat without erythema, tonsillar hypertrophy or exudate. Airway patent. NECK: Trachea midline. Non tender CARDIOVASCULAR: Regular rate and rhythm without murmurs, gallops, or rubs. RESPIRATORY: Clear to auscultation. Breath sounds equal bilaterally. No wheezes, rales, or rhonchi. GASTROINTESTINAL: Abdomen soft, TTP epigastric region, nondistended. EXTREMITIES: No edema or joint tenderness. BACK: Nontender without deformity or crepitance. No flank tenderness. NEURO: AOx3. SKIN: No rash or erythema of visible areas Initial Vital Signs Initial Vital Signs: Vital Signs Temperature 97.9 F 08/07/24 15:21 Pulse Rate 63 08/07/24 15:21 Respiratory Rate 18 08/07/24 15:21 Blood Pressure 150/72 H 08/07/24 15:21 Pulse Oximetry 97 08/07/24 15:21 Oxygen Delivery Method Room Air 08/07/24 15:21 Course Orders Ordered: ED Orders 08/07/24 15:16 Complete Blood Count AUTO DIFF Stat Comprehensive Metabolic Panel Stat Lactate (Lactic Acid) Stat NT-proBNP (BNP-Adult 18+) Stat Prothrombin Time INR Stat Troponin I Stat 08/07/24 15:26 EKG-12 Lead Stat 08/07/24 15:29 XR chest 1V Stat EKG-12 Lead Stat Measure peak expiratory flow STAT RT Consult Eval and Treat STAT 08/07/24 15:32 Consult to [employer] - [employer] Worker Stat Vital Signs Vital signs: Vital Signs - 8 hr 08/07/24 15:21 Temperature 97.9 F Pulse Rate 63 Respiratory Rate 18 Blood Pressure 150/72 H Pulse Oximetry 97 Oxygen Delivery Method Room Air MDM - SOB/Dyspnea Lab Data 08/07/24 15:16 08/07/24 15:16 Labs: Lab Results 08/07/24 Range/Units 15:16 PT 12.9 H (9.4-12.5) SECONDS INR 1.1 (0.9-1.3) Imaging Data CT scan - abdomen/pelvis: Radiologist's Impression: [place] [address] CT Scan Report Signed Patient: Leonie Hamm MR#: [id number] : 1940 Acct:[id number] Age/Sex: 84 / F Date of Service: 08/07/24 Loc: ED Accession Number: [id number] Procedure: CT abdomen pelvis w con Ordering Provider: Spencer Berry D.O. PROCEDURE: CT ABDOMEN PELVIS W CON INDICATIONS: abdomen/ back pain TECHNIQUE: After the administration of intravenous contrast, axial sections acquired from the lung bases to the pubic symphysis. Coronal and sagittal reformats were performed. For radiation dose reduction, the following was used: automated exposure control, adjustment of mA and/or kV according to patient size. COMPARISON: None. FINDINGS: Image quality: Diagnostic. Lower Chest: Tiny hiatal hernia. Mild bibasilar fibrosis. Coronary artery and aortic valvular calcification. ABDOMEN: Liver: Mild hepatic steatosis. Small left hepatic lobe cyst. Gallbladder: No wall thickening or calcified stones. Biliary ducts: No biliary dilation. Pancreas: Partially exophytic, oval, 1.0 cm pancreatic tail cystic mass. No peripancreatic fluid. No ductal dilatation. Spleen: Normal size. Small inferior pole cyst. Adrenal Glands: No adrenal nodules. Kidneys and Ureters: Mildly diminutive size and cortical thinning. Symmetric enhancement. No nephrolithiasis or hydronephrosis. Nondilated ureters. Stomach and Bowel: Normal stomach. Slightly prominent small bowel loops, a few with air-fluid levels. No suspicious wall thickening. No obstruction. The appendix was not seen. Mildly increased quantity of rectal stool. Normal colon. Peritoneum: No abnormal intraperitoneal fluid. No free air. Ventral Wall: No significant ventral hernia. Abdominal Nodes: No retroperitoneal or mesenteric adenopathy by size criteria. Vessels: The abdominal aorta, IVC, and portal vein are of normal caliber. Atherosclerotic calcification at the renal artery origins Moderate abdominal aortic atherosclerotic calcification. PELVIS: Pelvic Organs: Uterus and ovaries are normal. Bladder: No bladder wall thickening, accounting for underdistention. Pelvic Nodes: No enlarged lymph nodes. Miscellaneous: No inguinal hernias or suspicious pelvic soft tissue collections. Bones: No aggressive osseous abnormality. Vertebroplasty changes in L3. Posterior fusion of L4 and L5. Degenerative changes in both hip joints. No visible displaced rib or vertebral body fractures. IMPRESSION: Few prominent fluid-filled bowel loops with air-fluid levels suggesting gastroenteritis. No focal right-sided abnormalities to explain pain. Mild hepatic steatosis. ECG Data Interpretation: Sinus Tach HR 104 VT 234 QRS [address]-t wave change Changed from 05/21/24 [facility] Narrative Medical decision making narrative: All lab work, vital signs, nurse triage note, medication list, previous ER visits, and CT scan reviewed. CT scan showed few prominent fluid-filled bowel loops with air-fluid level suggesting gastroenteritis and mild hepatic steatosis. WBC normal BUN 23 creatinine 1.61 troponin was less than 0.012 1st set. EKG sinus tach heart rate of 104 but no STT wave changes. Patient given GI cocktail and tolerated p.o. challenge. Differential diagnosis includes pancreatitis diverticulitis kidney stone kidney infection. We will have patient follow up with Dr. Villatoro regarding 1.0 cm pancreatic tail cystic mass. Discharge Plan Departure Patient Disposition: Home Clinical Impression: Pancreas cyst Instructions: DI for Abdominal Pain-Adult Activity Restrictions/Additional Instructions: Return with new or worsening symptoms. Follow up with Dr. Villatoro regarding pancreatic cyst. Take medicines directed. Prescriptions: New hydrocodone-acetaminophen 5-325 mg tablet 1 tab PO Q4-6H PRN (Reason: pain) Qty: 10 0RF No Action levothyroxine 125 mcg tablet 125 mcg PO DAILY Qty: 90 1RF simvastatin 40 mg tablet 40 mg PO DAILY Qty: 90 3RF sertraline 100 mg tablet 100 mg PO DAILY Qty: 90 2RF pregabalin 25 mg capsule 25 mg PO DAILY Qty: 30 3RF pregabalin 50 mg capsule 50 mg PO DAILY buspirone 15 mg tablet 15 mg PO DAILY Qty: 90 1RF pantoprazole 40 mg tablet,delayed release (DR/EC) 40 mg PO BID albuterol sulfate 90 mcg/actuation HFA aerosol inhaler 1 puff inhalation Q4-6H PRN tramadol 25 mg tablet 25 mg PO Q6H PRN (Reason: pain) Qty: 5 0RF cyclobenzaprine 10 mg tablet 10 mg PO TID PRN (Reason: muscle spasm) Qty: 60 0RF Disabled Parking Permit 1 ea Not Applicable DAILY Qty: 1 0RF acetaminophen [Acetaminophen Extra Strength] 500 mg Tablet 500 - 1,000 mg PO Q6H PRN (Reason: Pain) Referrals: Sonja Coleman DO [Primary Care Provider, Family Practice] Stand Alone Forms: Patient Portal/API
--- NOTE | 2024-08-07 15:43 | PC.NURSE ---
Pt awake and alert. Reports severe pain to LUQ when sitting up in gurney. Denies feeling SOB at this time.
[2024-08-07 15:48] LABS: Alanine Aminotransferase 19 IU/L (<35); Albumin 4.6 g/dL (3.5-5.0); Albumin Globulin Ratio 1.7 (1.0-2.8); Alkaline Phosphatase 114 U/L (38-126); Aspartate Aminotransferase 29 IU/L (14-36); BUN Creatinine Ratio 14.3 (6-22); Blood Urea Nitrogen 23 mg/dL (7-17); Calcium 9.6 mg/dL (8.4-10.2); Carbon Dioxide 23 mmol/L (22-32); Chloride 105 mmol/L (98-107); Estimated Glomerular Filt Rate 31 mL/min (>60); Globulin 2.7 g/dL (1.7-4.1); Glucose 122 mg/dL (70-99); HEMOLYSIS < 15 (0-50); Potassium 3.7 mmol/L (3.4-5.1); Sodium 139 mmol/L (137-145); Total Protein 7.3 g/dL (6.3-8.2)
--- NOTE | 2024-08-07 15:51 | DI.CT.S_ITS ---
PROCEDURE: CT ABDOMEN PELVIS W CON INDICATIONS: abdomen/ back pain TECHNIQUE: After the administration of intravenous contrast, axial sections acquired from the lung bases to the pubic symphysis. Coronal and sagittal reformats were performed. For radiation dose reduction, the following was used: automated exposure control, adjustment of mA and/or kV according to patient size. COMPARISON: None. FINDINGS: Image quality: Diagnostic. Lower Chest: Tiny hiatal hernia. Mild bibasilar fibrosis. Coronary artery and aortic valvular calcification. ABDOMEN: Liver: Mild hepatic steatosis. Small left hepatic lobe cyst. Gallbladder: No wall thickening or calcified stones. Biliary ducts: No biliary dilation. Pancreas: Partially exophytic, oval, 1.0 cm pancreatic tail cystic mass. No peripancreatic fluid. No ductal dilatation. Spleen: Normal size. Small inferior pole cyst. Adrenal Glands: No adrenal nodules. Kidneys and Ureters: Mildly diminutive size and cortical thinning. Symmetric enhancement. No nephrolithiasis or hydronephrosis. Nondilated ureters. Stomach and Bowel: Normal stomach. Slightly prominent small bowel loops, a few with air-fluid levels. No suspicious wall thickening. No obstruction. The appendix was not seen. Mildly increased quantity of rectal stool. Normal colon. Peritoneum: No abnormal intraperitoneal fluid. No free air. Ventral Wall: No significant ventral hernia. Abdominal Nodes: No retroperitoneal or mesenteric adenopathy by size criteria. Vessels: The abdominal aorta, IVC, and portal vein are of normal caliber. Atherosclerotic calcification at the renal artery origins Moderate abdominal aortic atherosclerotic calcification. PELVIS: Pelvic Organs: Uterus and ovaries are normal. Bladder: No bladder wall thickening, accounting for underdistention. Pelvic Nodes: No enlarged lymph nodes. Miscellaneous: No inguinal hernias or suspicious pelvic soft tissue collections. Bones: No aggressive osseous abnormality. Vertebroplasty changes in L3. Posterior fusion of L4 and L5. Degenerative changes in both hip joints. No visible displaced rib or vertebral body fractures. IMPRESSION: Few prominent fluid-filled bowel loops with air-fluid levels suggesting gastroenteritis. No focal right-sided abnormalities to explain pain. Mild hepatic steatosis. Dictated by: Mendy Monique M.D. on 08/07/2024 at 17:20 Approved by: Mendy Monique M.D. on 08/07/2024 at 17:27
[2024-08-07 16:00] LABS: NT-proBNP (BNP-Adult 18+) 289 pg/mL (<450); Troponin I < 0.012 ng/mL (0.01-0.034)
[2024-08-07 18:21] LABS: Lipase 53 U/L (23-300)
[2024-08-07] MEDS: MAG HYDROX/ALUMINUM/SIMETH SUS 20 ML, LIDOCAINE VISCOUS 2% 15 ML PO (18:57)
== END 2024-08-07 19:35 | disposition home or self-care (01) ==
PROVIDERS: Emergency Provider Family Medicine; Family Provider Family Medicine; PCP Family Medicine
DX: K86.2 Cyst of pancreas (principal); R00.0 Tachycardia, unspecified; R06.02 Shortness of breath
CPT/HCPCS: 36415; 71045; 74177; 80053; 83605; 83690; 83880; 84484; 85025; 85610; 93005; 93010; 99284; Q9967

== ENCOUNTER → 2024-08-08 14:08 | Outpatient (CLI) | payer MEDICARE, BC, SELFPAY ==
[2022-07-20 09:41] VITALS: BMI 29.6
--- NOTE | 2024-08-08 14:09 | DI.CT.S_ITS ---
PROCEDURE: CT ABDOMEN PANCREATIC PROTOCOL INDICATIONS: Abdominal pain, mass of pancreas seen on ab/pelv CT 08/07/24 TECHNIQUE: Both before and after the administration of intravenous contrast, 3 mm thick pancreatic-phase images acquired from the diaphragm to the iliac crests. 3 mm thick coronal and sagittal reformats were performed. For radiation dose reduction, the following was used: automated exposure control, adjustment of mA and/or kV according to patient size. COMPARISON: [facility], CT, CT CHEST WITHOUT CONTRAST, 02/07/2022, 14:56. [facility], CT, CT ABDOMEN PELVIS W CON, 08/07/2024, 16:57. FINDINGS: Image quality: Diagnostic. Lower chest: Unremarkable. ABDOMEN: Liver: No solid mass. Small cyst in the left lobe is unchanged. Gallbladder: No radiopaque gallstones or wall thickening. Biliary ducts: No biliary dilation. Pancreas: No solid mass or suspicious enhancement. No ductal dilation. Small cyst at the body of the pancreas measuring 0.8 cm, (). No peripancreatic fluid collection. Adrenal Glands: No nodules. Spleen: Size is within normal limits. Small cyst or hemangioma. Kidneys and Ureters: No hydronephrosis. No solid mass. No complex renal cystic lesion which requires follow up. Stomach and Bowel: Normal colonic caliber, without significant wall thickening. Peritoneum: No abnormal intraperitoneal fluid. No free air. Ventral Wall: No hernia. Abdominal Nodes: No retroperitoneal or mesenteric adenopathy by size criteria. Vessels: Aorta and inferior vena cava are normal in size. Portal vein is patent. Bones: No aggressive osseous abnormality. Lower lumbar spine pedicle screw fixation. L3 vertebroplasty. IMPRESSION: 1. Small cyst in the body of the pancreas measuring 0.8 cm. This could represent a small IPMN. Consider follow-up pancreatic imaging MRI or CT in 2 years. 2. No adenopathy. No free fluid. Dictated by: Alcon Bradford M.D. on 08/08/2024 at 16:06 Approved by: Alcon Bradford M.D. on 08/08/2024 at 16:19
== END ==
PROVIDERS: Family Provider Family Medicine; PCP Family Medicine; Referring Provider Family Medicine; Visit Provider Family Medicine
DX: K86.2 Cyst of pancreas (principal); R10.9 Unspecified abdominal pain; K76.89 Other specified diseases of liver
CPT/HCPCS: 74170; Q9967

== ENCOUNTER 2024-08-09 14:31 | Emergency (ER) | payer MEDICARE, BC, SELFPAY ==
[2022-07-20 09:41] VITALS: BMI 29.6
[2024-08-09] VITALS (12 sets, daily range): BP systolic 138–170; BP diastolic 64–81; PULSE 69–75; RESP 15–23; TEMP 36.4; O2SAT 93–98; BMI 31.4
--- NOTE | 2024-08-09 14:43 | ED.WEAKNESS ---
HPI - Weakness General Chief complaint: Shortness of Breath/Dyspnea Stated complaint: SOB, weakness Time Seen by Provider: 08/09/24 14:34 History of Present Illness HPI Narrative: 84-year-old female history of lumbar pain and radiculopathy and lumbar kyphoplasty seen by me 2 days ago diagnosed with pancreatic cyst and had recent additional imaging for the pancreas yesterday presents via EMS today with weakness shaking difficulty ambulating and shortness of breath. Of note patient did also report falling backwards 2 days ago and having pain in the back that tightens up at times but no loss of consciousness, gait instability, bowel or bladder incontinence. Patient denies active chest pain, fever, chills, nausea, vomiting, cough, runny nose, sore throat, abdominal pain, sick contacts, or urinary complaint. Patient reports decreased oral intake and that she broke out in a sweat last night. Other than what is stated 14 point review of system is negative. Related Data Home Medications ?Medication ?Instructions ?Recorded ?Confirmed acetaminophen 500 mg tablet 500 - 1,000 mg PO Q6H PRN Pain 01/04/21 07/30/24 (Acetaminophen Extra Strength) pantoprazole 40 mg tablet,delayed 40 mg PO BID 06/14/24 07/30/24 release albuterol sulfate 90 mcg/actuation 1 puff inhalation Q4-6H PRN 07/18/24 07/30/24 aerosol inhaler pregabalin 50 mg capsule 50 mg PO DAILY 07/19/24 07/30/24 Previous Rx's ?Medication ?Instructions ?Recorded levothyroxine 125 mcg tablet 125 mcg PO DAILY #90 tabs 08/11/23 simvastatin 40 mg tablet 40 mg PO DAILY #90 tabs 02/28/24 [address]ing Permit 1 ea Not Applicable DAILY #1 ea 06/14/24 sertraline 100 mg tablet 100 mg PO DAILY #90 tabs 07/04/24 pregabalin 25 mg capsule 25 mg PO DAILY #30 caps 07/17/24 tramadol 25 mg tablet 25 mg PO Q6H PRN pain #5 tabs 07/18/24 buspirone 15 mg tablet 15 mg PO DAILY #90 tabs 07/23/24 cyclobenzaprine 10 mg tablet 10 mg PO TID PRN muscle spasm #60 07/30/24 tabs hydrocodone 5 mg-acetaminophen 325 1 tab PO Q4-6H PRN pain #10 tabs 08/07/24 mg tablet hydrocodone 5 mg-acetaminophen 325 1 tab PO Q4-6H PRN pain #20 tabs 08/09/24 mg tablet Allergies Allergy/AdvReac Type Severity Reaction Status Date / Time bee venom protein (honey bee) Allergy Anaphylaxis Verified 08/09/24 14:41 atorvastatin (ATORVASTATIN) AdvReac Intermediate stomach Verified 08/09/24 14:41 cramps GENERAL ANESTHESIA AdvReac Severe SOMNOLENCE Uncoded 08/09/24 14:41 Review of Systems Review of Systems ROS Unobtainable: All systems reviewed & are unremarkable except as noted in HPI and below Patient History Medical History (Updated 08/09/24 @ 18:03 by Spencer Berry DO) Acute low back pain due to trauma Fall High cholesterol (02/20/13) Chronic kidney disease, stage 3b Small bowel obstruction (05/22/15) Hepatitis C Bradycardia ADHD Anxiety Depression Fragile skin Dermatitis BCC (basal cell carcinoma) Chronic back pain Hypothyroidism CKD (chronic kidney disease), stage III Ectopic beats HLD (hyperlipidemia) Asthma Hemorrhoids Vertigo Hearing loss GERD (gastroesophageal reflux disease) Osteoarthritis RLS (restless legs syndrome) Chronic neck pain Rheumatic fever (~194) Spinal stenosis SCC (squamous cell carcinoma) (~10/2018) Surgical History (Updated 06/14/24 @ 07:21 by Marquita Hargrove MA) History of lumbar fusion Hx of kyphoplasty (01/29/20) Hx of fusion of cervical spine (02/01/19) Hx of hemorrhoidectomy Hx of knee surgery Hx of abdominal surgery Hx of bilateral cataract extraction Hx of shoulder surgery History of carpal tunnel release Hx of appendectomy History of arthroplasty of right knee 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) Social History (Updated 07/18/24 @ 10:57 by Marquita Hargrove MA) household members: spouse alcohol intake: current alcohol intake frequency: holidays/special occasions only Exam Narrative Exam Narrative: GENERAL: [84] year old patient appears stated age. Well-developed patient, in mild distress. HEAD: Atraumatic. Normocephalic. EYES: Pupils equal round and reactive. Extraocular motions intact. No scleral icterus. No injection or drainage. ENT: Nose without bleeding, purulent drainage. Throat without erythema, tonsillar hypertrophy or exudate. Airway patent. NECK: Trachea midline. Non tender CARDIOVASCULAR: Regular rate and rhythm without murmurs, gallops, or rubs. RESPIRATORY: Clear to auscultation. Breath sounds equal bilaterally. No wheezes, rales, or rhonchi. GASTROINTESTINAL: Abdomen soft, non-tender, nondistended. EXTREMITIES: No edema or joint tenderness. BACK: Nontender without deformity or crepitance. No flank tenderness. NEURO: AOx3. GCS 15 nonfocal neuro exam 5/5 upper and lower extremity [id number] opposite [id number]-[id number] rapid alternating movements intact SKIN: No rash or erythema of visible areas MDM - Weakness Imaging Data Chest x-ray: Radiologist Impression: [address] [address] XRay Report Signed Patient: Leonie Hamm MR#: [id number] : 1940 Acct:[id number] Age/Sex: 84 / F Date of Service: 08/09/24 Loc: ED Accession Number: [id number] Procedure: XR chest 1V Ordering Provider: Spencer Berry D.O. PROCEDURE: XR CHEST 1V INDICATIONS: chest pain TECHNIQUE: One view of the chest was acquired. COMPARISON: [facility], , XR CHEST 1V, 08/07/2024, 15:39. FINDINGS: Surgical changes and devices: None. Lungs and pleura: Lungs are clear. No pleural effusions or pneumothorax. Mediastinum: Mediastinal contours appear normal. Heart size is enlarged. Bones and chest wall: No suspicious bony lesions. Overlying soft tissues appear unremarkable. IMPRESSION: No acute pulmonary process. CT scan - chest: Radiologist Impression: [address] [address] [address] Scan Report Signed Patient: Leonie Hamm MR#: [id number] : 1940 Acct:[id number] Age/Sex: 84 / F Date of Service: 08/09/24 Loc: ED Accession Number: [id number] Procedure: CT angio chest PE protocol Ordering Provider: Spencer Berry D.O. PROCEDURE: CT ANGIO CHEST PE PROTOCOL INDICATIONS: sob, kahn, back pain, TECHNIQUE: After the administration of intravenous contrast, 2 mm thick sections acquired from the pulmonary apices to the posterior costophrenic angles. 3-dimensional maximum intensity projection (MIP) coronal and sagittal reformats were then acquired through the thorax. For radiation dose reduction, the following was used: automated exposure control, adjustment of mA and/or kV according to patient size. COMPARISON: None. FINDINGS: Image quality: Diagnostic. Pulmonary arteries: Pulmonary arteries are normal in size, and demonstrate no intraluminal filling defects to suggest central pulmonary embolism. Lower Neck: No enlarged lymph nodes. Thyroid: No thyroid nodules which require sonographic follow up, per consensus guidelines. Axillae: No enlarged lymph nodes. Chest Wall: Unremarkable. Bones: Unremarkable. Lungs and Pleura: No pneumothorax or pleural effusions. No consolidation or suspicious nodules. Heart: Heart size is normal. No pericardial effusion. Thoracic Vessels: No aortic aneurysm. Mediastinum and Sara: No enlarged lymph nodes. Esophagus: No wall thickening. Small hiatal hernia. Upper Abdomen: Visualized upper abdomen solid organs and bowel loops appear normal. IMPRESSION: No pulmonary embolus. No acute cardiopulmonary process. Small hiatal hernia behind the heart incidentally noted. ECG Data Interpretation: NSR HR 70 NH 204 QRS [address]-t wave change Change from 08/07/24 MDM Narrative Medical decision making narrative: Vital signs, nurse triage note, medication list, previous ER visits, and all imaging studies reviewed. Patient given fluids and morphine here. Differential diagnosis includes PE, pancreatitis, aortic aneurysm dissection, back spasm, UTI, kidney in fact, arthritis. DC home on [address]. Lab work showed normal white count no left shift, BUN 25 creatinine 1.62 creatinine less than 0.012 procalcitonin 0.088. UA showed no acute process. Chest x-ray showed no acute process, CTA showed no PE small hiatal hernia. Discharge Plan Departure Patient Disposition: Home Clinical Impression: Breath shortness, Pancreas cyst Acute low back pain Qualifiers: Back pain laterality: right Sciatica presence: without sciatica Qualified Code(s): M54.50 - Low back pain, unspecified Instructions: DI for Low Back Pain Activity Restrictions/Additional Instructions: Return with new or worsening symptoms. Follow up PCP in 1-2 weeks if no improvement in symptoms. Take your medicines as directed. Prescriptions: New hydrocodone-acetaminophen 5-325 mg tablet 1 tab PO Q4-6H PRN (Reason: pain) Qty: 20 0RF No Action levothyroxine 125 mcg tablet 125 mcg PO DAILY Qty: 90 1RF simvastatin 40 mg tablet 40 mg PO DAILY Qty: 90 3RF sertraline 100 mg tablet 100 mg PO DAILY Qty: 90 2RF pregabalin 25 mg capsule 25 mg PO DAILY Qty: 30 3RF pregabalin 50 mg capsule 50 mg PO DAILY buspirone 15 mg tablet 15 mg PO DAILY Qty: 90 1RF pantoprazole 40 mg tablet,delayed release (DR/EC) 40 mg PO BID albuterol sulfate 90 mcg/actuation HFA aerosol inhaler 1 puff inhalation Q4-6H PRN tramadol 25 mg tablet 25 mg PO Q6H PRN (Reason: pain) Qty: 5 0RF cyclobenzaprine 10 mg tablet 10 mg PO TID PRN (Reason: muscle spasm) Qty: 60 0RF Disabled Parking Permit 1 ea Not Applicable DAILY Qty: 1 0RF acetaminophen [Acetaminophen Extra Strength] 500 mg Tablet 500 - 1,000 mg PO Q6H PRN (Reason: Pain) hydrocodone-acetaminophen 5-325 mg tablet 1 tab PO Q4-6H PRN (Reason: pain) Qty: 10 0RF Referrals: Sonja Coleman DO [Primary Care Provider, Family Practice] Stand Alone Forms: Patient Portal/API
--- NOTE | 2024-08-09 14:52 | DI.RAD.S_ITS ---
PROCEDURE: XR CHEST 1V INDICATIONS: chest pain TECHNIQUE: One view of the chest was acquired. COMPARISON: [facility], CR, XR CHEST 1V, 08/07/2024, 15:39. FINDINGS: Surgical changes and devices: None. Lungs and pleura: Lungs are clear. No pleural effusions or pneumothorax. Mediastinum: Mediastinal contours appear normal. Heart size is enlarged. Bones and chest wall: No suspicious bony lesions. Overlying soft tissues appear unremarkable. IMPRESSION: No acute pulmonary process. Dictated by: Gerri Carlson M.D. on 08/09/2024 at 15:21 Approved by: Gerri Carlson M.D. on 08/09/2024 at 15:21
--- NOTE | 2024-08-09 14:53 | DI.CT.S_ITS ---
PROCEDURE: CT ANGIO CHEST PE PROTOCOL INDICATIONS: sob, kahn, back pain, TECHNIQUE: After the administration of intravenous contrast, 2 mm thick sections acquired from the pulmonary apices to the posterior costophrenic angles. 3-dimensional maximum intensity projection (MIP) coronal and sagittal reformats were then acquired through the thorax. For radiation dose reduction, the following was used: automated exposure control, adjustment of mA and/or kV according to patient size. COMPARISON: None. FINDINGS: Image quality: Diagnostic. Pulmonary arteries: Pulmonary arteries are normal in size, and demonstrate no intraluminal filling defects to suggest central pulmonary embolism. Lower Neck: No enlarged lymph nodes. Thyroid: No thyroid nodules which require sonographic follow up, per consensus guidelines. Axillae: No enlarged lymph nodes. Chest Wall: Unremarkable. Bones: Unremarkable. Lungs and Pleura: No pneumothorax or pleural effusions. No consolidation or suspicious nodules. Heart: Heart size is normal. No pericardial effusion. Thoracic Vessels: No aortic aneurysm. Mediastinum and Sara: No enlarged lymph nodes. Esophagus: No wall thickening. Small hiatal hernia. Upper Abdomen: Visualized upper abdomen solid organs and bowel loops appear normal. IMPRESSION: No pulmonary embolus. No acute cardiopulmonary process. Small hiatal hernia behind the heart incidentally noted. Dictated by: Carlos Reyes M.D. on 08/09/2024 at 16:45 Approved by: Carlos Reyes M.D. on 08/09/2024 at 16:46
[2024-08-09 15:00] LABS: Add Manual Diff / Slide Review NO; Basophils Absolute Auto 100 /uL (0-100); Eosinophils Absolute Auto 300 /uL (0-450); Eosinophils Percent Auto 5.3 % (2-4); Hematocrit 35.7 % (36-46); Hemoglobin 12.4 g/dL (12.0-16.0); Lymphocytes Absolute Auto 1300 /uL (1100-4500); Lymphocytes Percent Auto 24.9 % (25-40); Mean Corpuscular HGB Conc 34.9 % (30-36); Mean Corpuscular Hemoglobin 33.7 PG (26-34); Mean Corpuscular Volume 96.5 fL (80-100); Monocytes Absolute Auto 300 /uL (0-900); Monocytes Percent Auto 6.2 % (3-14); Neutrophils Absolute Auto 3200 /uL (1500-7000); Neutrophils Percent Auto 62.6 % (50-75); Platelet Count 186 X10^3/uL (150-400); Red Blood Cell Count 3.69 X10^6/uL (4.0-5.2); Red Cell Distribution Width 13.3 % (11.6-14.8); White Blood Cell Count 5.1 X10^3/uL (4.5-11.0)
--- NOTE | 2024-08-09 15:04 | EKG_ITS ---
[address] [address] Test Date: 2024-08-09 Pat Name: Leonie Hamm Department: Room: Gender: Female Utilization Manager: JAISON : 1940 Requested By: Order Number: [id number] Reading MD: Spencer Acosta MD Measurements Intervals [place] Rate: 70 P: 21 MA: 204 QRS: 2 QRSD: 76 T: 4 QT: 426 QTc: 460 Interpretive Statements Normal sinus rhythm Minimal voltage criteria for LVH, may be normal variant ( R in aVL ) Electronically Signed On 08-09-2024 17:12:16 PDT by Spencer Acosta MD
[2024-08-09 15:15] LABS: Alanine Aminotransferase 17 IU/L (<35); Albumin 4.7 g/dL (3.5-5.0); Albumin Globulin Ratio 1.8 (1.0-2.8); Alkaline Phosphatase 113 U/L (38-126); Aspartate Aminotransferase 32 IU/L (14-36); BUN Creatinine Ratio 15.4 (6-22); Bilirubin Total 0.9 mg/dL (0.2-1.3); Blood Urea Nitrogen 25 mg/dL (7-17); Calcium 9.8 mg/dL (8.4-10.2); Carbon Dioxide 26 mmol/L (22-32); Chloride 105 mmol/L (98-107); Creatine Kinase 110 U/L (30-135); Estimated Glomerular Filt Rate 31 mL/min (>60); Globulin 2.6 g/dL (1.7-4.1); Glucose 94 mg/dL (70-99); HEMOLYSIS < 15 (0-50); Lactate (Lactic Acid) 0.9 mmol/L (0.7-2.1); Lipase 41 U/L (23-300); Potassium 3.9 mmol/L (3.4-5.1); Sodium 139 mmol/L (137-145); Total Protein 7.3 g/dL (6.3-8.2)
[2024-08-09 15:27] LABS: Troponin I < 0.012 ng/mL (0.01-0.034)
[2024-08-09 15:30] LABS: Procalcitonin 0.088 ng/mL (<0.5)
[2024-08-09] MEDS: LACTATED RINGERS 500 ML 1000 ML IV (16:38)
[2024-08-09] MEDS: MORPHINE 4 MG/ML INJ IV (17:24)
[2024-08-09 17:47] LABS: Bacteria Urine Few (2-10); RBC Urine 0-1/HPF (0-5/HPF); Squamous Epithelial Cell Urine None Seen (0-5/HPF); Urine Volume 10mL (spun); WBC Urine 1-5/HPF (0-5/HPF)
[2024-08-09 17:49] LABS: Culture Indicated Urine Cult Not Indicated
== END 2024-08-09 19:45 | disposition home or self-care (01) ==
PROVIDERS: Emergency Provider Family Medicine; Family Provider Family Medicine; PCP Family Medicine
DX: M54.50 Low back pain, unspecified (principal); R06.02 Shortness of breath; K86.2 Cyst of pancreas; R07.9 Chest pain, unspecified
CPT/HCPCS: 36415; 71045; 71275; 80053; 81003; 81015; 82550; 83605; 83690; 84145; 84484; 85025; 87040; 93005; 93010; 96361; 96374; 99284; J2270

== ENCOUNTER → 2024-09-06 12:35 | Outpatient (CLI) | payer MEDICARE, BC, SELFPAY ==
[2022-07-20 09:41] VITALS: BMI 29.6
--- NOTE | 2024-09-06 12:37 | DI.RAD.S_ITS ---
PROCEDURE: XR LUMBAR SPINE MIN 4V INDICATIONS: BACK PAIN TECHNIQUE: 5 views of the lumbar spine were acquired, including bilateral oblique views. COMPARISON: [facility], CT, CT ABDOMEN PELVIS W CON, 08/07/2024, 16:57. FINDINGS: Bones: 5 nonrib-bearing vertebrae are present. Vertebroplasty changes are noted at the L3 level. Posterior fixation hardware at the L4-5 level with bilateral pedicle screws, interbody rods, and a disc spacer. Trace dextroconvex curvature. No acute vertebral body compression fractures. No suspicious bony lesions. Generalized bony demineralization. Multilevel disc space narrowing and degenerative endplate changes. Multilevel facet hypertrophy. Partial ankylosis of the sacroiliac joints. Soft tissues: Overlying bowel gas pattern is normal. No suspicious soft tissue calcifications. Oblique images: No pars defects. IMPRESSION: 1. Postsurgical changes from prior posterior fixation at the L4-5 level as well L3 vertebroplasty. 2. No acute osseous abnormality. 3. Multilevel lumbar spondylosis most notably at the L1-2 level. Approved by: Tra Voss M.D. on 09/06/2024 at 15:52
== END ==
PROVIDERS: PCP Family Medicine; Referring Provider Family Medicine; Visit Provider Family Medicine
DX: M47.816 Spondylosis without myelopathy or radiculopathy, lumbar region (principal); M54.9 Dorsalgia, unspecified; Z98.1 Arthrodesis status
CPT/HCPCS: 72110